=== PATIENT | female | born 1955 | race Caucasian/White ===

== ENCOUNTER → 2017-04-09 | Outpatient (CLI) | payer OTHER ==
[~2017-04-09] VITALS: Ht 157.5 cm; Wt 109.0 kg
[2017-04-09 16:13] VITALS: BP 142/83; PULSE 82; Ht 157.5 cm; Wt 109.0 kg
== END | disposition home or self-care (01) ==
LOC: C.NEUR 15:25
PROVIDERS: ATTEND Internal Medicine Pulmonary Disease
DX: G47.33 Obstructive sleep apnea (adult) (pediatric) (principal)

== ENCOUNTER 2017-07-09 07:06 | Inpatient (IN) | payer OTHER ==
[2017-06-24 11:34] VITALS: BMI 44.0
--- NOTE | 2017-06-24 12:16 | PAT Medication Instructions ---
Service Date Jun 24, 2017. Current Home Medication List Atorvastatin (Lipitor), 20 MG PO HS Citalopram Hydrobromide (Celexa), 20 MG PO QAM Diltiazem Hcl Ext Rel (Tiazac), 240 MG PO QAM Fish Oil ([place]-3), 2 CAP PO NOON Hydrocodon/Acetaminophen 5MG/300MG (Vicodin (5MG/300MG)), 1 TAB PO BID PRN for RN Levothyroxine Sodium (Levothyroxine Sodium), 1 TAB PO QAM Losartan Potassium (Cozaar), 100 MG PO QAM Multivitamin (Multivitamin), 1 TAB PO QAM Pantoprazole (Protonix), 40 MG PO QPM Potassium Ext Rel (Klor-Con), 20 MEQ PO NOON Triamterene/Hctz (Triamterene/Hctz 37.5-25MG), 1 TAB PO QAM Medication Instructions For Your Scheduled Surgery - Hold the following medications 2 weeks prior to surgery: Fish Oil ([place]-3), 2 CAP PO NOON - Hold the following medications the morning of surgery: Losartan Potassium (Cozaar), 100 MG PO QAM Multivitamin (Multivitamin), 1 TAB PO QAM Potassium Ext Rel (Klor-Con), 20 MEQ PO NOON Triamterene/Hctz (Triamterene/Hctz 37.5-25MG), 1 TAB PO QAM - Take the following medications the morning of surgery with a sip of water: Citalopram Hydrobromide (Celexa), 20 MG PO QAM Diltiazem Hcl Ext Rel (Tiazac), 240 MG PO QAM Hydrocodon/Acetaminophen 5MG/300MG (Vicodin (5MG/300MG)), 1 TAB PO BID PRN (if needed, can be taken up to four hours before surgery) Levothyroxine Sodium (Levothyroxine Sodium), 1 TAB PO QAM - Take the following medications as scheduled the night before surgery: Atorvastatin (Lipitor), 20 MG PO HS Hydrocodon/Acetaminophen 5MG/300MG (Vicodin (5MG/300MG)), 1 TAB PO BID PRN (if needed) Pantoprazole (Protonix), 40 MG PO QPM If you have any questions please call us at [phone] or [phone] or [phone]
[2017-06-24 13:09] LABS: BASO % 0.5 %; BASO ABS # 0.03 K/uL (0-0.2); EOS % 1.7 %; HEMATOCRIT 42.4 % (37-47); HEMOGLOBIN 14.4 g/dL (12.0-16.0); LYMPH % 33.4 %; LYMPH ABS # 1.99 K/uL (1.2-3.4); MEAN CELL VOLUME 86.5 fL (80-100); MEAN CORPUSCULAR HEMOGLOBIN 29.4 pg (25-34); MEAN PLATELET VOLUME 10.1 fL (7.4-10.4); MONO % 9.4 %; MONO ABS # 0.56 K/uL (0.11-0.59); NEUT ABS # 3.28 K/uL (1.4-6.5); PLATELET COUNT 233 K/uL (130-400); RED CELL DISTRIBUTION WIDTH CV 13.4 % (11.5-14.5); RED CELL DISTRIBUTION WIDTH SD 42.9 fL (36.4-46.3); WHITE BLOOD COUNT 5.96 K/uL (4.8-10.8)
--- NOTE | 2017-06-24 13:11 | DIAGNOSTIC IMAGING REPORT ---
CHEST 2 VIEWS ROUTINE CLINICAL HISTORY: PAT preoperative evaluation COMPARISON STUDY: No previous studies for comparison. FINDINGS: The bones soft tissues and hemidiaphragms are normal. The cardiomediastinal silhouette is normal. The lungs are clear. The pulmonary vasculature is normal. IMPRESSION: Negative chest. The above report was generated using voice recognition software. It may contain grammatical, syntax or spelling errors. Electronically signed by: Evert Vela M.D. 06/24/2017 1:10 PM Dictated Date/Time: 06/24/2017 1:10 PM
[2017-06-24 13:40] LABS: CALCIUM 8.9 mg/dl (8.5-10.1); CREATININE 0.84 mg/dl (0.60-1.20); POTASSIUM 3.7 mmol/L (3.5-5.1)
[2017-07-09] VITALS (9 sets, daily range): BP systolic 113–149; BP diastolic 65–87; PULSE 63–89; TEMP 36.4–36.7; O2SAT 92–96; Ht 157.5 cm; Wt 108.7 kg
[~2017-07-09] VITALS: Ht 157.5 cm; Wt 108.7 kg
[~2017-07-09 07:06] MED LIST: ACETAMINOPHEN 500 MG TAB PO SCH; ATOR-22 PO; CEFAZOLIN 2000MG IV PUSH 15 ML IV SCH; CITA20TA9 PO; CeleBREX 200 MG CAP PO SCH; DILT-115 PO; GABAPENTIN 600 MG PO SCH; HYDR-3419 PO; LACTATED RINGER'S 1000ML 1,000 ML IV SCH; LEVO75TA5 PO; LOSA1TAB38 PO; MULT-506 PO; OMEG10007 PO; PANT40TA PO; POTA-639 PO; TRIATAB3 PO
[2017-07-09] MEDS ORDERED: GLYCOPYRROLATE INJ 0.2 MG/ML VIAL ONE ×2 (08:20→13:43)
[2017-07-09] MEDS ORDERED: MIDAZOLAM HCL 1 MG/ML 2ML VIAL ONE (08:20)
[2017-07-09] MEDS ORDERED: NEOSTIGMINE METHYLSULFATE 1 MG/ML 10ML VIAL ONE (08:20)
[2017-07-09] MEDS ORDERED: LIDOCAINE HCL 2% 2 ML VIAL (20MG/ML) ONE (08:20)
[2017-07-09] MEDS ORDERED: ONDANSETRON INJ 2 MG/ML 2 ML VIAL ONE (08:20)
[2017-07-09] MEDS ORDERED: DEXAMETHASONE SOD INJ 4 MG/ML VIAL ONE (08:20)
[2017-07-09] MEDS ORDERED: PROPOFOL IV EMULSION 10 MG/ML 20 ML VIAL ONE (08:20)
[2017-07-09] MEDS ORDERED: FENTANYL CITRATE INJ 50 MCG/1 ML 2 ML VIAL ONE (08:20)
[2017-07-09] MEDS ORDERED: ONDANSETRON INJ 2 MG/ML 2 ML VIAL IV PRN ×2 (08:45→11:45)
[2017-07-09] MEDS ORDERED: ATROPINE SULFATE 0.1 MG/ML 5ML SYR IV PRN (08:45)
[2017-07-09] MEDS ORDERED: FENTANYL CITRATE INJ 50 MCG/1 ML 2 ML VIAL IV PRN (08:45)
[2017-07-09] MEDS ORDERED: EpHEDrine SULFATE INJ 50 MG/ML AMP IV PRN (08:45)
[2017-07-09] MEDS ORDERED: HYDROmorphone INJ 0.5 MG/0.5 ML SYR IV PRN (08:45)
--- NOTE | 2017-07-09 09:00 | History & Physical Bridge Note ---
H&P Re-Evaluation Bridge Note: I have examined the patient, reviewed the History & Physical and in the interval since the performance of the History & Physical I have noted the following changes of clinical significance: No changes noted
--- NOTE | 2017-07-09 09:01 | History and Physical ---
History & Physical Date July 09, 2017. Chief Complaint Back and leg pain History of Present Illness The patient is a 61 year old female with complaints of back and leg pain Additional History Hepatic Disease: No Endocrine Disorder: No Kidney Disease: No Hypertension: Yes Heart Disease: No Bleeding Tendencies: No Infectious Diseases: No Other: Obesity Allergies Coded Allergies: Adhesives (Verified Allergy, Unknown, RED SKIN WITH BANDAIDS LEFT ON LONGER TIMES, 07/09/17) NO KNOWN DRUG ALLERGIES (Verified Allergy, Unknown, NONE, 07/09/17) Home Medications Scheduled Atorvastatin (Lipitor), 20 MG PO HS Citalopram Hydrobromide (Celexa), 20 MG PO QAM Diltiazem Hcl Ext Rel (Tiazac), 240 MG PO QAM Fish Oil ([place]-3), 2 CAP PO NOON Levothyroxine Sodium (Levothyroxine Sodium), 1 TAB PO QAM Losartan Potassium (Cozaar), 100 MG PO QAM Multivitamin (Multivitamin), 1 TAB PO QAM Pantoprazole (Protonix), 40 MG PO QPM Potassium Ext Rel (Klor-Con), 20 MEQ PO NOON Triamterene/Hctz (Triamterene/Hctz 37.5-25MG), 1 TAB PO QAM Scheduled PRN Hydrocodon/Acetaminophen 5MG/300MG (Vicodin (5MG/300MG)), 1 TAB PO BID PRN for RN Physical Examination Skin: warm/dry, no rash Eyes: normal inspection, EOMI, sclerae normal ENT: normal ENT inspection, pharynx normal Head: normocephalic, atraumatic Neck: supple, no adenopathy, trachea midline Respiratory/Chest: lungs clear, normal breath sounds, no respiratory distress Cardiovascular: regular rate, rhythm, no edema, no murmur Abdomen / GI: normal bowel sounds, non tender Back: normal inspection Extremities: normal inspection, normal range of motion Neurologic/Psych: no motor/sensory deficits, alert, normal reflexes, oriented x 3 Diagnosis Lumbar spinal stenosis with spondylolisthesis and neurogenic claudication Plan of Treatment T LIF L5-S1
[2017-07-09] MEDS ORDERED: BACITRACIN 50000 UNIT VIAL ONE (09:26)
[2017-07-09] MEDS ORDERED: BUPIVACAINE 0.5 % 5 MG/1 ML MPF 30ML VIAL ONE (09:26)
[2017-07-09] MEDS ORDERED: EpINEphrine INJ 1MG/ML AMP 1 MG/ML AMP ONE (09:27)
[2017-07-09] MEDS ORDERED: HYDROmorphone INJ 2 MG/ML SYR/VIAL ONE (10:01)
[2017-07-09] MEDS ORDERED: FLOSEAL HEMOSTATIC MATRIX 10ML TOP ONE (11:27)
--- NOTE | 2017-07-09 11:38 | [facility] Operative Report ---
Operative Report Operative Date July 09, 2017. Pre-Operative Diagnosis Lumbar spinal stenosis with spondylolisthesis and neurogenic claudication Post-Operative Diagnosis Lumbar spinal stenosis with spondylolisthesis and neurogenic claudication Procedure(s) Performed 1. Lumbar decompression medial facetectomies foraminotomies L4-5 L5-S1. #2 posterior spinal fusion L5-S1. #3 placement posterior instrumentation L5-S1. #4 interbody fusion L5-S1. #5 placement of titanium cage 10 x 26 mm at L5-S1. #6 placement of locally harvested morselized autograft in the posterior lateral gutters. #7 placement of infuse collagen sponge combined with master graft in the posterior lateral gutters and ostial amp in the interbody space. Surgeon Dr. Israel Brennan Graining Machine Operator Surgeon(s) Mayuri Mast PA-C Estimated Blood Loss 200ml Findings Severe spinal stenosis with spondylolisthesis Specimens None per surgeon Anesthesia Type General Description of Procedure Patient was met with preoperatively case discussed all questions addressed. After informed consent obtained patient was taken to the operative suite underwent intubation and placed in a prone position on the David table on top of the Elder frame. All bony prominences well-padded eyes inspected to ensure no external pressure placed upon the. This point the lumbar spine was prepped and draped in the normal sterile fashion. Sharp dissection with the assistance of Bovie cautery was then performed down to and exposing the lamina and transverse process of L5 and sacral ala bilaterally. Obvious pars defect appreciated. Complete laminectomy of L5 and partial laminectomy of L4 was performed addressing severe lateral recess and foraminal stenosis. Pedicle screws were then placed in L5 and S1 levels bilaterally with the assistance of fluoroscopy and the purposes keron placed. Trans-foraminal approach on the right complete discectomy was performed endplates created to subcortical bleeding bone and a 10 x 26 mm titanium cage filled with ostial amp bone graft tapped into position. The rods were then compressed locked in final position bilaterally. The transverse processes of L5 and the sacral ala burred to subcortical bleeding bone. Infuse collagen sponge mesh graft and locally harvested morselized autograft placed in the posterior gutters. A 15 round BELA drain inserted. Incision was then closed with 1 Vicryl fascia 2-0 Vicryl subcutaneous and 4-0 Monocryl fashion closure Steri-Strips sterile dressings placed. Patient will continue to PACU in a stable condition. Please note Mayuri Mast present throughout the entire procedure involved in patient positioning complex portions of the procedure and f final skin closure. I attest to the content of the Intraoperative Record and any orders documented therein. Any exceptions are noted below.
--- NOTE | 2017-07-09 11:41 | DIAGNOSTIC IMAGING REPORT ---
LUMBAR SPINE, INTRAOPERATIVE FLUOROSCOPY HISTORY: L5-S1 decompression and fusion. FLUOROSCOPY TIME: 30 seconds. FINDINGS: Intraoperative fluoroscopy was provided for the lumbar spine. 2 fluoroscopic spot images were obtained. Posterior decompression and fusion at L5-S1 with pedicle screws and rods. The hardware appears intact. IMPRESSION: Fluoroscopy provided for a L5-S1 posterior decompression and fusion. Electronically signed by: Shelton Gómez M.D. 07/09/2017 11:40 AM Dictated Date/Time: 07/09/2017 11:39 AM
[2017-07-09] MEDS ORDERED: CEFAZOLIN IV 2,000 MG in DEXTROSE 5% 50ML 50 ML IV SCH (11:45)
[2017-07-09] MEDS ORDERED: ALUMINUM/MAGNESIUM SUSP 30 ML UDC PO PRN (11:45)
[2017-07-09] MEDS ORDERED: ACETAMINOPHEN 500 MG TAB PO PRN (11:45)
[2017-07-09] MEDS ORDERED: SOD PHOSPHATE/SOD BIPHOSPHATE ENEMA 132 ML BTL PR PRN (11:45)
[2017-07-09] MEDS ORDERED: LORAZEPAM 0.5 MG TAB PO PRN (11:45)
[2017-07-09] MEDS ORDERED: FAMOTIDINE 20 MG TAB PO PRN (11:45)
[2017-07-09] MEDS ORDERED: LORAZEPAM INJ 0.5 MG in SYRINGE 0.75 ML IV PRN (11:45)
[2017-07-09] MEDS ORDERED: hydrOXYzine HCL 25 MG TAB PO PRN (11:45)
[2017-07-09] MEDS ORDERED: METOCLOPRAMIDE HCL INJ 5 MG/ML 2 ML VIAL IV PRN (11:45)
[2017-07-09] MEDS ORDERED: ACETAMINOPHEN IV 100 ML IV PRN (11:45)
[2017-07-09] MEDS ORDERED: NALOXONE HCL 0.4 MG/1 ML VIAL/CARP IV PRN (11:45)
[2017-07-09] MEDS ORDERED: MAGNESIUM HYDROXIDE SUSP 30 ML UDC PO PRN (11:45)
[2017-07-09] MEDS ORDERED: PROMETHAZINE HCL INJ 12.5 MG in SODIUM CHLORIDE 0.9% 50ML 50 ML IV PRN (11:45)
[2017-07-09] MEDS ORDERED: DO NOT ADMINISTER FLU VACCINE PRN (11:45)
[2017-07-09] MEDS ORDERED: DO NOT ADMINISTER PNEUMOCOCCAL VACCINE PRN (11:45)
[2017-07-09] MEDS ORDERED: BISACODYL 10 MG SUPP PR PRN (11:45)
[2017-07-09] MEDS ORDERED: HYDROmorphone HCL 0.5MG/ML 50 ML CASSETTE ONE (12:12)
[2017-07-09] MEDS ORDERED: NURSING VERBAL MED ORDER ONE (12:45)
[2017-07-09] MEDS ORDERED: SODIUM CHLORIDE 0.9% 1000ML 1,000 ML IV SCH (12:49)
[2017-07-09] MEDS ORDERED: ALBUT/IPRATROP 3MG/0.5MG NEB 3 ML VIAL INH ONE (13:15)
[2017-07-09] MEDS ORDERED: ROCURONIUM BROMIDE 10 MG/ML 5 ML VIAL ONE (13:43)
[2017-07-09] MEDS ORDERED: ALBUTEROL HFA INHALER 8.5 GM INH ONE (13:45)
[2017-07-09] MEDS ORDERED: FLUMAZENIL 0.1 MG/1 ML 10 ML VIAL IV ONE (13:45)
[2017-07-09] MEDS: HYDROmorphone HCL 0.5MG/ML 50 ML CASSETTE IV PRN ×2 (15:04→23:21)
--- NOTE | 2017-07-09 15:07 | Anesthesiology Progress Note ---
Anesthesia Post Op Note Date & Time July 09, 2017 at 15:06 Vital Signs Pain Intensity: 6.0 Vital Signs Past 12 Hours Date Time Temp Pulse Resp B/P (MAP) Pulse Ox O2 Delivery O2 Flow Rate FiO2 07/09/17 14:20 88 18 137/79 (98) 93 07/09/17 13:50 75 18 122/65 (84) 94 07/09/17 13:20 93 Nasal Cannula 4.0 07/09/17 13:20 Nasal Cannula 4.0 07/09/17 13:20 36.7 84 18 130/83 (99) 93 Nasal Cannula 4.0 07/09/17 13:05 70 17 123/78 (96) 96 Nasal Cannula 4 07/09/17 12:54 36.4 77 16 122/81 (96) 96 Nasal Cannula 4 07/09/17 12:53 85 16 96 Nasal Cannula 5.0 07/09/17 12:52 82 16 07/09/17 12:52 81 16 96 07/09/17 12:50 135/83 07/09/17 12:47 84 18 07/09/17 12:47 85 18 98 07/09/17 12:45 132/86 07/09/17 12:42 90 17 88 07/09/17 12:42 90 17 07/09/17 12:40 129/84 07/09/17 12:37 92 16 07/09/17 12:37 92 16 90 07/09/17 12:36 95 10 91 07/09/17 12:36 96 10 07/09/17 12:35 140/95 07/09/17 12:31 101 16 89 07/09/17 12:31 100 16 07/09/17 12:30 131/83 07/09/17 12:26 100 16 07/09/17 12:26 100 16 92 07/09/17 12:25 99 16 128/87 91 07/09/17 12:25 99 16 07/09/17 12:20 107 17 135/87 07/09/17 12:20 17 07/09/17 12:15 105 18 07/09/17 12:15 104 18 122/78 87 07/09/17 12:10 109 19 131/77 88 07/09/17 12:10 109 19 07/09/17 12:06 149/94 07/09/17 12:05 97 15 159/106 86 07/09/17 12:05 98 15 07/09/17 12:05 36.5 103 16 149/94 (109) 92 Oxymask 10 07/09/17 07:30 36.7 63 20 149/74 95 Room Air Notes Mental Status: alert / awake / arousable, participated in evaluation Pt Amnestic to Procedure: Yes Nausea / Vomiting: adequately controlled Pain: adequately controlled Airway Patency, RR, SpO2: stable & adequate BP & HR: stable & adequate Hydration State: stable & adequate Anesthetic Complications: no major complications apparent
--- NOTE | 2017-07-09 15:14 | Medical Consult ---
Consultation Date of Consultation: July 09, 2017. Attending Physician: Israel Brennan D.O. Reason for Consultation: post-op medical mgmt History of Present Illness This is a 61yo F with a PMH of HTN, HLD, hypothyroidism, NEVAEH (on CPAP) and lumbar stenosis who is POD #0 s/p decompression and fusion of L5-S1 by Dr. Brennan. Patient is doing well post-operatively. States that back pain is a 4/ 10. Feels fatigued but denies fever, chills, lightheadedness, headache, visual changes, sore throat, CP, SOB, abdominal pain, nausea, vomiting, dysuria or LE swelling. PCP is CHELSI Martins. Denies personal history of DVT/PE, CHF or DM II. Took diltiazem pre-operatively this AM but losartan and triamterene/hctz were held. Normotensive currently. Past Medical/Surgical History Medical Problems: (1) Anxiety Status: Chronic (2) GERD (gastroesophageal reflux disease) Status: Chronic (3) HLD (hyperlipidemia) Status: Chronic (4) HTN (hypertension) Status: Chronic (5) Hypothyroidism Status: Chronic (6) Lumbar stenosis with neurogenic claudication Status: Chronic (7) NEVAEH on CPAP Status: Chronic Surgical Problems: (1) S/P cholecystectomy Status: Resolved (2) Status post carpal tunnel release of both wrists Status: Resolved Family History Hypertension Social History Smoking Status: Never Smoker Alcohol Use: occasionally (1x/month ) Marital Status: Housing Status: lives with significant other Allergies Coded Allergies: Adhesives (Verified Allergy, Unknown, RED SKIN WITH BANDAIDS LEFT ON LONGER TIMES, 07/09/17) NO KNOWN DRUG ALLERGIES (Verified Allergy, Unknown, NONE, 07/09/17) Current Inpatient Medications Current Inpatient Medications Medications (Trade) Dose Ordered Sig/Darian Route Start Time Stop Time Status Last Admin Dose Admin Lactated Ringer's 1,000 ml @ 15 mls/hr Q24H IV 07/09/17 06:00 07/10/17 05:59 07/09/17 08:17 15 MLS/HR Cefazolin Sodium 15 ml @ 3.75 mls/ min PREOP IV 07/09/17 06:00 07/09/17 18:00 07/09/17 09:42 3.75 MLS/MIN Acetaminophen (Tylenol Tab) 1,000 mg PREOP PO 07/09/17 06:00 07/09/17 18:00 07/09/17 08:17 1,000 MG Celecoxib (CeleBREX CAP) 200 mg PREOP PO 07/09/17 06:00 07/09/17 18:00 07/09/17 08:17 200 MG Gabapentin (Neurontin Cap) 600 mg PREOP PO 07/09/17 06:00 07/09/17 18:00 07/09/17 08:17 600 MG Promethazine HCl 12.5 mg/Sodium Chloride 50.5 ml @ 202 mls/hr Q6H PRN IV 07/09/17 11:45 08/08/17 11:44 Ondansetron HCl (Zofran Inj) 4 mg Q6H PRN IV 07/09/17 11:45 08/08/17 11:44 Metoclopramide HCl (Reglan Inj) 10 mg Q6H PRN IV 07/09/17 11:45 08/08/17 11:44 Lorazepam (Ativan Tab) 0.5 mg Q8H PRN PO 07/09/17 11:45 08/08/17 11:44 Lorazepam 0.5 mg/ Syringe 1 ml @ 1 mls/min Q8H PRN IV 07/09/17 11:45 08/08/17 11:44 Pneumococcal Polysaccharide Vaccine 1 ea PRN PRN N/A 07/09/17 11:45 08/08/17 11:44 Influenza Virus Vacc Triv Types A&B 1 ea PRN PRN N/A 07/09/17 11:45 08/08/17 11:44 Polyethylene (Miralax Powder Packet) 17 gm Q6 PO 07/11/17 06:00 08/10/17 05:59 Bisacodyl (Dulcolax Supp) 10 mg DAILY PRN MT 07/09/17 11:45 08/08/17 11:44 Magnesium Hydroxide (Milk Of Magnesia Susp) 30 ml DAILY PRN PO 07/09/17 11:45 08/08/17 11:44 Hydromorphone HCl (Dilaudid Inj) 0.5-1mg prn moder... Q3H PRN IV 07/10/17 06:00 07/24/17 05:59 Oxycodone HCl (Roxicodone Immediate Rel Tab) 5-10mg prn moderate to sev... Q4H PRN PO 07/10/17 06:00 07/24/17 05:59 Sodium Chloride 1,000 ml @ 150 mls/hr Q6H40M IV 07/09/17 14:00 08/08/17 13:59 Acetaminophen (Tylenol Tab) 1,000 mg Q8H PRN PO 07/09/17 11:45 08/08/17 11:44 Acetaminophen 100 ml @ 400 mls/hr Q8H PRN IV 07/09/17 11:45 08/08/17 11:44 Naloxone HCl (Narcan Inj) 0.1 mg Q5M PRN IV 07/10/17 06:00 08/09/17 05:59 Senna/Docusate Sodium (Senokot S Tab) 2 tab HS PO 07/09/17 21:00 08/08/17 20:59 Sodium Biphosphate/ Sodium Phosphate (Fleet Enema) 132 ml ONE PRN MT 07/09/17 11:45 08/08/17 11:44 Hydroxyzine HCl (Vistaril Tab) 25 mg Q8H PRN PO 07/09/17 11:45 08/08/17 11:44 Al Hydroxide/Mg Hydroxide (Maalox Susp) 30 ml Q6H PRN PO 07/09/17 11:45 08/08/17 11:44 Famotidine (Pepcid Tab) 20 mg Q12 PRN PO 07/09/17 11:45 08/08/17 11:44 Diphenhydramine HCl (Benadryl Cap) 25 mg Q6H PRN PO 07/09/17 11:45 08/08/17 11:44 Miscellaneous Information (Discontinue CONSTRUCTION ECONOMIST) 1 ea TODAY@0600 ONCE N/A 07/10/17 06:00 07/10/17 06:01 Naloxone HCl (Narcan Inj) 0.1 mg Q5M PRN IV 07/09/17 11:45 07/10/17 06:00 Hydromorphone HCl (Dilaudid Notereader) 25 mg PRN PRN IV 07/09/17 11:45 07/10/17 06:00 07/09/17 15:04 25 MG Sodium Chloride 1,000 ml @ 15 mls/hr Q24H IV 07/09/17 12:49 07/10/17 06:00 Atorvastatin Calcium (Lipitor Tab) 20 mg HS PO 07/09/17 21:00 08/08/17 20:59 Citalopram Hydrobromide (celeXA TAB) 20 mg QAM PO 07/10/17 09:00 08/09/17 08:59 Diltiazem HCl (TIAzac CAP) 240 mg QAM PO 07/10/17 09:00 08/09/17 08:59 Levothyroxine Sodium (Synthroid Tab) 75 mcg DAILYBB PO 07/10/17 06:00 08/09/17 05:59 Losartan Potassium (coZAAR TAB) 100 mg QAM PO 07/10/17 09:00 08/09/17 08:59 Pantoprazole Sodium (Protonix Tab) 40 mg QPM PO 07/09/17 21:00 08/08/17 20:59 Potassium Chloride (Klor-Con Tab) 20 meq DAILY PO 07/10/17 09:00 08/09/17 08:59 Triamterene/HCTZ (Maxzide 37.5/25 Tab) 1 tab QAM PO 07/10/17 09:00 08/09/17 08:59 Cefazolin Sodium 2000 mg/Syringe 15 ml @ 3.75 mls/ min Q8H IV 07/09/17 18:00 07/10/17 02:03 Review of Systems Ten systems reviewed and negative except as noted in the HPI. Physical Exam Date Time Temp Pulse Resp B/P (MAP) Pulse Ox O2 Delivery O2 Flow Rate FiO2 07/09/17 14:20 88 18 137/79 (98) 93 07/09/17 13:50 75 18 122/65 (84) 94 07/09/17 13:20 93 Nasal Cannula 4.0 07/09/17 13:20 Nasal Cannula 4.0 07/09/17 13:20 36.7 84 18 130/83 (99) 93 Nasal Cannula 4.0 07/09/17 13:05 70 17 123/78 (96) 96 Nasal Cannula 4 07/09/17 12:54 36.4 77 16 122/81 (96) 96 Nasal Cannula 4 07/09/17 12:53 85 16 96 Nasal Cannula 5.0 07/09/17 12:52 82 16 5/8/18 12:52 81 16 96 07/09/17 12:50 135/83 07/09/17 12:47 84 18 07/09/17 12:47 85 18 98 07/09/17 12:45 132/86 07/09/17 12:42 90 17 88 07/09/17 12:42 90 17 07/09/17 12:40 129/84 07/09/17 12:37 92 16 07/09/17 12:37 92 16 90 07/09/17 12:36 95 10 91 07/09/17 12:36 96 10 07/09/17 12:35 140/95 07/09/17 12:31 101 16 89 07/09/17 12:31 100 16 07/09/17 12:30 131/83 07/09/17 12:26 100 16 07/09/17 12:26 100 16 92 07/09/17 12:25 99 16 128/87 91 07/09/17 12:25 99 16 07/09/17 12:20 107 17 135/87 07/09/17 12:20 17 07/09/17 12:15 105 18 07/09/17 12:15 104 18 122/78 87 07/09/17 12:10 109 19 131/77 88 07/09/17 12:10 109 19 07/09/17 12:06 149/94 07/09/17 12:05 97 15 159/106 86 07/09/17 12:05 98 15 07/09/17 12:05 36.5 103 16 149/94 (109) 92 Oxymask 10 07/09/17 07:30 36.7 63 20 149/74 95 Room Air General Appearance: WD/WN, no apparent distress, + pertinent finding (Resting comfortably) Head: normocephalic, atraumatic Eyes: normal inspection, PERRL, sclerae normal ENT: normal ENT inspection, hearing grossly normal, pharynx normal Neck: supple, thyroid normal, trachea midline Respiratory/Chest: chest non-tender, lungs clear, normal breath sounds, no respiratory distress, no accessory muscle use Cardiovascular: regular rate, rhythm, no murmur, normal peripheral pulses Abdomen/GI: normal bowel sounds, non tender, soft, no organomegaly Genitourinary - Female: + pertinent finding (willis) Back: normal inspection, + pertinent finding (Lumbosacral surgical bandage in place. Clean, dry, intact. Drain visualized. ) Extremities/Musculoskelatal: normal inspection, no calf tenderness, no pedal edema, + pertinent finding (SCDs) Neurologic/Psych: no motor/sensory deficits, alert, normal mood/affect, oriented x 3 Skin: normal color, warm/dry, no rash Laboratory Results Pertinent pre-op labs: Item Value Date Time White Blood Count 5.96 K/uL 06/24/17 1225 Red Blood Count 4.90 M/uL 06/24/17 1225 Hemoglobin 14.4 g/dL 06/24/17 1225 Platelet Count 233 K/uL 06/24/17 1225 Sodium Level 140 mmol/L 06/24/17 1225 Potassium Level 3.7 mmol/L 06/24/17 1225 Chloride Level 106 mmol/L 06/24/17 1225 Blood Urea Nitrogen 17 mg/dl 06/24/17 1225 Creatinine 0.84 mg/dl 06/24/17 1225 Estimated GFR (Non- 74.0 06/24/17 1225 Assessment & Plan This is a 61yo F with a PMH of HTN, HLD, hypothyroidism, NEVAEH (on CPAP) and lumbar stenosis who is POD #0 s/p decompression and fusion of L5-S1 by Dr. Brennan. Lumbar spenisis POD#0 s/p spinal surgery: -S/p decompression and fusion of L5-S1 by Dr. Brennan -Doing well post-operatively -Per ortho for pain control, wound care, anticoagulation and activities -Monitor H&H, continue incentive spirometry, PT/OT when appropriate HTN: -Normotensive with BP of 137/79 -Took diltiazem pre-operatively this AM but losartan and triamterene/hctz were held -Monitor BP and give home dose of losartan if indicated -Continue all home BP meds tomorrow Hypothyroidism: -Cont levothyroxine NEVAEH: -May use CPAP from home HLD: -Cont statin Anxiety: -Cont Celexa GERD: -Cont protonix PCP: CHELSI Martins Dispo: Per ortho Patient seen in collaboration with Dr. Modi. Please see addendum. Thank you for this consultation. We will follow the patient with you during their hospital stay. [facility] via pager @ [phone]. ATTENDING ADDENDUM: Patient seen and examined care coordinated with Azalia Bates PA-C This is a 61-year-old female with chronic low back pain lumbar spinal stenosis underwent lumbar decompression fusion surgery today Recovering well postop Pain well controlled Patient will be continued with outpatient antihypertensive meds Monitor renal function as patient is on diuretics as well Please refer to further documentation by Azalia Bates PA-C for discussion of other chronic issues Rosalva Modi MD
[2017-07-09] MEDS: CEFAZOLIN IV 2,000 MG in SYRINGE 0 ML IV SCH (19:00)
[2017-07-09] MEDS: ATORVASTATIN 20 MG TAB PO SCH (20:38)
[2017-07-09] MEDS: PANTOprazole SOD 40 MG TAB PO SCH (20:38)
[2017-07-09] MEDS: DOCUSATE SODIUM/SENNA 50/8.6MG TAB PO SCH (20:38)
[2017-07-09] MEDS: SODIUM CHLORIDE 0.9% 1000ML 1,000 ML IV SCH ×2 (20:40→21:30)
[2017-07-10] MEDS: CEFAZOLIN IV 2,000 MG in SYRINGE 0 ML IV SCH (01:50)
[2017-07-10 03:21] VITALS: BP 122/77; PULSE 88; TEMP 36.9; O2SAT 92
[2017-07-10] MEDS: SODIUM CHLORIDE 0.9% 1000ML 1,000 ML IV SCH (03:56)
[2017-07-10] MEDS: LEVOTHYROXINE 75 MCG TAB PO SCH (05:20)
[2017-07-10] MEDS ORDERED: NALOXONE HCL 0.4 MG/1 ML VIAL/CARP IV PRN (06:00)
[2017-07-10] MEDS ORDERED: NURSING VERBAL MED ORDER ONE (06:00)
[2017-07-10] MEDS ORDERED: DC PCA ONE (06:00)
[2017-07-10 06:16] LABS: HEMATOCRIT 37.3 % (37-47); HEMOGLOBIN 12.6 g/dL (12.0-16.0); IG# 0.04 K/uL (0.00-0.02); LYMPH % 4.7 %; LYMPH ABS # 0.69 K/uL (1.2-3.4); MEAN CELL VOLUME 85.4 fL (80-100); MEAN CORPUSCULAR HEMOGLOBIN 28.8 pg (25-34); MEAN CORPUSCULAR HGB CONC 33.8 g/dl (32-36); MEAN PLATELET VOLUME 10.4 fL (7.4-10.4); MONO % 5.6 %; MONO ABS # 0.82 K/uL (0.11-0.59); NEUT % 89.4 %; NEUT ABS # 13.16 K/uL (1.4-6.5); PLATELET COUNT 253 K/uL (130-400); RED CELL DISTRIBUTION WIDTH CV 13.3 % (11.5-14.5); RED CELL DISTRIBUTION WIDTH SD 41.5 fL (36.4-46.3); WHITE BLOOD COUNT 14.71 K/uL (4.8-10.8)
[2017-07-10 06:44] LABS: CALCIUM 8.1 mg/dl (8.5-10.1); CREATININE 0.8 mg/dl (0.60-1.20); POTASSIUM 3.5 mmol/L (3.5-5.1)
[2017-07-10] MEDS: HYDROmorphone INJ 0.5 MG/0.5 ML SYR IV PRN (07:46)
[2017-07-10 08:23] VITALS: BP 139/80; PULSE 84; TEMP 36.9; O2SAT 90
[2017-07-10] MEDS: CITALOPRAM 20 MG TAB PO SCH (09:19)
[2017-07-10] MEDS: LOSARTAN POTASSIUM 50 MG TAB PO SCH (09:19)
[2017-07-10] MEDS: DILTIAZEM HCL 120 MG EXT REL CAP PO SCH (09:20)
[2017-07-10] MEDS: TRIAMTERENE/HCTZ 37.5/25MG TAB PO SCH (09:20)
[2017-07-10] MEDS: POTASSIUM CHLORIDE 20 MEQ TABCR PO SCH (09:21)
[2017-07-10] MEDS ORDERED: RXC5 PO (09:57)
--- NOTE | 2017-07-10 09:58 | Discharge Instructions ---
Discharge Instructions Date of Service July 10, 2017. Admission Reason for Admission: Lumbar Spinal Stenosis L5-S1 Discharge Discharge Diagnosis / Problem: lumbar stenosis Discharge Goals Goal(s): Improve function Activity Recommendations Activity Limitations: per Instructions/Follow-up section . Instructions / Follow-Up Instructions / Follow-Up ACTIVITY RECOMMENDATIONS: SELF CARE INSTRUCTIONS AFTER THORACIC/LUMBAR FUSIONS 1. You may walk to your tolerance. It is good exercise for your legs and back. Expect some back and intermittent leg aches and pains. 2. You may perform "counter-top" level activities (make a sandwich, juan with a project, etc.). 3. No bending or lifting of more than 10 pounds or back twisting of any nature (roll like a log when turning in bed). 4. You may ride in a car for 20-30 minutes at a time. No driving until after your first visit with your doctor. 5. Frequent changes of position and restricting sitting to 30 minutes at a time will help limit the amount of back spasms and stiffness you may experience. 6. You may discontinue the use of ambulatory aids (cane, crutches, etc.) once your strength and confidence allow. 7. You may straightening machine feeder the shower and let water strike your incision when you arrive home at least once daily. Do not take a tub bath, sit in a hot tub or go into a swimming pool until after your first recheck in the office. SPECIAL CARE INSTRUCTIONS: VERY IMPORTANT TO READ AND REVIEW A. Your surgical incision has been closed with a cosmetic suture under the skin that will dissolve in about 6 weeks. In 14 days, you can use a pair of clean scissors and cut the suture that is left outside of the skin at the ends of your incision. 1. The small skin tapes can be removed 7 days after surgery if they have not fallen off by that point. 2. You may keep the wound open to air as much as possible to promote healing after post-op day number 5 unless told otherwise by your doctor. 3. If you think the wound looks like it is becoming infected (redness or worsening drainage) and/or you are experiencing fever, chill or worsening back pain and muscle spasms, contact the office so that we may evaluate you as soon as possible. B. Complications are uncommon, but please contact us if you have any signs or symptoms of: 1. wound infection (fever higher than 102.5 degrees F, redness, separation of wound, drainage, or increasing pain from the incision) 2. blood clots in legs (pain, swelling, redness and warmth in legs) 3. urinary tract infection (fever higher than 102.5 degrees F, burning upon urination or increased frequency of urination) 4. nerve problems (inability to walk on your toes or heels, numbness, loss of bowel or bladder control) 5. any other symptoms that concern you C. Please call the office at if you have any concerns or questions about your operation or recovery. D. No smoking! Smoking drastically decreases the chance of a solid fusion. E. Do not take any anti-inflammatory medications (Indocin, Advil, Motrin, Aspirin, Naprosyn, etc.) as these may inhibit the chance of a solid fusion. Tylenol is okay to take for pain. MANAGING PAIN AFTER SPINAL SURGERY 1. Narcotic medication is intended for short-term use and will be provided for surgical pain. Surgical pain usually lasts for a period of 4-6 weeks. Narcotic medication includes Percocet, Vicodin, Darvocet, Tylenol #3 or Lortab. 2. Longer-term pain is more appropriately treated with non-narcotic medication such as Tylenol ES. 3. Muscle spasm is not appropriately treated with narcotics. Muscle relaxers such as Soma, Flexeril or Skelaxin can be used along with Tylenol ES. 4. Remember that we all live with some "aches and pains". This is not unusual or uncommon after an injury or as we get older. a. Back pain is expected and may include muscle spasms for 4 to 6 weeks after surgery. The pain should gradually improve. If the pain worsens for no apparent reason, please contact the office. b. Intermittent leg pain may also be experienced and should not be concerned about unless it worsens for no apparent reason. If so, please contact the office. 5. We will provide appropriate medication within the normal guidelines of their prescribed use. We will also be very cautious and aware of potential abuse and extended duration of patients' medication needs. a. Pain medications are for your comfort and to assist with sleep and rest so that the tissue can heal. They are not provided in order to return to normal activity and should not be used through the day. To do so or worsening pain at night can result from ongoing tissue damage and development of tolerance to the prescribed medicine. 6. Please allow 2-3 days to process refills. Prescriptions will not be mailed but must be picked up at the office. FOLLOW UP VISIT: Keep your scheduled follow-up appointment. Any questions, please call the office at . Current Hospital Diet Patient's current hospital diet: Regular Diet Discharge Diet Recommended Diet: Regular Diet Procedures Procedures Performed: 1. Lumbar decompression medial facetectomies foraminotomies L4-5 L5-S1. #2 posterior spinal fusion L5-S1. #3 placement posterior instrumentation L5-S1. #4 interbody fusion L5-S1. #5 placement of titanium cage 10 x 26 mm at L5-S1. #6 placement of locally harvested morselized autograft in the posterior lateral gutters. #7 placement of infuse collagen sponge combined with master graft in the posterior lateral gutters and ostial amp in the interbody space. Pending Studies Studies pending at discharge: no Medical Emergencies . Who to Call and When: Medical Emergencies: If at any time you feel your situation is an emergency, please call 911 immediately. . Non-Emergent Contact Non-Emergency issues call your: Primary Care Provider . "Provider Documentation" section prepared by Israel Brennan. .
--- NOTE | 2017-07-10 10:03 | Progress Note ---
Progress Note Date of Service July 10, 2017. Progress Note Patient's back pain is controlled. Leg symptoms improved. Vital signs stable. On exam she is in a chair at bedside is good strength testing appears quite comfortable. Assessment status post lumbar decompression fusion per plan at this time will continue with physical therapy advance her bowel regiment anticipate discharge home the next few days.
[2017-07-10] MEDS: OXYCODONE HCL IR 5 MG TAB (IMMEDIATE RELEASE) PO PRN (10:20)
[2017-07-10 12:00] VITALS: BP 126/77; PULSE 87; TEMP 36.9; O2SAT 93
[2017-07-10] MEDS: KETOROLAC TROMETHAMINE 30 MG/ML VIAL IV PRN ×2 (12:02→19:00)
[2017-07-10 16:09] VITALS: BP 150/78; PULSE 76; TEMP 36.8; O2SAT 94
[2017-07-10] MEDS: PANTOprazole SOD 40 MG TAB PO SCH (20:48)
[2017-07-10] MEDS: ATORVASTATIN 20 MG TAB PO SCH (20:48)
[2017-07-10] MEDS: DOCUSATE SODIUM/SENNA 50/8.6MG TAB PO SCH (20:48)
--- NOTE | 2017-07-10 22:16 | Progress Note ---
Medicine Progress Note Date & Time of Visit: July 10, 2017 at 1500. Subjective 61-year-old female with lumbar spinal stenosis who is status post decompression and fusion of L5-S1 by Dr. Brennan yesterday. Patient reports that her pain is controlled. She is tolerating p.o. Drain is in place Objective Last 8 Hrs Date Time Temp Pulse Resp B/P (MAP) Pulse Ox O2 Delivery O2 Flow Rate FiO2 07/10/17 16:09 36.8 76 18 150/78 (102) 94 Room Air 07/10/17 16:06 Room Air Physical Exam: GEN: WNWD, in no acute distress, alert and appropriate HEENT: NC/AT, PERRL, normal sclerae, MMM CARDIO: reg rate, S1/2 heard without m/g/r LUNGS: CTA bilaterally, no crackles, rales or wheezes, good diaphragmatic excursion ABD: soft, non-tender, non-distended, no rebound or guarding, +BS EXTREMITY: RP and DP palpable 2+ bilat, no LE swelling or edema, extremities are warm and well-perfused NEURO: CN 2-12 intact, sensation intact throughout lower extremities MUSC: Moves all extremities with ease, no gross focal deficits. Back: Incision site is covered with dressing that is clean dry and intact, BELA drain draining blood-tinged serous fluid SKIN: warm and dry Laboratory Results: 07/10/17 05:29 Red Blood Count 4.37, Mean Corpuscular Volume 85.4, Mean Corpuscular Hemoglobin 28.8, Mean Corpuscular Hemoglobin Concent 33.8, Mean Platelet Volume 10.4, Neutrophils (%) (Auto) 89.4, Lymphocytes (%) (Auto) 4.7, Monocytes (%) (Auto) 5.6, Eosinophils (%) (Auto) 0.0, Basophils (%) (Auto) 0.0, Neutrophils # (Auto) 13.16, Lymphocytes # (Auto) 0.69, Monocytes # (Auto) 0.82, Eosinophils # (Auto) 0.00, Basophils # (Auto) 0.00 07/10/17 05:29 Test 06/24/17 00:00 07/10/17 05:29 Urine Color YELLOW Urine Appearance CLEAR (CLEAR) Urine pH 8.0 (4.5-7.5) Urine Specific [place] 1.011 (1.000-1.030) Urine Protein NEG (NEG) Urine Glucose (UA) NEG (NEG) Urine Ketones NEG (NEG) Urine Occult Blood NEG (NEG) Urine Nitrite NEG (NEG) Urine Bilirubin NEG (NEG) Urine Urobilinogen NEG (NEG) Urine Leukocyte Esterase NEG (NEG) White Blood Count 14.71 K/uL (4.8-10.8) Red Blood Count 4.37 M/uL (4.2-5.4) Hemoglobin 12.6 g/dL (12.0-16.0) Hematocrit 37.3 % (37-47) Mean Corpuscular Volume 85.4 fL (80-100) Mean Corpuscular Hemoglobin 28.8 pg (25-34) Mean Corpuscular Hemoglobin Concent 33.8 g/dl (32-36) Platelet Count 253 K/uL (130-400) Mean Platelet Volume 10.4 fL (7.4-10.4) Neutrophils (%) (Auto) 89.4 % Lymphocytes (%) (Auto) 4.7 % Monocytes (%) (Auto) 5.6 % Eosinophils (%) (Auto) 0.0 % Basophils (%) (Auto) 0.0 % Neutrophils # (Auto) 13.16 K/uL (1.4-6.5) Lymphocytes # (Auto) 0.69 K/uL (1.2-3.4) Monocytes # (Auto) 0.82 K/uL (0.11-0.59) Eosinophils # (Auto) 0.00 K/uL (0-0.5) Basophils # (Auto) 0.00 K/uL (0-0.2) RDW Standard Deviation 41.5 fL (36.4-46.3) RDW Coefficient of Variation 13.3 % (11.5-14.5) Immature Granulocyte % (Auto) 0.3 % Immature Granulocyte # (Auto) 0.04 K/uL (0.00-0.02) Anion Gap 7.0 mmol/L (3-11) Est Creatinine Clear Calc Drug Dose 83.6 ml/min Estimated GFR () 90.9 Estimated GFR (Non- 78.5 BUN/Creatinine Ratio 23.9 (10-20) Calcium Level 8.1 mg/dl (8.5-10.1) Last 24 Hours Test 07/10/17 05:29 White Blood Count 14.71 K/uL Red Blood Count 4.37 M/uL Hemoglobin 12.6 g/dL Hematocrit 37.3 % Mean Corpuscular Volume 85.4 fL Mean Corpuscular Hemoglobin 28.8 pg Mean Corpuscular Hemoglobin Concent 33.8 g/dl Platelet Count 253 K/uL Mean Platelet Volume 10.4 fL Neutrophils (%) (Auto) 89.4 % Lymphocytes (%) (Auto) 4.7 % Monocytes (%) (Auto) 5.6 % Eosinophils (%) (Auto) 0.0 % Basophils (%) (Auto) 0.0 % Neutrophils # (Auto) 13.16 K/uL Lymphocytes # (Auto) 0.69 K/uL Monocytes # (Auto) 0.82 K/uL Eosinophils # (Auto) 0.00 K/uL Basophils # (Auto) 0.00 K/uL RDW Standard Deviation 41.5 fL RDW Coefficient of Variation 13.3 % Immature Granulocyte % (Auto) 0.3 % Immature Granulocyte # (Auto) 0.04 K/uL Sodium Level 140 mmol/L Potassium Level 3.5 mmol/L Chloride Level 106 mmol/L Carbon Dioxide Level 28 mmol/L Anion Gap 7.0 mmol/L Blood Urea Nitrogen 19 mg/dl Creatinine 0.80 mg/dl Est Creatinine Clear Calc Drug Dose 83.6 ml/min Estimated GFR () 90.9 Estimated GFR (Non- 78.5 BUN/Creatinine Ratio 23.9 Random Glucose 139 mg/dl Calcium Level 8.1 mg/dl Assessment & Plan 61-year-old female with lumbar spinal stenosis who is status post decompression and fusion of L5-S1 by Dr. Brennan yesterday. Patient reports that her pain is controlled. She is tolerating p.o. Drain is in place. 1. Postoperative state-lumbar spinal stenosis status post decompression and fusion of L5-S1 by Dr. Brennan. Doing well postoperatively. Continue pain control, wound care, PT/OT per orthopedics. Monitor H&H for postoperative anemia. Continue to encourage incentive spirometry. 2. Hypertension-controlled, continue home medications including Maxzide, losartan, diltiazem 3. Hypothyroidism-continue levothyroxine 4. NEVAEH-continue CPAP at night. 5. Hyperlipidemia-continue Lipitor Anxiety-continue Celexa per home regimen DVT prophylaxis-SCDs per orthopedics Full code Disposition-plan for home after medically stable and cleared by orthopedics. Thank you for this consultation. We will follow the patient with you during their hospital stay. You can reach a member of the [facility] Hospitalist Team 24/09 via pager @ . Sonja Resendez DO [facility] Current Inpatient Medications: Current Inpatient Medications Medications (Trade) Dose Ordered Sig/Darian Route Start Time Stop Time Status Last Admin Dose Admin Promethazine HCl 12.5 mg/Sodium Chloride 50.5 ml @ 202 mls/hr Q6H PRN IV 07/09/17 11:45 08/08/17 11:44 Ondansetron HCl (Zofran Inj) 4 mg Q6H PRN IV 07/09/17 11:45 08/08/17 11:44 07/09/17 19:33 4 MG Metoclopramide HCl (Reglan Inj) 10 mg Q6H PRN IV 07/09/17 11:45 08/08/17 11:44 Lorazepam (Ativan Tab) 0.5 mg Q8H PRN PO 07/09/17 11:45 08/08/17 11:44 Lorazepam 0.5 mg/ Syringe 1 ml @ 1 mls/min Q8H PRN IV 07/09/17 11:45 08/08/17 11:44 Pneumococcal Polysaccharide Vaccine 1 ea PRN PRN N/A 07/09/17 11:45 08/08/17 11:44 Influenza Virus Vacc Triv Types A&B 1 ea PRN PRN N/A 07/09/17 11:45 08/08/17 11:44 Polyethylene (Miralax Powder Packet) 17 gm Q6 PO 07/11/17 06:00 08/10/17 05:59 Bisacodyl (Dulcolax Supp) 10 mg DAILY PRN [place] 07/09/17 11:45 08/08/17 11:44 Magnesium Hydroxide (Milk Of Magnesia Susp) 30 ml DAILY PRN PO 07/09/17 11:45 08/08/17 11:44 Hydromorphone HCl (Dilaudid Inj) 0.5-1mg prn moder... Q3H PRN IV 07/10/17 06:00 07/24/17 05:59 07/10/17 07:46 1 MG Oxycodone HCl (Roxicodone Immediate Rel Tab) 5-10mg prn moderate to sev... Q4H PRN PO 07/10/17 06:00 07/24/17 05:59 07/10/17 10:20 10 MG Acetaminophen (Tylenol Tab) 1,000 mg Q8H PRN PO 07/09/17 11:45 08/08/17 11:44 Acetaminophen 100 ml @ 400 mls/hr Q8H PRN IV 07/09/17 11:45 08/08/17 11:44 Naloxone HCl (Narcan Inj) 0.1 mg Q5M PRN IV 07/10/17 06:00 08/09/17 05:59 Senna/Docusate Sodium (Senokot S Tab) 2 tab HS PO 07/09/17 21:00 08/08/17 20:59 07/10/17 20:48 2 TAB Sodium Biphosphate/ Sodium Phosphate (Fleet Enema) 132 ml ONE PRN [place] 07/09/17 11:45 08/08/17 11:44 Hydroxyzine HCl (Vistaril Tab) 25 mg Q8H PRN PO 07/09/17 11:45 08/08/17 11:44 Al Hydroxide/Mg Hydroxide (Maalox Susp) 30 ml Q6H PRN PO 07/09/17 11:45 08/08/17 11:44 Famotidine (Pepcid Tab) 20 mg Q12 PRN PO 07/09/17 11:45 08/08/17 11:44 Diphenhydramine HCl (Benadryl Cap) 25 mg Q6H PRN PO 07/09/17 11:45 08/08/17 11:44 Atorvastatin Calcium (Lipitor Tab) 20 mg HS PO 07/09/17 21:00 08/08/17 20:59 07/10/17 20:48 20 MG Citalopram Hydrobromide (celeXA TAB) 20 mg QAM PO 07/10/17 09:00 08/09/17 08:59 07/10/17 09:19 20 MG Diltiazem HCl (TIAzac CAP) 240 mg QAM PO 07/10/17 09:00 08/09/17 08:59 07/10/17 09:20 240 MG Levothyroxine Sodium (Synthroid Tab) 75 mcg DAILYBB PO 07/10/17 06:00 08/09/17 05:59 07/10/17 05:20 75 MCG Losartan Potassium (coZAAR TAB) 100 mg QAM PO 07/10/17 09:00 08/09/17 08:59 07/10/17 09:19 100 MG Pantoprazole Sodium (Protonix Tab) 40 mg QPM PO 07/09/17 21:00 08/08/17 20:59 07/10/17 20:48 40 MG Potassium Chloride (Klor-Con Tab) 20 meq DAILY PO 07/10/17 09:00 08/09/17 08:59 07/10/17 09:21 20 MEQ Triamterene/HCTZ (Maxzide 37.5/25 Tab) 1 tab QAM PO 07/10/17 09:00 08/09/17 08:59 07/10/17 09:20 1 TAB Ketorolac Tromethamine (Toradol Inj) 30 mg Q6H PRN IV 07/10/17 10:00 07/15/17 09:59 07/10/17 19:00 30 MG
[2017-07-10 23:27] VITALS: BP 133/83; PULSE 84; TEMP 36.8; O2SAT 92
[2017-07-11] MEDS: KETOROLAC TROMETHAMINE 30 MG/ML VIAL IV PRN ×2 (03:47→15:06)
[2017-07-11] MEDS: LEVOTHYROXINE 75 MCG TAB PO SCH (06:05)
[2017-07-11] MEDS: POLYETHYLENE (MIRALAX) 17 GM PACK PO SCH ×3 (06:05→17:15)
[2017-07-11 07:08] VITALS: BP 154/83; PULSE 65; TEMP 36.9; O2SAT 92
[2017-07-11] MEDS: HYDROmorphone INJ 0.5 MG/0.5 ML SYR IV PRN (07:15)
[2017-07-11 08:17] VITALS: O2SAT 92
[2017-07-11] MEDS: CITALOPRAM 20 MG TAB PO SCH (08:50)
[2017-07-11] MEDS: POTASSIUM CHLORIDE 20 MEQ TABCR PO SCH (08:50)
[2017-07-11] MEDS: LOSARTAN POTASSIUM 50 MG TAB PO SCH (08:50)
[2017-07-11] MEDS: TRIAMTERENE/HCTZ 37.5/25MG TAB PO SCH (08:51)
[2017-07-11] MEDS: DILTIAZEM HCL 120 MG EXT REL CAP PO SCH (08:51)
--- NOTE | 2017-07-11 08:54 | Progress Note ---
Progress Note Date of Service July 11, 2017. Progress Note Back pain is controlled but still troublesome and limiting in nature. Leg symptoms improved. Vital signs stable. On exam she is good strength testing ambulating the halls nicely with a walker. Assessment status post lumbar decompression fusion per plan at this time anticipate discharge home tomorrow.
[2017-07-11] MEDS: OXYCODONE HCL IR 5 MG TAB (IMMEDIATE RELEASE) PO PRN ×2 (12:03→21:24)
[2017-07-11 15:51] VITALS: BP 119/79; PULSE 70; TEMP 36.7; O2SAT 93
[2017-07-11] MEDS: DOCUSATE SODIUM/SENNA 50/8.6MG TAB PO SCH (21:00)
[2017-07-11] MEDS: PANTOprazole SOD 40 MG TAB PO SCH (21:24)
[2017-07-11] MEDS: ATORVASTATIN 20 MG TAB PO SCH (21:24)
[2017-07-11] MEDS ORDERED: NURSING DECISION MEDICATION ORDER SCH (22:15)
[2017-07-11 23:00] VITALS: BP 115/78; PULSE 81; TEMP 36.7; O2SAT 92
[2017-07-12] MEDS: POLYETHYLENE (MIRALAX) 17 GM PACK PO SCH
--- NOTE | 2017-07-12 05:36 | Progress Note ---
Medicine Progress Note Date & Time of Visit: July 11, 2017 at 18:07. Subjective 61-year-old female with lumbar spinal stenosis who is status post decompression and fusion of L5-S1 by Dr. Brennan yesterday. Patient reports that her pain is controlled. She is tolerating p.o. Drain is in place. No changes. She is ambulating around the room. Objective Last 8 Hrs Date Time Temp Pulse Resp B/P (MAP) Pulse Ox O2 Delivery O2 Flow Rate FiO2 07/11/17 15:51 36.7 70 16 119/79 (92) 93 Room Air Physical Exam: GEN: WNWD, in no acute distress, alert and appropriate HEENT: NC/AT, PERRL, normal sclerae, MMM CARDIO: reg rate, S1/2 heard without m/g/r LUNGS: CTA bilaterally, no crackles, rales or wheezes, good diaphragmatic excursion ABD: soft, non-tender, non-distended, no rebound or guarding, +BS EXTREMITY: RP and DP palpable 2+ bilat, no LE swelling or edema, extremities are warm and well-perfused NEURO: CN 2-12 grossly intact MUSC: Moves all extremities with ease, no gross focal deficits. Back: Incision site is covered with dressing that is clean dry and intact, BELA drain draining blood-tinged serous fluid SKIN: warm and dry Assessment & Plan 61-year-old female with lumbar spinal stenosis who is status post decompression and fusion of L5-S1 by Dr. Brennan yesterday. Patient reports that her pain is controlled. She is tolerating p.o. Drain is in place. No changes. She is ambulating around the room. 1. Postoperative state, POD 2-lumbar spinal stenosis status post decompression and fusion of L5-S1 by Dr. Brennan. Doing well postoperatively. Continue pain control, wound care, PT/OT per orthopedics. Monitor H&H for postoperative anemia. Continue to encourage incentive spirometry. 2. Hypertension-controlled, continue home medications including Maxzide, losartan, diltiazem 3. Hypothyroidism-continue levothyroxine 4. NEVAEH-continue CPAP at night. 5. Hyperlipidemia-continue Lipitor Anxiety-continue Celexa per home regimen DVT prophylaxis-SCDs per orthopedics Full code Disposition-plan for home after medically stable and cleared by orthopedics. Thank you for this consultation. We will follow the patient with you during their hospital stay. You can reach a member of the [facility] Hospitalist Team 24/09 via pager @ . Sonja Resendez, [facility] Hospitalist Current Inpatient Medications: Current Inpatient Medications Medications (Trade) Dose Ordered Sig/Darian Route Start Time Stop Time Status Last Admin Dose Admin Promethazine HCl 12.5 mg/Sodium Chloride 50.5 ml @ 202 mls/hr Q6H PRN IV 07/09/17 11:45 08/08/17 11:44 Ondansetron HCl (Zofran Inj) 4 mg Q6H PRN IV 07/09/17 11:45 08/08/17 11:44 07/09/17 19:33 4 MG Metoclopramide HCl (Reglan Inj) 10 mg Q6H PRN IV 07/09/17 11:45 08/08/17 11:44 Lorazepam (Ativan Tab) 0.5 mg Q8H PRN PO 07/09/17 11:45 08/08/17 11:44 Lorazepam 0.5 mg/ Syringe 1 ml @ 1 mls/min Q8H PRN IV 07/09/17 11:45 08/08/17 11:44 Pneumococcal Polysaccharide Vaccine 1 ea PRN PRN N/A 07/09/17 11:45 08/08/17 11:44 Influenza Virus Vacc Triv Types A&B 1 ea PRN PRN N/A 07/09/17 11:45 08/08/17 11:44 Polyethylene (Miralax Powder Packet) 17 gm Q6 PO 07/11/17 06:00 08/10/17 05:59 07/11/17 17:15 17 GM Bisacodyl (Dulcolax Supp) 10 mg DAILY PRN [place] 07/09/17 11:45 08/08/17 11:44 Magnesium Hydroxide (Milk Of Magnesia Susp) 30 ml DAILY PRN PO 07/09/17 11:45 08/08/17 11:44 Hydromorphone HCl (Dilaudid Inj) 0.5-1mg prn moder... Q3H PRN IV 07/10/17 06:00 07/24/17 05:59 07/11/17 07:15 0.5 MG Oxycodone HCl (Roxicodone Immediate Rel Tab) 5-10mg prn moderate to sev... Q4H PRN PO 07/10/17 06:00 07/24/17 05:59 07/11/17 12:03 10 MG Acetaminophen (Tylenol Tab) 1,000 mg Q8H PRN PO 07/09/17 11:45 08/08/17 11:44 Acetaminophen 100 ml @ 400 mls/hr Q8H PRN IV 07/09/17 11:45 08/08/17 11:44 Naloxone HCl (Narcan Inj) 0.1 mg Q5M PRN IV 07/10/17 06:00 08/09/17 05:59 Senna/Docusate Sodium (Senokot S Tab) 2 tab HS PO 07/09/17 21:00 08/08/17 20:59 07/10/17 20:48 2 TAB Sodium Biphosphate/ Sodium Phosphate (Fleet Enema) 132 ml ONE PRN [place] 07/09/17 11:45 08/08/17 11:44 Hydroxyzine HCl (Vistaril Tab) 25 mg Q8H PRN PO 07/09/17 11:45 08/08/17 11:44 Al Hydroxide/Mg Hydroxide (Maalox Susp) 30 ml Q6H PRN PO 07/09/17 11:45 08/08/17 11:44 Famotidine (Pepcid Tab) 20 mg Q12 PRN PO 07/09/17 11:45 08/08/17 11:44 Diphenhydramine HCl (Benadryl Cap) 25 mg Q6H PRN PO 07/09/17 11:45 08/08/17 11:44 Atorvastatin Calcium (Lipitor Tab) 20 mg HS PO 07/09/17 21:00 08/08/17 20:59 07/10/17 20:48 20 MG Citalopram Hydrobromide (celeXA TAB) 20 mg QAM PO 07/10/17 09:00 08/09/17 08:59 07/11/17 08:50 20 MG Diltiazem HCl (TIAzac CAP) 240 mg QAM PO 07/10/17 09:00 08/09/17 08:59 07/11/17 08:51 240 MG Levothyroxine Sodium (Synthroid Tab) 75 mcg DAILYBB PO 07/10/17 06:00 08/09/17 05:59 07/11/17 06:05 75 MCG Losartan Potassium (coZAAR TAB) 100 mg QAM PO 07/10/17 09:00 08/09/17 08:59 07/11/17 08:50 100 MG Pantoprazole Sodium (Protonix Tab) 40 mg QPM PO 07/09/17 21:00 08/08/17 20:59 07/10/17 20:48 40 MG Potassium Chloride (Klor-Con Tab) 20 meq DAILY PO 07/10/17 09:00 08/09/17 08:59 07/11/17 08:50 20 MEQ Triamterene/HCTZ (Maxzide 37.5/25 Tab) 1 tab QAM PO 07/10/17 09:00 08/09/17 08:59 07/11/17 08:51 1 TAB Ketorolac Tromethamine (Toradol Inj) 30 mg Q6H PRN IV 07/10/17 10:00 07/15/17 09:59 07/11/17 15:06 30 MG
[2017-07-12] MEDS ORDERED: NURSING DECISION MEDICATION ORDER SCH (06:00)
[2017-07-12] MEDS: LEVOTHYROXINE 75 MCG TAB PO SCH (06:02)
[2017-07-12] MEDS: OXYCODONE HCL IR 5 MG TAB (IMMEDIATE RELEASE) PO PRN ×2 (06:16→10:16)
[2017-07-12 07:16] VITALS: BP 138/85; PULSE 73; TEMP 37; O2SAT 90
[2017-07-12] MEDS: KETOROLAC TROMETHAMINE 30 MG/ML VIAL IV PRN (08:34)
[2017-07-12] MEDS: TRIAMTERENE/HCTZ 37.5/25MG TAB PO SCH (08:34)
[2017-07-12] MEDS: LOSARTAN POTASSIUM 50 MG TAB PO SCH (08:35)
[2017-07-12] MEDS: CITALOPRAM 20 MG TAB PO SCH (08:35)
[2017-07-12] MEDS: POTASSIUM CHLORIDE 20 MEQ TABCR PO SCH (08:35)
[2017-07-12] MEDS: DILTIAZEM HCL 120 MG EXT REL CAP PO SCH (08:35)
[2017-07-12 09:14] VITALS: BP 138/85; PULSE 73; TEMP 37; O2SAT 90
--- NOTE | 2017-07-12 13:28 | Discharge Summary ---
Orthopedic Discharge Summary Admission Date/Reason July 09, 2017 at 09:00 Lumbar Spinal Stenosis L5-S1. Discharge Date/Disposition July 12, 2017 Home Diagnosis Principal Diagnosis: Lumbar spinal stenosis Admission Physical Exam As per Admitting History & Physical. Hospital Course Patient underwent lumbar decompression and fusion tolerated as well as taken to the orthopedic floor postoperatively. Postop day #1 she was up in ambulatory leg pain improved. She progressed the postop day #2 and subsequently discharged home on postop day #3. Discharge orders and instructions can be found on the chart for further review. Discharge Instructions Please refer to the electronic Patient Visit Report (Discharge Instructions) for additional information.
== END 2017-07-12 11:50 | disposition home or self-care (01) | DRG 454 ==
LOC: C.ACU 07:06 → C.3E 09:00 → ENRESERV 12:52
PROVIDERS: ADMIT Orthopaedic Surgery Orthopaedic Surgery of the Spine; ATTEND Orthopaedic Surgery Orthopaedic Surgery of the Spine
PROC: 0SG3071 Fusion of Lumbosacral Joint with Autologous Tissue Substitute, Posterior Approach, Posterior Column, Open Approach (ICD-10-PCS; principal; 2017-07-09 09:35)
PROC: 0SG30AJ Fusion of Lumbosacral Joint with Interbody Fusion Device, Posterior Approach, Anterior Column, Open Approach (ICD-10-PCS; principal; 2017-07-09 09:35)
PROC: 0ST40ZZ Resection of Lumbosacral Disc, Open Approach (ICD-10-PCS; principal; 2017-07-09 09:35)
DX: M48.062 Spinal stenosis, lumbar region with neurogenic claudication (principal); Z68.41 Body mass index [BMI] 40.0-44.9, adult; M43.16 Spondylolisthesis, lumbar region; I10 Essential (primary) hypertension; E03.9 Hypothyroidism, unspecified; G47.33 Obstructive sleep apnea (adult) (pediatric); E78.5 Hyperlipidemia, unspecified; F41.9 Anxiety disorder, unspecified; F32.9 Major depressive disorder, single episode, unspecified; K21.9 Gastro-esophageal reflux disease without esophagitis; E66.01 Morbid (severe) obesity due to excess calories; Z91.048 Other nonmedicinal substance allergy status; Z82.49 Family history of ischemic heart disease and other diseases of the circulatory system

== ENCOUNTER 2018-12-22 06:10 | Inpatient (IN) ==
--- NOTE | 2018-11-10 16:24 | PAT Medication Instructions ---
Medication Instructions Date of Service November 10, 2018 Home Medications Fish Oil 1,200 mg PO BID Probiotic 1 cap PO QAM atorvastatin 20 mg PO PM citalopram 20 mg PO QAM diltiazem HCl 240 mg PO QAM latanoprost [Xalatan] 1 drp OPHTHALMIC (EYE) PM levothyroxine 75 mcg PO QAM losartan 100 mg PO QAM meloxicam 15 mg PO QAM [employer] 1 tab PO QAM pantoprazole 40 mg PO QPM potassium chloride 20 meq PO QDL pregabalin [Lyrica] 50 mg PO BID triamterene-hydrochlorothiazid 1 tab PO QAM ASK your surgeon for instructions meloxicam 15 mg PO QAM STOP taking 2 weeks before surgery (or as soon as possible if surgery is within 2 weeks) Fish Oil 1,200 mg PO BID DO NOT take the morning of surgery Probiotic 1 cap PO QAM losartan 100 mg PO QAM Centrum [employer] Women 1 tab PO QAM potassium chloride 20 meq PO QDL triamterene-hydrochlorothiazid 1 tab PO QAM Take morning of surgery With a small sip of water, OTHERWISE NOTHING TO EAT OR DRINK AFTER MIDNIGHT: citalopram 20 mg PO QAM diltiazem HCl 240 mg PO QAM levothyroxine 75 mcg PO QAM pregabalin [Lyrica] 50 mg PO BID Take evening before surgery atorvastatin 20 mg PO PM latanoprost [Xalatan] 1 drp OPHTHALMIC (EYE) PM pantoprazole 40 mg PO QPM pregabalin [Lyrica] 50 mg PO BID Other Notes If you have any questions please call us at [phone] or [phone] or [phone] or [phone]
--- NOTE | 2018-11-11 14:44 | Anesthesiology Consultation ---
Date of Service November 11, 2018 Assessment & Plan (1) Encounter for pre-operative examination: Chart Review Chart Review: Acceptable Risk for Surgery and Patient seen in Pre Admission Testing Consults Requested none Teaching & Discussion Pre-Anesthesia Teaching/Discussion Notes: Instructed NPO after midnight before surgery,except medications with 15 cc of water. Medication instructions provided according to the PAT guidelines. History Surgery Operation Date: 12/22/18 08:30 Proposed Procedures p Left Total Knee Arthroplasty - Harsha Covarrubias MD Height/Weight Height: 5 ft 3 in Weight: 107.8 kg Allergies Allergy/AdvReac Type Severity Reaction Status Date / Time adhesive Allergy Unknown RED SKIN Verified 11/11/18 14:45 (IF BANDAIDS LEFT ON FOR LONG TIME) No Known Drug Allergies Allergy Unknown NONE Verified 11/04/18 13:19 Medications Home Medications Medication Instructions Recorded Confirmed Last Taken Fish Oil 1,200 mg PO BID 11/04/18 11/04/18 Unknown Probiotic 1 cap PO QAM 11/04/18 11/04/18 Unknown atorvastatin 20 mg PO PM 11/04/18 11/04/18 Unknown citalopram 20 mg PO QAM 11/04/18 11/04/18 Unknown diltiazem HCl 240 mg PO QAM 11/04/18 11/04/18 Unknown latanoprost [Xalatan] 1 drp OPHTHALMIC (EYE) PM 11/04/18 11/04/18 Unknown levothyroxine 75 mcg PO QAM 11/04/18 11/04/18 Unknown losartan 100 mg PO QAM 11/04/18 11/04/18 Unknown meloxicam 15 mg PO QAM 11/04/18 11/04/18 Unknown miamejrm-dze-irur-FA-lutein 1 tab PO QAM 11/04/18 11/04/18 Unknown [Centrum Silver Women] pantoprazole 40 mg PO QPM 11/04/18 11/04/18 Unknown potassium chloride 20 meq PO QDL 11/04/18 11/04/18 Unknown pregabalin [Lyrica] 50 mg PO BID 11/04/18 11/04/18 Unknown triamterene-hydrochlorothiazid 1 tab PO QAM 11/04/18 11/04/18 Unknown Past Medical History Medical History Depression GERD (gastroesophageal reflux disease) controlled Glaucoma Hiatal hernia Hyperlipidemia Hypertension Hypothyroidism Morbid obesity Osteoarthritis Sleep apnea CPAP Exercise / Class Metabolic Activity II 4-5 Yardwork/Stairs/Walk up hill Past Surgical History Surgical History Fusion of spine L5-S1; HARDWARE PRESENT History of carpal tunnel release of both wrists History of cholecystectomy History of colonoscopy W/ POLYPECTOMY History of esophagogastroduodenoscopy (EGD) History of tooth extraction Past Anesthesia History No Hx of Anesthesia Complications and No Family Hx of Anesthesia Complications History of PONV No Hx of PONV and Hx of Motion Sickness Social History Smoking Status: Never smoker Do You Dip or Chew Tobacco: No Hx Alcohol Use: Yes alcohol intake frequency: holidays/special occasions only Hx Substance Use: No substance use type: does not use Review of Systems Reflux controlled. Patient denies chest pain, shortness of breath, dyspnea on exertion, cough, wheezing, palpitations. Physical Exam Vital Signs VITALS BP 132/74 P 73 TEMP 98.1 SP02 92%RA RESP 18 PHYSICAL Full neck and c-spine range of motion. Full TMJ range of motion. TMD 3.5 finger breaths Mallampati Score 3 Dentition: intact Lungs: clear throughout to auscultation Cardiac: regular rate and rhythm, I/ systolic murmur Spine: normal Carotid arteries: negative bruit Extremities: no edema Testing Laboratory Results 11/11/18 14:58 11/11/18 14:58 PT 10.9 Seconds (9.0-12.0) 11/11/18 14:58 INR 1.1 (0.9-1.1) 11/11/18 14:58 APTT 25.4 Seconds (21.0-31.0) 11/11/18 14:58 Hemoglobin A1c 5.8 % (4.5-5.6) H 11/11/18 14:58 Urine Color Yellow 11/11/18 14:58 Urine Appearance Clear (Clear) 11/11/18 14:58 Urine pH 5.5 (4.5-7.5) 11/11/18 14:58 Ur Specific [place] 1.019 (1.000-1.030) 11/11/18 14:58 Urine Protein Negative (Negative) 11/11/18 14:58 Urine Glucose (UA) Negative (Negative) 11/11/18 14:58 Urine Ketones Negative (Negative) 11/11/18 14:58 Urine Nitrite Negative (Negative) 11/11/18 14:58 Ur Leukocyte Esterase 2+ (Negative) H 11/11/18 14:58 Urine WBC (Auto) 10-30 /hpf (0-5) H 11/11/18 14:58 Urine RBC (Auto) 0-4 /hpf (0-4) 11/11/18 14:58 U Hyaline Cast (Auto) 1-5 /lpf (0-5) 11/11/18 14:58 U Epithel Cells (Auto) 10-20 /lpf (0-5) H 11/11/18 14:58 Urine Bacteria (Auto) Negative (Negative) 11/11/18 14:58 Blood Type A Positive 11/11/18 14:58 Antibody Screen NEGATIVE 11/11/18 14:58 Electrocardiogram Date: 11/11/18 Findings: + NSR @ (71) Chest X-Ray Date: 11/11/18 Findings: + NAD
[2018-11-11 15:32] LABS: Basophils # (auto) 0.05 K/uL (0-0.2); Basophils % (auto) 0.7 %; Eosinophils # (auto) 0.09 K/uL (0-0.5); Eosinophils % (auto) 1.3 %; Hematocrit (blood only) 42.1 % (37-47); Hemoglobin 14.3 g/dL (12.0-16.0); Immature Granulocytes # (auto) 0.01 K/uL (0.00-0.02); Immature Granulocytes % (auto) 0.1 %; Lymphocytes # (auto) 2.22 K/uL (1.2-3.4); Lymphocytes % (auto) 31.4 %; Mean Corpuscular Hemoglobin 29.5 pg (25-34); Mean Platelet Volume 10.6 fL (7.4-10.4); Monocytes # (auto) 0.65 K/uL (0.11-0.59); Monocytes % (auto) 9.2 %; Neutrophils # (auto) 4.06 K/uL (1.4-6.5); Neutrophils % (auto) 57.3 %; Platelet Count 255 K/uL (130-400); RDW Coefficient of Variation 13.4 % (11.5-14.5); RDW Standard Deviation 42.8 fL (36.4-46.3); Red Blood Count 4.84 M/uL (4.2-5.4); White Blood Count 7.08 K/uL (4.8-10.8)
[2018-11-11 15:37] LABS: Appearance Urine Clear (Clear); Bacteria Urine Automated Negative (Negative); Bilirubin Urine Negative (Negative); Blood Urine Negative (Negative); Color Urine Yellow; Glucose Urine UA Negative (Negative); Ketones Urine Negative (Negative); Leukocyte Esterase Urine 2+ (Negative); Nitrite Urine Negative (Negative); Protein Urine Negative (Negative); RBC Urine Automated 0-4 /hpf (0-4); Specific Gravity Urine 1.019 (1.000-1.030); Urobilinogen Urine Negative (Negative); pH Urine 5.5 (4.5-7.5)
--- NOTE | 2018-11-11 15:39 | XRay Report ---
XR chest Pre-admission PA/Lat CLINICAL HISTORY: pat preoperative evaluation COMPARISON STUDY: No previous studies for comparison. FINDINGS: The bones soft tissues and hemidiaphragms are normal. The cardiomediastinal silhouette is n ormal. The lungs are clear. The pulmonary vasculature is normal. IMPRESSION: Negative chest. The above report was generated using voice recognition software. It may contain grammatical, syntax or spelling errors. Electronically signed by: Evert Vela M.D. 11/11/2018 3:37 PM
[2018-11-11 15:40] LABS: Albumin Level 3.8 gm/dl (3.4-5.0); Creatinine Clr Calc Pharmacy 58.4 ml/min; Est GFR (African American) 59.1; Potassium 3.6 mmol/L (3.5-5.1)
[2018-11-11 15:43] LABS: INR 1.1 (0.9-1.1); Partial Thromboplastin Ratio 0.9; Partial Thromboplastin Time 25.4 Seconds (21.0-31.0); Prothrombin Time 10.9 Seconds (9.0-12.0)
[2018-11-12 05:46] LABS: Estimated Average Glucose 120 mg/dl; Hemoglobin A1C 5.8 % (4.5-5.6)
--- NOTE | 2018-12-21 18:27 | History and Physical Report ---
DATE OF ADMISSION: 12/22/2018 CHIEF COMPLAINT: Chronic left knee pain. HISTORY OF PRESENT ILLNESS: This is a 63-year-old female patient of Dr. Covarrubias'rich complaining of chronic left knee pain, longstanding, now progressively getting worse. The patient has failed conservative treatment including intraarticular injections, tramadol, ibuprofen and home exercise program. The patient has increased pain with weightbearing activities and her pain does interfere with her activities of daily living. The patient has been diagnosed with end-stage osteoarthritis per clinical and radiographic exams. The patient wished to proceed with a left total knee arthroplasty. PAST MEDICAL HISTORY: Hypertension, hypercholesterolemia, sleep apnea with the use of CPAP, hypothyroidism, osteoarthritis, spine problems, acid reflux, hiatal hernia, obesity. SOCIAL HISTORY: Nonsmoker, nondrinker. PAST SURGICAL HISTORY: Back surgery, cholecystectomy, carpal tunnel surgery x2 and oral surgery. FAMILY HISTORY: Noncontributory. REVIEW OF SYSTEMS: Chronic left knee pain and instability. Otherwise, denies any shortness of breath, chest pain, nausea, vomiting or any other joint complaints. MEDICATIONS: 1. Diltiazem 240 mg 1 tablet daily. 2. Losartan 100 mg daily. 3. Triamterene/hydrochlorothiazide 37.5/25 one tablet daily. 4. Levothyroxine 75 mcg daily. 5. Citalopram 20 mg daily. 6. Pantoprazole 40 mg daily. 7. Potassium chloride 20 mEq daily. 8. Fish oil daily. 9. Aspirin 81 mg daily. 10. Calcium 600 plus minerals 600 mg daily. 11. Centrum Silver daily. 12. Metamucil oral powder as needed. 13. Atorvastatin 20 mg daily. 14. Gabapentin 300 mg 1 tablet 3 times daily. 15. Mobic 15 mg daily. 16. Lyrica 50 mg 3 times daily. ALLERGIES: INCLUDE LATEX. PHYSICAL EXAMINATION: GENERAL: Well-developed, well-nourished 63-year-old female, in no acute distress. She is alert and oriented x3 and pleasant. HEENT: Normocephalic, atraumatic. Extraocular motions are intact. Pupils are equal and reactive to light. HEART: Regular rate and rhythm. No murmurs appreciated. LUNGS: Clear. ABDOMEN: Soft, nontender, bowel sounds present. EXTREMITIES: Left knee reveals limited range of motion of 0-125 degrees with an effusion. She has medial joint line tenderness with a varus deformity. She has 5/5 strength with pain. NEUROLOGIC: Neurovascularly, she is intact in her left lower extremity. DIAGNOSES: Left knee end-stage osteoarthritis, hypertension, hypercholesterolemia, sleep apnea with the use of CPAP, hypothyroidism, osteoarthritis, spine problems, acid reflux, hiatal hernia, obesity. PLAN: The patient was advised of her diagnosis. Indications, risks, benefits, postop course have all been reviewed. The patient wished to proceed with a left total knee arthroplasty. Necessary consent forms, preoperative testing and clearances will be obtained.
[~2018-12-22 06:10] MED LIST changes: -ATOR-22 PO; +CEFAZOLIN 2000MG 2,000 MG/15 ML SYR IV SCH; -CEFAZOLIN 2000MG IV PUSH 15 ML IV SCH; -CITA20TA9 PO; -DILT-115 PO; +FAMOTIDINE 20 MG TAB PO SCH; +GABAPENTIN 300 MG CAP PO SCH; -GABAPENTIN 600 MG PO SCH; -HYDR-3419 PO; -LACTATED RINGER'S 1000ML 1,000 ML IV SCH; -LEVO75TA5 PO; -LOSA1TAB38 PO; +LR 500ML BOLUS, THEN 15ML/HR IV SCH; +METOCLOPRAMIDE HCL 10 MG TABLET PO SCH; -MULT-506 PO; -OMEG10007 PO; -PANT40TA PO; -POTA-639 PO; +ROPIVACAINE 0.5% HCL/PF 150 MG, BUPIVACAINE 0.5% MPF 30 ML, EPINEPHrine 30MG/30ML (OR U... INFIL SCH; +TRANEXAMIC ACID 1,000 MG **IV Pre-op IV SCH; -TRIATAB3 PO; +dexAMETHasone 4 MG TAB PO SCH
[2018-12-22] MEDS ORDERED: TRANEXAMIC ACID 1,000 MG **IV Intra-op IV SCH (06:30)
[2018-12-22] MEDS ORDERED: BUPIVACAINE 0.25% 30 ML VIAL ONE (06:33)
[2018-12-22] MEDS ORDERED: BUPIVACAINE 0.5 % 5 MG/1 ML PF 10ML VIAL ONE (06:33)
--- NOTE | 2018-12-22 06:52 | History & Physical Bridge Note ---
Date of Service December 22, 2018 History & Physical Bridge Note I have examined the patient, reviewed the History & Physical and in the interval since the performance of the History & Physical I have noted the following changes of clinical significance: no changes noted
[2018-12-22] MEDS ORDERED: MIDAZOLAM HCL 1 MG/ML 2ML VIAL ONE (07:04)
[2018-12-22] MEDS ORDERED: KETAMINE HCL INJ 50 MG/ML 10 ML VIAL ONE (07:05)
[2018-12-22] MEDS ORDERED: LIDOCAINE HCL 2% 2 ML VIAL/AMP(20MG/ML) INFIL ONE (07:11)
[2018-12-22] MEDS ORDERED: ONDANSETRON INJ 2 MG/ML 2 ML VIAL ONE (07:11)
[2018-12-22] MEDS ORDERED: PROPOFOL IV EMULSION 10 MG/ML 20 ML VIAL IV ONE ×5 (07:11→10:04)
[2018-12-22] MEDS ORDERED: GLYCOPYRROLATE 0.2 MG/ML VIAL ONE (07:11)
[2018-12-22] MEDS ORDERED: DEXAMETHASONE SOD INJ 4 MG/ML VIAL ONE (07:11)
[2018-12-22] MEDS ORDERED: ORTHO JOINT ANESTHETIC ONE (07:22)
[2018-12-22] MEDS ORDERED: BACITRACIN INJ 50,000 UNIT VIAL ONE (07:22)
[2018-12-22] MEDS ORDERED: ONDANSETRON INJ 2 MG/ML 2 ML VIAL IV PRN ×2 (08:06→11:18)
[2018-12-22] MEDS ORDERED: fentaNYL citrate 100 MCG/2 ML VIAL IV PRN (08:06)
[2018-12-22] MEDS ORDERED: ATROPINE SULFATE 0.1 MG/ML 10ML SYR IV PRN (08:06)
[2018-12-22] MEDS ORDERED: ePHEDrine sulfate 50 MG/ML AMP IV PRN (08:06)
--- NOTE | 2018-12-22 09:59 | Post Operative Brief Note ---
Immediate Post Op Note v1 Date of Surgery December 22, 2018 Pre & Post Diagnosis Operation Date: 12/22/18 08:40 Pre-Op Diagnosis: Left Knee End-Stage Osteoarthritis Post-Op Diagnosis: Left Knee End-Stage Osteoarthritis I identified the patient and participated in the time-out.: Yes Procedure Operation Date: 12/22/18 08:40 Actual Procedures p Left Total Knee Arthroplasty(Left) - Harsha Covarrubias MD Surgeon Harsha Covarrubias MD [employer] Department Manager [place]en ANDINO Estimated Blood Loss 5 Findings Consistent with Post-Op Diagnosis Specimens Bone cuts Drains Hemovac Drain Anesthesia Type MAC Spinal Regional Complications none Disposition Accompanied Patient To Recovery: No Disposition: Recovery Room Overlapping Procedure I was present for: the critical portions of procedure.
[2018-12-22] MEDS ORDERED: MAGNESIUM HYDROXIDE SUSP 30 ML UDC PO PRN (11:18)
[2018-12-22] MEDS ORDERED: NALOXONE HCL 0.4 MG/1 ML VIAL/CARP IV PRN (11:18)
[2018-12-22] MEDS ORDERED: HYDROmorphone INJ 0.5 MG/0.5 ML SYR IV PRN (11:18)
[2018-12-22] MEDS ORDERED: bisacodyL 10 MG SUPP PR PRN (11:18)
--- NOTE | 2018-12-22 11:39 | Anesthesiology Progress Note ---
Date of Service December 22, 2018 Anesthesia Post Procedure Vital Signs Vital Signs: Temp Pulse Pulse Resp BP Pulse Ox 12/22/18 11:10 36.6 C 67 16 124/72 98 12/22/18 11:00 36.6 C 71 16 127/76 98 12/22/18 10:50 67 16 119/70 98 12/22/18 10:40 77 16 116/70 98 12/22/18 10:33 36.6 C 82 16 100/71 94 12/22/18 06:20 36.6 C 70 20 166/87 H 97 Transfer of Care Handoff Completed per policy Notes Mental Status: alert / awake / arousable and participated in evaluation Nausea / Vomiting: adequately controlled Pain: adequately controlled Airway Patency, RR, SpO2: stable & adequate BP & HR: stable & adequate Hydration State: stable & adequate Neuraxial Anesthesia: was administered and sensory block is resolving Anesthetic Complications: no major complications apparent and Pt Satisfied with anesthetic care
--- NOTE | 2018-12-22 11:41 | XRay Report ---
XR knee LT 2V routine CLINICAL HISTORY: Surgical Post Op COMPARISON: None. DISCUSSION: Anatomic alignment posttotal left knee arthroplasty. Could contact between prosthetic and underlying bone. Postoperative soft tissue surgical changes present. IMPRESSION: Anatomic alignment posttotal left knee arthroplasty. The above report was generated using voice recognition software. It may contain grammatical, syntax or spelling errors. Electronically signed by: Evert Vela M.D. 12/22/2018 11:40 AM
[2018-12-22] MEDS: SODIUM CHLORIDE 0.9% 1000ML 1,000 ML IV SCH ×2 (11:57→23:19)
[2018-12-22] MEDS: POTASSIUM CHLORIDE 20 MEQ TABCR PO SCH (12:05)
--- NOTE | 2018-12-22 12:11 | Consultation ---
Date of Consultation December 22, 2018 Assessment & Plan (1) Primary localized osteoarthritis of left knee: (2) Status post total knee replacement, left: S/P L TKA by Dr. Covarrubias, POD #0 EBL 5 ml tolerated procedure well pain/wound management per ortho activity and therapy as directed by ortho Xarelto and ASA bid for VTE ppx per ortho encourage incentive spirometry monitor H&H (3) Hypertension: Blood pressure controlled postoperatively Continue losartan and diltiazem Hold triamterene/HCTZ until volume status reevaluated in a.m. Patient also on potassium supplement Monitor BMP (4) Pre-diabetes: Preoperative A1c 5.8 Patient received preop Decadron Monitor blood glucose initial 24hr for hyperglycemic response given steroid (5) Hyperlipidemia: continue statin (6) Hypothyroidism: Continue levothyroxine (7) Sleep apnea: CPAP at HS (8) Glaucoma: Continue latanoprost (9) Depression: Continue citalopram Mood stable (10) GERD (gastroesophageal reflux disease): continue PPI (11) Morbid obesity: BMI 42.9 encourage lifestyle modifications (12) DVT prophylaxis: Xarelto, ASA Disposition: Per primary Follow up: PCP Sonali Martins PA-C upon discharge Patient was seen and examined in collaboration with Dr. Gallegos, please see addendum Starting 12/23/18 pt will be under the care of Dr. Modi Thank you for this consultation. We will follow the patient with you during their hospital stay. You can reach a [facility] of [facility] via pager @ [phone]. Supervising Physician Co-Signing Physician Notes HISTORY: Record reviewed. Patient interviewed and examined. Care coordinated with Neda Burkett PA-C. Please refer to her documentation for complete history. Briefly, 63-year-old female with history of hypertension, sleep apnea, prediabetes, and other problems as noted. Left total knee arthroplasty performed earlier today by Dr. Covarrubias. Doing well postoperatively. No chest pain, cough, shortness of breath, nausea, vomiting. EXAM: General- no distress Lungs- clear to auscultation; no respiratory distress Cardiovascular- RRR; no gallop; no JVD; no pretibial edema Abdomen- + bowel sounds, soft, nontender Extremities- no cyanosis; no calf tenderness; SCDs applied Neuro- alert, oriented Skin- warm & dry DATA: Preop labs were done on 11/11/2018. Hemoglobin 14.3, white count 7080, platelet count 255,000. PT, INR, PTT were normal. Normal electrolytes, BUN 20, creatinine 1.13, glucose 135. Hemoglobin A1c 5.8. UA showed 2+ leukocyte esterase, 10-30 WBCs, negative bacteria, many epithelial cells. Other lab studies as noted. Chest x-ray was unremarkable. EKG performed on 11/11/2018 reviewed and demonstrated normal sinus rhythm at 70 / minute, no acute ST or T wave abnormalities. ASSESSMENT AND PLAN: Status post total knee arthroplasty. Doing well postoperatively. History of hypertension. Continue antihypertensive medications. History of sleep apnea. Continue CPAP. History of prediabetes. Received dexamethasone perioperatively. Monitor blood sugars and cover elevated blood sugars as necessary with insulin. Please refer to THU Burkett's documentation for discussion of other issues. Thank you for this consultation. We will follow the patient with you during their hospital stay. My cell # is [phone]. You can reach a member of the [facility] Team 24/09 via pager @ [phone]. History of Present Illness Requesting Physician: Dr. Covarrubias Reason for Consultation: Post op medical management Attending Physician: Harsha Covarrubias MD History of Present Illness This is a 63-year-old female who has significant past medical history of HTN, HLD, hypothyroidism, prediabetes mellitus, NEVAEH on CPAP, RLS, depression, GERD, glaucoma who presents to [facility] for elective left total knee arthroplasty by Dr. Covarrubias. Daughter and has been is at bedside. She tolerated procedure well. Continues to have numbness to left lower extremity secondary to spinal anesthesia. Currently denies any pain, fever, chills, sweats, lightheadedness, dizziness, chest pain, shortness of breath, nausea, vomiting, abdominal pain. Prior to procedure she denies any dysuria, increased urgency or frequency with urination, hematuria, diarrhea or constipation. Is tolerating liquids currently. Offers no acute complaints or concerns. Has been using incentive spirometry postoperatively. [facility] records reviewed and hx obtained from patient. Allergies Allergy/AdvReac Type Severity Reaction Status Date / Time adhesive Allergy Mild RED SKIN Verified 12/22/18 06:33 (IF BANDAIDS LEFT ON FOR LONG TIME) No Known Drug Allergies Allergy Unknown NONE Verified 12/22/18 06:33 Home Medications Home Medications Medication Instructions Recorded Confirmed Type Fish Oil 1,200 mg PO BID 11/04/18 12/22/18 History Probiotic 1 cap PO QAM 11/04/18 12/22/18 History atorvastatin 20 mg PO PM 11/04/18 12/22/18 History citalopram 20 mg PO QAM 11/04/18 12/22/18 History diltiazem HCl 240 mg PO QAM 11/04/18 12/22/18 History latanoprost [Xalatan] 1 drp OPHTHALMIC (EYE) PM 11/04/18 12/22/18 History levothyroxine 75 mcg PO QAM 11/04/18 12/22/18 History losartan 100 mg PO QAM 11/04/18 12/22/18 History meloxicam 15 mg PO QAM 11/04/18 12/22/18 History grpdbggz-fbr-wjzq-FA-lutein 1 tab PO QAM 11/04/18 12/22/18 History [Centrum Silver Women] pantoprazole 40 mg PO QPM 11/04/18 12/22/18 History potassium chloride 20 meq PO QDL 11/04/18 12/22/18 History pregabalin [Lyrica] 50 mg PO BID 11/04/18 12/22/18 History triamterene-hydrochlorothiazid 1 tab PO QAM 11/04/18 12/22/18 History Patient History Medical History Pre-diabetes a1c 5.8 11/2018 Morbid obesity Sleep apnea CPAP Hyperlipidemia Hypertension Depression Glaucoma Hypothyroidism GERD (gastroesophageal reflux disease) controlled Hiatal hernia Osteoarthritis Surgical History History of colonoscopy W/ POLYPECTOMY History of esophagogastroduodenoscopy (EGD) Fusion of spine L5-S1; HARDWARE PRESENT History of carpal tunnel release of both wrists History of cholecystectomy History of tooth extraction Family History Father AAA (abdominal aortic aneurysm) Aunt AAA (abdominal aortic aneurysm) Sister AAA (abdominal aortic aneurysm) Mother Breast cancer Sister Breast cancer Fibromyalgia Social History Preferred Language: Turkish Communication Ability: Effective Experimental Welder Required: No Beliefs That Will Affect Care: None Current Living Situation: Spouse Other Information That Helps Us Care for You: No Feels Safe at Home: Yes Safety Concerns: Feels Safe At This Time Smoking Status: Never smoker Do You Dip or Chew Tobacco: No ; Second Hand Exposure: No ; Hx Alcohol Use: Yes Hx Substance Use: No Review of Systems Review of Systems: All systems reviewed & are unremarkable except as noted in HPI & below Physical Exam Physical Exam: Constitutional: WD/WN, female, morbid obese, vitals as above, NAD, sitting up in bed, pleasant, conversing easily Head: Normocephalic, Atraumatic Eyes: PERRL, conjunctivae normal, anicteric sclerae ENMT: external ear and nose normal, oropharynx normal Neck: trachea midline, no thyromegaly normal visual inspection Respiratory: normal respiratory effort, lungs clear to auscultation, no wheeze, rales, rhonchi. Normal insp/exp effort, no accessory muscle use. On O2 via NC. Cardiovascular: RRR, no murmur, no edema Vessels: no JVD or carotid bruit Chest: normal inspection of chest Abdomen: normal bowel sounds, soft, nontender, no hepatosplenomegaly Musculoskeletal: no cyanosis or clubbing, left TKA dressing CDI, SCD/teds intact Skin: no rashes, warm and dry normal turgor Neurologic: PERRL, EOMI, accommodation nl, no face palsy, no dysarthria CN's II-XI intact bilaterally and moves all extremities Psychiatric: A+Ox3, euthymic affect Lymphatic: no cervical or axillary lymphadenopathy : deferred Results & Data Vital Signs (Past 12 Hours) Vital Signs Temp Pulse Pulse Resp BP Pulse Ox 12/22/18 11:50 68 15 128/82 94 12/22/18 11:15 36.6 C 66 16 128/80 96 12/22/18 11:10 36.6 C 67 16 124/72 98 12/22/18 11:00 36.6 C 71 16 127/76 98 12/22/18 10:50 67 16 119/70 98 12/22/18 10:40 77 16 116/70 98 12/22/18 10:33 36.6 C 82 16 100/71 94 10/21/19 06:20 36.6 C 70 20 166/87 H 97 Laboratory Results Preoperative lab results: WBC 7.88, H&H 14.3 and 42.1, platelet 255 BMP sodium 141, potassium 3.6, chloride 105, CO2 30, BUN 20, creatinine 1.13, glucose 135 A1c 5.8 Diagnostic Findings Knee Xray: IMPRESSION: Anatomic alignment posttotal left knee arthroplasty. CXR: IMPRESSION: Negative chest. Medications Administered Sodium Chloride (Nss 1000ml) 1,000 mls @ 100 mls/hr IV .Q10H TYLER Stop: 12/23/18 06:00 Last Admin: 12/22/18 11:57 Dose: 100 mls/hr Documented by: [id number] Potassium Chloride (Klor-Con M20) 20 meq PO QDL TYLER Stop: 01/21/19 11:29 Last Admin: 12/22/18 12:05 Dose: 20 meq Documented by: [id number] Discontinued Medications Acetaminophen (Tylenol) 1,000 mg PO PREOP TYLER Stop: 12/22/18 18:00 Last Admin: 12/22/18 07:10 Dose: 1,000 mg Documented by: [id number] Bacitracin (Bacitracin) Confirm Administered Dose 50,000 units .ROUTE .STK-MED ONE Stop: 12/22/18 07:23 Last Admin: 12/22/18 09:22 Dose: 50,000 units Documented by: [id number] Celecoxib (Celebrex) 200 mg PO PREOP TYLER Stop: 12/22/18 18:00 Last Admin: 12/22/18 07:10 Dose: 200 mg Documented by: [id number] Dexamethasone (Decadron) 8 mg PO PREOP TYLER Stop: 12/22/18 18:00 Last Admin: 12/22/18 07:11 Dose: 8 mg Documented by: [id number] Famotidine (Pepcid) 20 mg PO PREOP TYLER Stop: 12/22/18 18:00 Last Admin: 12/22/18 07:10 Dose: 20 mg Documented by: [id number] Gabapentin (Neurontin) 300 mg PO PREOP TYLER Stop: 12/22/18 18:00 Last Admin: 12/22/18 07:11 Dose: 300 mg Documented by: [id number] Cefazolin Sodium (Ancef 2000mg) 2,000 mg in 15 mls @ 3.75 mls/min IV PREOP TYLER; Protocol Stop: 12/22/18 18:00 Last Admin: 12/22/18 08:32 Dose: 3.75 mls/min Documented by: [id number] Tranexamic Acid 1,000 mg/ (Sodium Chloride) 110 mls @ 660 mls/hr IV TODAY@0600 [facility] Stop: 12/22/18 06:09 Last Infusion: 12/22/18 08:23 Dose: 0 mls/hr Documented by: [id number] Admin: 12/22/18 08:12 Dose: 660 mls/hr Documented by: [id number] Tranexamic Acid 1,000 mg/ (Sodium Chloride) 110 mls @ 660 mls/hr IV 0630 [facility] Stop: 12/22/18 06:39 Last Infusion: 12/22/18 10:19 Dose: 0 mls/hr Documented by: [id number] Admin: 12/22/18 10:03 Dose: 660 mls/hr Documented by: [id number] Ropivacaine 150 mg/Bupivacaine HCl 30 ml/Epinephrine HCl 0.15 mg/Ketorolac Tromethamine 30 mg/Dexamethasone 4 mg/ Ketamine HCl 10 mg/ Clonidine HCl 100 mcg/ Sodium Chloride 93.35 mls @ 0 mls/hr INFIL TODAY@0600 [facility] Stop: 12/22/18 06:01 Last Admin: 12/22/18 10:06 Dose: 93.35 mls/hr Documented by: [id number] Lactated Ringer's (Lr) 1,000 mls @ 15 mls/hr IV .Q24H [facility] Stop: 12/22/18 18:00 Last Infusion: 12/22/18 08:32 Dose: 0 mls/hr Documented by: [id number] Admin: 12/22/18 07:15 Dose: 15 mls/hr Documented by: [id number] Metoclopramide HCl (Reglan) 10 mg PO PREOP TYLER Stop: 12/22/18 18:00 Last Admin: 12/22/18 07:10 Dose: 10 mg Documented by: [id number] Miscellaneous (Ortho Joint Anesthetic) Confirm Administered Dose 1 ea .ROUTE .STK-MED ONE Stop: 12/22/18 07:23 Last Admin: 12/22/18 09:22 Dose: Not Given Documented by: [id number] ECG Rate (beats per minute): 71 Rhythm: normal sinus
[2018-12-22] MEDS: ACETAMINOPHEN 500 MG TAB PO SCH ×2 (13:15→21:18)
[2018-12-22] MEDS: OXYCODONE HCL IR 5 MG TAB (IMMEDIATE RELEASE) PO PRN ×2 (15:28→20:19)
[2018-12-22] MEDS: CEFAZOLIN 2000MG 2,000 MG/15 ML SYR IV SCH ×2 (16:31→23:18)
--- NOTE | 2018-12-22 16:39 | Operative Report ---
Post Operative Report Pre & Post Diagnosis Operation Date: 12/22/18 08:40 Pre-Op Diagnosis: Left Knee End-Stage Osteoarthritis, obesity BMI 42.9 Post-Op Diagnosis: Left Knee End-Stage Osteoarthritis, obesity BMI 42.9 I identified the patient and participated in the time-out.: Yes Procedure Operation Date: 12/22/18 08:40 Actual Procedures p Left Total Knee Arthroplasty(Left) increased difficulty BMI 42.9- Harsha Covarrubias MD Surgeon Harsha Covarrubias MD Cashier Receptionist Austen ANDINO Estimated Blood Loss 5 Findings Consistent with Post-Op Diagnosis Specimens Bone cuts Drains 2 Hemovac Anesthesia Type MAC Spinal Regional Complications none Disposition Accompanied Patient To Recovery: No Disposition: Recovery Room Indications 63-year female with end-stage osteoarthritis her left knee. Failed conservative management. She has a varus knee she is [id number] medial compartment. Description of Procedure Patient taken to the operating room placed supine on the operating table and anesthetized under[] anesthesia. Exam under anesthesia demonstrated significant obesity limited range of motion -10 through 115 degrees no gross instability. A pneumatic tourniquet was placed about the obese thigh of the left lower extremity. The left lower extremity was prepped and draped in usual fashion. Leg was elevated exsanguinated with an Esmarch bandage and the pneumatic was raised to 325 mm mercury. An anterior incision was made across the left knee. The skin was incised longitudinally subcutaneous flaps were elevated and an incision was made through the medial retinaculum extending up into the mid third of the quadriceps tendon and extended down to the medial tibial tubercle. Intra-articular findings demonstrated some tricompartmental osteoarthritic changes mainly in the medial compartment with [id number] medially. The knee was exposed by excising the infrapatellar fat pad, excising the meniscal remnants and anterior cruciate ligament. Any inflamed synovial tissue was resected. The fat pad over the anterior femur was resected for placement of the component in that area. The lateral synovial bands were release. Appropriate releases were performed to balance ligaments. The femur was exposed. The custom femoral cutting block was pinned in position. The distal femoral cutting block was applied. The distal femoral cut was made with the oscillating saw. The size 7, 4-in-1 cutting block was placed. The anterior and posterior chamfer cuts were made. The knee was extended and a subperiosteal peel lateral release was performed around the patella. The patella width was measured and width was reproduced using freehand cut technique. The 32 millimeter symmetrical patella was used. 3 drill holes are made for the pegs. The tibia was exposed. A custom tibial cutting block was positioned and drill holes were made for the cutting guide. Cutting guide was placed and the proximal cut was made with the oscillating saw. All osteophytes were resected. The lamina coiled tubing supervisor was used to assess ligamentous balance and the ligaments were balanced in extension and flexion. The tibia was reexposed and measured for a size D tibial component. This was externally rotated in line with the tibial tubercle and the fixation pins were drilled. The proximal tibia was fashioned with the drill and punch. The size 7 CR femoral trial was inserted. The trial MC inserts were used. The 14 mm insert gave balanced ligaments through full range of motion. The patella tracked central. the trials were removed. The orthomix anesthetic cocktail was injected per protocol. The knee was then copiously irrigated with pulsatile lavage antibiotic solution with bacitracin. The final components were cemented with Simplex cement. The final components were Marlene persona 7 CR narrow femoral component, size D tibia, size 14 mm MC tibial polyethylene and 32 patella. While the cement cured with the knee in full extension the Betadine soak was used per protocol. After the cement cured, the knee joint was copiously irrigated with antibiotic solution with bacitracin. 2 drains were brought out laterally and connected to a Hemovac. The quadriceps tendon and medial retinaculum were closed with interrupted [id number] #1 Vicryl sutures. The knee was taken through a full range of motion and repair was secure. The subcutaneous tissues were closed with 2-0 Vicryl sutures and skin was closed with blake. Sterile dressings were applied and the patient tolerated the procedure well. Was generalized increased level difficulty due to her obesity BMI 42.9 which increased the length of the time of surgery. Austen ANDINO my physician assistant pressman, assisted in soft tissue retraction instrument management leg positioning the closure and will participate in the postoperative care of the patient. I attest to the content of the Intraoperative Record and any orders documented therein. Any exceptions are noted below.
[2018-12-22] MEDS: FERROUS GLUCONATE 324 MG TAB PO SCH (20:11)
[2018-12-22] MEDS: SENNA 8.6 MG TAB PO SCH (20:19)
[2018-12-22] MEDS: PANTOprazole 40 MG TAB PO SCH (20:19)
[2018-12-22] MEDS: PREGABALIN 50 MG CAP PO SCH (20:19)
[2018-12-22] MEDS: ATORVASTATIN 20 MG TAB PO SCH (20:19)
[2018-12-22] MEDS: DOCUSATE SODIUM 100 MG CAP PO SCH (20:19)
[2018-12-22] MEDS ORDERED: ASPIRIN 81 MG ECTAB PO SCH (21:00)
[2018-12-22] MEDS: LATANOPROST 0.005% OP SOLN 2.5 ML BTL OP SCH (21:18)
[2018-12-23 05:00] LABS: Hematocrit (blood only) 35.9 % (37-47); Mean Corpuscular Hemoglobin 29.1 pg (25-34); Mean Corpuscular Hgb Conc 33.4 g/dL (32-36); Mean Corpuscular Volume 87.1 fL (80-100); Mean Platelet Volume 10.5 fL (7.4-10.4); Platelet Count 217 K/uL (130-400); RDW Standard Deviation 41.7 fL (36.4-46.3); Red Blood Count 4.12 M/uL (4.2-5.4); White Blood Count 17.47 K/uL (4.8-10.8)
[2018-12-23 05:34] LABS: BUN Creatinine Ratio 23.4 (10-20); Creatinine Clr Calc Pharmacy 57.5 ml/min; Est GFR (African American) 57.2; Est GFR (Non-African American) 49.4; Potassium 3.8 mmol/L (3.5-5.1)
[2018-12-23] MEDS: LEVOTHYROXINE SODIUM 75 MCG TABLET PO SCH (05:52)
[2018-12-23] MEDS: ACETAMINOPHEN 500 MG TAB PO SCH ×3 (05:52→21:38)
--- NOTE | 2018-12-23 08:14 | Anesthesiology Progress Note ---
Date of Service December 23, 2018 Anesthesia Post Procedure Vital Signs Vital Signs: Temp Pulse Pulse Resp BP Pulse Ox 12/23/18 07:32 36.7 C 69 18 134/82 92 12/23/18 04:30 36.8 C 96 H 15 117/79 91 12/22/18 23:30 91 12/22/18 23:11 36.6 C 76 15 122/74 89 L 12/22/18 20:16 36.8 C 76 16 145/75 H 93 12/22/18 14:10 36.6 C 68 17 122/78 94 12/22/18 13:14 77 17 129/81 94 12/22/18 12:11 64 17 129/82 94 12/22/18 11:50 68 15 128/82 94 12/22/18 11:15 36.6 C 66 16 128/80 96 12/22/18 11:10 36.6 C 67 16 124/72 98 12/22/18 11:00 36.6 C 71 16 127/76 98 12/22/18 10:50 67 16 119/70 98 12/22/18 10:40 77 16 116/70 98 12/22/18 10:33 36.6 C 82 16 100/71 94 Pain Intensity Left Knee: Pain Intensity: 3 Notes Mental Status: alert / awake / arousable and participated in evaluation Patient Amnestic to Procedure: Yes Nausea / Vomiting: adequately controlled Pain: adequately controlled Airway Patency, RR, SpO2: stable & adequate BP & HR: stable & adequate Hydration State: stable & adequate Neuraxial Anesthesia: was administered and sensory block resolved Anesthetic Complications: no major complications apparent and Pt Satisfied with anesthetic care
--- NOTE | 2018-12-23 08:29 | Orthopedic Progress Note ---
Date of Service December 23, 2018 Assessment & Plan (1) Primary localized osteoarthritis of left knee: Postop day 1 status post left TKA Begin PT and OT protocols. Weightbearing as tolerated. Continue DVT prophylaxis and pain management. DC planning-patient is planning on home health services upon discharge Subjective Patient sitting up in bed. She is awake and alert. She has some mild knee pain in the operative leg but otherwise is comfortable. Denies any shortness of breath, chest pain, lightheadedness. Physical Exam Physical Exam: Dressings are clean, dry, and intact. Calves are soft and nontender. Neurovascular is intact. Toes are mobile. Hemovac drained 150 mL's from the previous shift. Results & Data Vital Signs (Past 12 Hours) Vital Signs Temp Pulse Resp BP Pulse Ox 12/23/18 07:32 36.7 C 69 18 134/82 92 12/23/18 04:30 36.8 C 96 H 15 117/79 91 12/22/18 23:30 91 12/22/18 23:11 36.6 C 76 15 122/74 89 L Laboratory Results Laboratory Results WBC 17.47 K/uL (4.8-10.8) H 12/23/18 04:33 RBC 4.12 M/uL (4.2-5.4) L 12/23/18 04:33 Hgb 12.0 g/dL (12.0-16.0) 12/23/18 04:33 Hct 35.9 % (37-47) L 12/23/18 04:33 MCV 87.1 fL (80-100) 12/23/18 04:33 MCH 29.1 pg (25-34) 12/23/18 04:33 MCHC 33.4 g/dL (32-36) 12/23/18 04:33 RDW Std Deviation 41.7 fL (36.4-46.3) 12/23/18 04:33 RDW Coeff of Earline 13.0 % (11.5-14.5) 12/23/18 04:33 Plt Count 217 K/uL (130-400) 12/23/18 04:33 MPV 10.5 fL (7.4-10.4) H 12/23/18 04:33 Immature Gran % (Auto) 0.1 % 11/11/18 14:58 Neut % (Auto) 57.3 % 11/11/18 14:58 Lymph % (Auto) 31.4 % 11/11/18 14:58 Irion % (Auto) 9.2 % 11/11/18 14:58 Eos % (Auto) 1.3 % 11/11/18 14:58 Baso % (Auto) 0.7 % 11/11/18 14:58 Immature Gran # (Auto) 0.01 K/uL (0.00-0.02) 11/11/18 14:58 Neut # (Auto) 4.06 K/uL (1.4-6.5) 11/11/18 14:58 Lymph # (Auto) 2.22 K/uL (1.2-3.4) 11/11/18 14:58 Irion # (Auto) 0.65 K/uL (0.11-0.59) H 11/11/18 14:58 Eos # (Auto) 0.09 K/uL (0-0.5) 11/11/18 14:58 Baso # (Auto) 0.05 K/uL (0-0.2) 11/11/18 14:58 PT 10.9 Seconds (9.0-12.0) 11/11/18 14:58 INR 1.1 (0.9-1.1) 11/11/18 14:58 APTT 25.4 Seconds (21.0-31.0) 11/11/18 14:58 PTT Ratio 0.9 11/11/18 14:58 Sodium 140 mmol/L (136-145) 12/23/18 04:33 Potassium 3.8 mmol/L (3.5-5.1) 12/23/18 04:33 Chloride 108 mmol/L (98-107) H 12/23/18 04:33 Carbon Dioxide 27 mmol/L (21-32) 12/23/18 04:33 Anion Gap 5.0 (3-11) 12/23/18 04:33 BUN 27 mg/dl (7-18) H 12/23/18 04:33 Creatinine 1.16 mg/dl (0.6-1.2) 12/23/18 04:33 Est Cr Clr Drug Dosing 57.5 ml/min 12/23/18 04:33 Est GFR ( Amer) 57.2 12/23/18 04:33 Est GFR (Non-Af Amer) 49.4 12/23/18 04:33 BUN/Creatinine Ratio 23.4 (10-20) H 12/23/18 04:33 Glucose 159 mg/dl (70-99) H 12/23/18 04:33 POC Glucose 231 (70-99) H 12/22/18 20:32 Estimat Average Glucose 120 mg/dl 11/11/18 14:58 Hemoglobin A1c 5.8 % (4.5-5.6) H 11/11/18 14:58 Calcium 8.0 mg/dl (8.5-10.1) L 12/23/18 04:33 Albumin 3.8 gm/dl (3.4-5.0) 11/11/18 14:58 Urine Color Yellow 11/11/18 14:58 Urine Appearance Clear (Clear) 11/11/18 14:58 Urine pH 5.5 (4.5-7.5) 11/11/18 14:58 Ur Specific [place] 1.019 (1.000-1.030) 11/11/18 14:58 Urine Protein Negative (Negative) 11/11/18 14:58 Urine Glucose (UA) Negative (Negative) 11/11/18 14:58 Urine Ketones Negative (Negative) 11/11/18 14:58 Urine Blood Negative (Negative) 11/11/18 14:58 Urine Nitrite Negative (Negative) 11/11/18 14:58 Urine Bilirubin Negative (Negative) 11/11/18 14:58 Urine Urobilinogen Negative (Negative) 11/11/18 14:58 Ur Leukocyte Esterase 2+ (Negative) H 11/11/18 14:58 Urine WBC (Auto) 10-30 /hpf (0-5) H 11/11/18 14:58 Urine RBC (Auto) 0-4 /hpf (0-4) 11/11/18 14:58 U Hyaline Cast (Auto) 1-5 /lpf (0-5) 11/11/18 14:58 U Epithel Cells (Auto) 10-20 /lpf (0-5) H 11/11/18 14:58 Urine Bacteria (Auto) Negative (Negative) 11/11/18 14:58 Blood Type A Positive 11/11/18 14:58 Antibody Screen NEGATIVE 11/11/18 14:58
[2018-12-23] MEDS: OXYCODONE HCL IR 5 MG TAB (IMMEDIATE RELEASE) PO PRN ×2 (08:53→19:15)
[2018-12-23] MEDS: CITALOPRAM 20 MG TAB PO SCH (08:55)
[2018-12-23] MEDS: FERROUS GLUCONATE 324 MG TAB PO SCH ×2 (08:55→17:55)
[2018-12-23] MEDS: DOCUSATE SODIUM 100 MG CAP PO SCH ×2 (08:55→20:33)
[2018-12-23] MEDS: MULTIVITAMIN TAB PO SCH (08:55)
[2018-12-23] MEDS: RIVAROXABAN 10 MG TABLET PO SCH (08:56)
[2018-12-23] MEDS: LACTOBACILLUS ACIDOPHILUS (FLORANEX) TAB PO SCH (08:56)
[2018-12-23] MEDS: dilTIAZem HCL 240 MG CAPCR PO SCH (08:59)
[2018-12-23] MEDS: LOSARTAN POTASSIUM 50 MG TAB PO SCH (08:59)
[2018-12-23] MEDS: PREGABALIN 50 MG CAP PO SCH ×2 (09:00→20:35)
--- NOTE | 2018-12-23 09:24 | Hospitalist Progress Note ---
Date of Service December 23, 2018 Assessment & Plan (1) Primary localized osteoarthritis of left knee: (2) Status post total knee replacement, left: S/P L TKA by Dr. Covarrubias, POD #1 Resume Post Op Care per Surgery Protocol Incentive Spirometry 10x per Hour Resume Relative Home Meds Where Appropriate PT/OT with appropriate fall precautions Transition from IV to PO Pain control DVT Prophylaxis Per Surgery Protocol Monitor Daily Labs (3) Hypertension: Blood pressure controlled postoperatively Continue losartan and diltiazem Hold triamterene/HCTZ until volume status reevaluated in a.m. Patient also on potassium supplement Monitor BMP (4) Pre-diabetes: Preoperative A1c 5.8 Patient received preop Decadron Monitor blood glucose initial 24hr for hyperglycemic response given steroid (5) Hyperlipidemia: continue statin (6) Hypothyroidism: Continue levothyroxine (7) Sleep apnea: CPAP at HS (8) Glaucoma: Continue latanoprost (9) Depression: Continue citalopram Mood stable (10) GERD (gastroesophageal reflux disease): continue PPI (11) Morbid obesity: BMI 42.9 encourage lifestyle modifications (12) DVT prophylaxis: BELEM Wheatley Disposition: Per primary Follow up: PCP Sonali Martins PA-C upon discharge ROS-No Headache, No Visual Changes, No Nausea, No Vomiting, No Fever, No Chills, No Neck Pain or Stiffness, No Chest Pain, No Palpitations, No SOB, No OCONNELL, No Cough, No Sputum, No Wheezing, No Abdominal Pain, No Diarrhea, No Hematemesis, No Hemoptysis, No Unexpected Weight Loss, No Flank pain, No Melena, No Hematochezia, No Frequency, No Urgency, No Burning, No Hematuria, No Rashes, No Diaphoresis. Appetite is Normal, Sore L Knee Physical Exam Gen-AAO x 3, NAD, Afebrile, obese Head-NCAT, EOMI, PERRLA, Anicteric Sclera, No Posterior Pharyngeal Erythema Neck-Supple, No JVD, No Thyromegaly, No Masses, No LAD, No Bruits Lungs-Clear to Auscultation Bilaterally, No Rales, No Rhonchi, No Wheezing, No C repitus Chest-No S4, +S1, +S2, No S3, No Murmurs, No Rubs, No Gallops, No Ectopy Abdomen-Soft, Bowel Sounds Present, Non Tender, Non Distended, No Hepatomegaly, No Splenomegaly, No Palpable Masses, No Rebound, No Rigidity, No Guarding Musculoskeletal-Full Range of Motion Bilaterally x 3, Dec ROM L Knee, No CVAT Extremities-No Cyanosis, No Clubbing, No Edema, L Knee c Drain and TEREZA Wrap Nuero-Cranial Nerves II-XII grossly intact, Motor WNL, DTRs WNL, Strength WNL, Non Focal Psych-Normal Mood Labs checked Results & Data Vital Signs (Past 12 Hours) Vital Signs Temp Pulse Pulse Resp BP Pulse Ox 12/23/18 08:58 69 120/76 12/23/18 07:32 36.7 C 69 18 134/82 92 12/23/18 04:30 36.8 C 96 H 15 117/79 91 12/22/18 23:30 91 12/22/18 23:11 36.6 C 76 15 122/74 89 L
[2018-12-23] MEDS: POTASSIUM CHLORIDE 20 MEQ TABCR PO SCH (12:34)
[2018-12-23] MEDS: ATORVASTATIN 20 MG TAB PO SCH (20:32)
[2018-12-23] MEDS: SENNA 8.6 MG TAB PO SCH (20:32)
[2018-12-23] MEDS: LATANOPROST 0.005% OP SOLN 2.5 ML BTL OP SCH (20:33)
[2018-12-23] MEDS: PANTOprazole 40 MG TAB PO SCH (20:33)
[2018-12-24] MEDS: OXYCODONE HCL IR 5 MG TAB (IMMEDIATE RELEASE) PO PRN ×3 (00:27→13:57)
[2018-12-24] MEDS: ACETAMINOPHEN 500 MG TAB PO SCH ×2 (05:22→13:53)
[2018-12-24] MEDS: LEVOTHYROXINE SODIUM 75 MCG TABLET PO SCH (05:23)
[2018-12-24 05:48] LABS: BUN Creatinine Ratio 28.7 (10-20); Calcium 7.8 mg/dl (8.5-10.1); Creatinine Clr Calc Pharmacy 66.1 ml/min; Est GFR (African American) 67.7; Est GFR (Non-African American) 58.4
[2018-12-24 06:06] LABS: Potassium 3.8 mmol/L (3.5-5.1)
--- NOTE | 2018-12-24 06:54 | Orthopedic Progress Note ---
Date of Service December 24, 2018 Assessment & Plan (1) Primary localized osteoarthritis of left knee: Postop day 2 status post left TKA Continue PT and OT protocols. Weightbearing as tolerated. Continue DVT prophylaxis and pain management. DC planning-patient is planning on home health services upon discharge Plan for discharge to home today. Subjective Patient currently lying in bed. Awake and alert. No overt complaints. Pain is controlled. Hoping to go home today. Physical Exam Physical Exam: Silverlon dressing is clean, dry, intact. Calves are soft and nontender. Neurovascular is intact. Toes are mobile. Results & Data Vital Signs (Past 12 Hours) Vital Signs Temp Pulse Resp BP Pulse Ox 12/23/18 23:14 36.7 C 66 16 121/82 92
[2018-12-24 08:21] VITALS: TEMP 97.7; O2SAT 93
[2018-12-24] MEDS: LOSARTAN POTASSIUM 50 MG TAB PO SCH (08:31)
[2018-12-24] MEDS: DOCUSATE SODIUM 100 MG CAP PO SCH (08:31)
[2018-12-24] MEDS: CITALOPRAM 20 MG TAB PO SCH (08:32)
[2018-12-24] MEDS: MULTIVITAMIN TAB PO SCH (08:32)
[2018-12-24] MEDS: LACTOBACILLUS ACIDOPHILUS (FLORANEX) TAB PO SCH (08:32)
[2018-12-24] MEDS: FERROUS GLUCONATE 324 MG TAB PO SCH (08:33)
[2018-12-24] MEDS: dilTIAZem HCL 240 MG CAPCR PO SCH (08:33)
[2018-12-24] MEDS: RIVAROXABAN 10 MG TABLET PO SCH (08:33)
[2018-12-24] MEDS: PREGABALIN 50 MG CAP PO SCH (08:36)
[2018-12-24 08:37] VITALS: BP 162/90; PULSE 69
[2018-12-24] MEDS ORDERED: TRIAMTERENE/HCTZ 37.5/25MG TAB PO SCH (09:00)
[2018-12-24] MEDS: POTASSIUM CHLORIDE 20 MEQ TABCR PO SCH (12:11)
--- NOTE | 2018-12-26 12:20 | Discharge Summary ---
Date of Service December 26, 2018 Admission HPI Per Admitting Provider HISTORY OF PRESENT ILLNESS: This is a 63-year-old female patient of Dr. Covarrubias'rich complaining of chronic left knee pain, longstanding, now progressively getting worse. The patient has failed conservative treatment including intraarticular injections, tramadol, ibuprofen and home exercise program. The patient has increased pain with weightbearing activities and her pain does interfere with her activities of daily living. The patient has been diagnosed with end-stage osteoarthritis per clinical and radiographic exams. The patient wished to proceed with a left total knee arthroplasty. Admission Exam Per Admitting Provider PHYSICAL EXAMINATION: GENERAL: Well-developed, well-nourished 63-year-old female, in no acute distress. She is alert and oriented x3 and pleasant. HEENT: Normocephalic, atraumatic. Extraocular motions are intact. Pupils are equal and reactive to light. HEART: Regular rate and rhythm. No murmurs appreciated. LUNGS: Clear. ABDOMEN: Soft, nontender, bowel sounds present. EXTREMITIES: Left knee reveals limited range of motion of 0-125 degrees with an effusion. She has medial joint line tenderness with a varus deformity. She has 5/5 strength with pain. NEUROLOGIC: Neurovascularly, she is intact in her left lower extremity. Principal Diagnosis Djd Left Knee Discharge Exam Patient currently lying in bed. Awake and alert. No overt complaints. Pain is controlled. Hoping to go home today. Physical Exam Physical Exam: Silverlon dressing is clean, dry, intact. Calves are soft and nontender. Neurovascular is intact. Toes are mobile. Results & Data Vital Signs (Past 12 Hours) Vital Signs Temp Pulse Resp BP Pulse Ox 12/23/18 23:14 36.7 C 66 16 121/82 92 Discharge Data Allergies Allergy/AdvReac Type Severity Reaction Status Date / Time adhesive Allergy Mild RED SKIN Verified 12/22/18 06:33 (IF BANDAIDS LEFT ON FOR LONG TIME) No Known Drug Allergies Allergy Unknown NONE Verified 12/22/18 06:33 Consultations 12/17/18 13:35 Consult Hospitalist Routine 12/22/18 11:18 Consult Case Management - Discharge Planning Routine Procedures Performed Operation Date: 12/22/18 08:40 Actual Procedures p Left Total Knee Arthroplasty(Left) - Harsha Covarrubias MD Ordered Studies 12/22/18 05:00 US - OR guided needle placemen Routine Hospital Course (1) Primary localized osteoarthritis of left knee: Patient was admitted on the above-noted date and had the above-noted s urgery performed which she tolerated well. Her first postoperative day, she was remaining stable. Vital signs are stable and pain was controlled. She had no overt complaints other than a little bit of knee pain that morning. She denies shortness of breath, chest pain, lightheadedness. Dressings are clean dry and intact, calves are soft nontender, neurovascular is intact. Hemoglobin was 12.0. She was started on her physical therapy protocol and continued on DVT prophylaxis and pain management. On her second postoperative day she was continuing to progress with her physical therapy. Vital signs remained stable. Silverlon dressing was clean dry and intact. Calves are soft nontender. Neurovascular is intact. Pain was controlled and she was otherwise remaining stable and she was discharged home with home health services. Total Time Total Time Spent Total Time Spent (In Minutes): 5 Discharge Plan Discharge Items Patient Disposition: Home - Home Health Services Reason For Visit: Osteoarthritis, Left Knee Discharge Diagnosis: Osteoarthritis Left knee Activity: Per Instructions section Weightbearing: Left weightbearing Weightbearing Comment: as tolertated with walker Non-emergency contact: Surgeon Call non-emergency contact if: your pain is not controlled, your temperature is above 101.5, your wound has increased redness and your wound has increased drainage Follow-up/Referrals: Sonali Martins PA-C [Primary Care Provider] - Diet: Regular Addtl Attending Provider Instructions: ACTIVITY RECOMMENDATIONS: SELF CARE INSTRUCTIONS AFTER TOTAL KNEE REPLACEMENT A. You may need to continue a physical therapy program after discharge from the hospital. There are several options available to you. Your doctor will assist you in selecting the best one for you. 1. An out-patient facility 2 to 3 times a week for therapy or home therapy. 2. Continue working on all exercises taught to you in the hospital. Your goals should be to increase bending of your knee to 90 degrees and beyond and to fully straighten your knee. B. You may progress at your own pace from walking with a walker or crutches to a cane; then to no assistive devices. C. Make walking a part of your daily routine. Be up as much as comfortable with rest periods throughout the day. Rest with leg elevation is very important. Use the ice wrap frequently for the first 3-4 weeks. D. There are no restrictions on activities. You may ride in a car, shop, participate in line service person and all social activities. E. Wear the long elastic stockings (ALFREDA hose) 20 hours a day for 2 weeks after surgery. They can be removed several times a day for laundering and for a bath. F. You may shower, no tub baths until cleared by your doctor. SPECIAL CARE INSTRUCTIONS: VERY IMPORTANT TO READ AND REVIEW A. There are a few signs you need to watch for after you are home. Call [facility] if you notice any of the followin. Increased severe knee pain. Some pain is expected especially when you exercise. 2. Increased swelling in your leg or knee; pain or swelling of the calf muscle in either lower leg. 3. Any fluid drainage from the incision. 4. Shortness of breath or chest pain. B. Please call [facility] at if you have any concerns or questions about your operation or recovery. The doctor or his nurse will return your call promptly. C. You must take antibiotics before dental work, bladder, bowel or other surgery. Your doctor will provide you with a permanent care to carry describing this precaution. IMPORTANT: * REMEMBER TO TAKE RIVAROXABAN 10MG DAILY FOR 4 WEEKS UNLESS OTHERWISE D IRECTED. THIS IS YOUR BLOOD THINNER. * HIGH RISK PATIENTS MAY BE PRESCRIBED A STRONGER BLOOD THINNER. THIS WILL BE PROVIDED AT DISCHARGE. * CALL IF INCREASED PAIN, REDNESS, DRAINAGE OR FEVER GREATER THAT 101. * WEAR ALFREDA HOSE 20 HOURS PER DAY FOR 2 WEEKS. * Silverlon- This is a large adhesive bandage that contains silver ions. This helps your incision heal by fighting off bacteria and protecting it from the outside environment. You are permitted to shower with this dressing. This will remain on your incision for 7 days and then should be removed. Some visible blood or drainage through the dressing window is normal. If there is significant drainage or leaking noted before the 7 days notify your doctor's office immediately. Once removed, keep incision clean and dry. If there is any drainage or redness noted, please call your surgeon. . If you notice any redness around the edges of the Silverlon dressing, remove and replace with a dressing of 4 x 4's, and medical tape. FOLLOW UP VISIT: If appointment is not already scheduled: Please call [facility] to make a follow-up appointment for 2 weeks after your surgery at . Pending Studies at Discharge: Yes Studies:: Pathology Stand-Alone Forms: [facility] Medications and DC Order Prescriptions: New acetaminophen [Tylenol Extra Strength] 500 mg Tablet 1,000 mg PO Q8 14 Days Qty: 84 RF: 0 oxycodone 5 mg Tablet 5 mg PO Q4H PRN (Reason: pain) Qty: 30 RF: 0 Xarelto 10 mg Tablet 10 mg PO DAILY Qty: 28 RF: 0 sennosides [Senokot] 8.6 mg Tablet 17.2 mg PO HS PRN (Reason: constipation) Qty: 30 RF: 0 Continued latanoprost [Xalatan] 0.005 % Drops 1 drp OPHTHALMIC (EYE) PM RF: 0 atorvastatin 20 mg Tablet 20 mg PO PM RF: 0 diltiazem HCl 240 mg Capsule,Extended Release 24 Hr 240 mg PO QAM RF: 0 levothyroxine 75 mcg Tablet 75 mcg PO QAM RF: 0 citalopram 20 mg Tablet 20 mg PO QAM RF: 0 pantoprazole 40 mg Tablet,Delayed Release (Dr/Ec) 40 mg PO QPM RF: 0 triamterene-hydrochlorothiazid 37.5-25 mg Tablet 1 tab PO QAM RF: 0 losartan 100 mg Tablet 100 mg PO QAM RF: 0 pregabalin [Lyrica] 50 mg Capsule 50 mg PO BID RF: 0 Centrum Silver Women 8 mg iron-400 mcg-300 mcg Tablet 1 tab PO QAM RF: 0 potassium chloride 20 mEq Tablet Extended Release 20 meq PO QDL RF: 0 Fish Oil 1,200 mg PO BID RF: 0 Probiotic 1 cap PO QAM RF: 0 Discontinued meloxicam 15 mg Tablet 15 mg PO QAM RF: 0 Discharge Orders: Discharge Order (Routine); Ordered 12/24/18 Ordered By: Austen Villalobos/Other Patient Handouts: Surgery Prevent DVT After Admission Data Admit Date/Time: 12/22/18 10:43 Attending Provider: Harsha Covarrubias Admit Provider: Harsha Covarrubias Primary Care Provider: Sonali Martins Other Providers: Armando Salgado ; Adi May Other Interventions: Discharge Summary Assessment (RN) Last Done: 12/24/18 13:34 DC Date/Time DO NOT enter until pt leaves facility: 12/24/18 14:44
== END 2018-12-24 14:44 | disposition home health service (06) | DRG 470 ==
LOC: ASU 06:10 → 3E 10:43

== ENCOUNTER 2020-09-08 07:49 | Observation (INO) ==
--- NOTE | 2020-08-11 10:21 | PAT Medication Instructions ---
Medication Instructions Date of Service August 11, 2020 Home Medications atorvastatin 20 mg PO PM citalopram 20 mg PO QAM diltiazem HCl 240 mg PO QAM latanoprost [Xalatan] 1 drp OPHTHALMIC (EYE) PM levothyroxine 75 mcg PO QAM losartan 100 mg PO QAM pantoprazole 40 mg PO QPM potassium chloride 20 meq PO QDL pregabalin [Lyrica] 50 mg PO BID triamterene-hydrochlorothiazid 1 tab PO QAM acetaminophen [Tylenol Extra Strength] 500 - 1,000 mg PO Q6H PRN lactobacillus combination no.4 [Probiotic] 3,000 mmu cells PO QAM magnesium citrate 120 mg PO BID omega 8-yop-ehb-fish oil [Fish Oil] 2 cap PO QPM STOP taking 2 weeks before surgery (or as soon as possible if surgery is within 2 weeks) omega 1-cao-ywn-fish oil [Fish Oil] 2 cap PO QPM DO NOT take the morning of surgery losartan 100 mg PO QAM potassium chloride 20 meq PO QDL triamterene-hydrochlorothiazid 1 tab PO QAM lactobacillus combination no.4 [Probiotic] 3,000 mmu cells PO QAM magnesium citrate 120 mg PO BID Take morning of surgery With a small sip of water, OTHERWISE NOTHING TO EAT OR DRINK AFTER MIDNIGHT: citalopram 20 mg PO QAM diltiazem HCl 240 mg PO QAM levothyroxine 75 mcg PO QAM pregabalin [Lyrica] 50 mg PO BID acetaminophen [Tylenol Extra Strength] 500 - 1,000 mg PO Q6H PRN (okay to take up to 4 hours prior to surgery if needed) Take evening before surgery atorvastatin 20 mg PO PM latanoprost [Xalatan] 1 drp OPHTHALMIC (EYE) PM pantoprazole 40 mg PO QPM pregabalin [Lyrica] 50 mg PO BID acetaminophen [Tylenol Extra Strength] 500 - 1,000 mg PO Q6H PRN (if needed) magnesium citrate 120 mg PO BID Other Notes If you have any questions please call us at [phone] or [phone] or [phone] or [phone]
--- NOTE | 2020-08-15 09:27 | Anesthesiology Consultation ---
Date of Service August 15, 2020 Assessment & Plan (1) Encounter for pre-operative examination: - COVID screening: Per assessment on 08/15: Travel screen negative, no known COVID-19 positive contacts or current COVID-19 related symptoms. Patient vaccinated. Surgeon arranging preop COVID testing. Awaiting results. - Hx glidescope intubation: L5-S1 posterior lumbar spinal fusion/decompression (07/09/17): Grade view 1, Glidescope#3, ETT 7.5 at [facility] - S/P Left TKA (12/22/18): SAB at L3 (x1 attempt) + PNB at [facility] Chart Review Chart Review: Acceptable Risk for Surgery and Patient seen in Pre Admission Testing Teaching & Discussion Pre-Anesthesia Teaching/Discussion Notes: Instructed NPO after midnight before surgery,except medications with 15 cc of water. Medication instructions provided according to the PAT guidelines. History Surgery Operation Date: 09/08/20 13:15 Proposed Procedures p Right Total Knee Arthroplasty - Harsha Covarrubias MD Height/Weight Height: 5 ft 2 in Weight: 114.5 kg Allergies Allergy/AdvReac Type Severity Reaction Status Date / Time adhesive Allergy Mild Red skin Verified 08/15/20 09:25 (if bandaids on for long time) No Known Drug Allergies Allergy Unknown NONE Verified 08/08/20 08:31 Medications Home Medications Medication Instructions Recorded Confirmed Last Taken atorvastatin 20 mg PO PM 11/04/18 08/08/20 12/21/18 19:30 citalopram 20 mg PO QAM 11/04/18 08/08/20 12/22/18 05:00 diltiazem HCl 240 mg PO QAM 11/04/18 08/08/20 12/22/18 05:00 latanoprost [Xalatan] 1 drp OPHTHALMIC (EYE) PM 11/04/18 08/08/20 12/21/18 20:00 levothyroxine 75 mcg PO QAM 11/04/18 08/08/20 12/22/18 05:00 losartan 100 mg PO QAM 11/04/18 08/08/20 12/21/18 08:00 pantoprazole 40 mg PO QPM 11/04/18 08/08/20 12/21/18 19:30 potassium chloride 20 meq PO QDL 11/04/18 08/08/20 12/21/18 12:00 pregabalin [Lyrica] 50 mg PO BID 11/04/18 08/08/20 12/22/18 05:00 triamterene-hydrochlorothiazid 1 tab PO QAM 11/04/18 08/08/20 12/21/18 08:00 acetaminophen [Tylenol Extra 500 - 1,000 mg PO Q6H PRN 08/08/20 08/08/20 Unknown Strength] lactobacillus combination no.4 3,000 mmu cells PO QAM 08/08/20 08/08/20 Unknown [Probiotic] magnesium citrate 120 mg PO BID 08/08/20 08/08/20 Unknown omega 5-nia-kqd-fish oil [Fish Oil] 2 cap PO QPM 08/08/20 08/08/20 Unknown Past Medical History Medical History Depression GERD (gastroesophageal reflux disease) controlled Glaucoma Hiatal hernia History of COVID-19 Dx 02/27/20 ([facility]) > symptoms at time of loss of taste/smell > taste/smell improved but not fully recovered Hyperlipidemia Hypertension Hypothyroidism Morbid obesity Osteoarthritis Pre-diabetes A1c 5.8% 11/2018 Sleep apnea CPAP (compliant) Exercise / Class Metabolic Activity III < 4 Walking/Shop/Light housework (one flight of stairs (no chest pain, + sob)) Past Family History Family History Father AAA (abdominal aortic aneurysm) Aunt AAA (abdominal aortic aneurysm) Sister AAA (abdominal aortic aneurysm) Mother Breast cancer Sister Breast cancer Fibromyalgia Past Surgical History Surgical History Fusion of spine L5-S1 posterior lumbar spinal fusion/decompression (07/09/17): Grade view 1, Glidescope#3, ETT 7.5 at [facility] History of carpal tunnel release of both wrists History of cholecystectomy History of colonoscopy + polypectomy History of esophagogastroduodenoscopy (EGD) History of tooth extraction History of total knee replacement Left TKA (12/22/18): SAB at L3 (x1 attempt) + PNB at [facility] Past Anesthesia History Difficult Airway (L5-S1 posterior lumbar spinal fusion/decompression (5/8/18): Grade view 1, Glidescope#3, ETT 7.5 at [facility]) and No Family Hx of Anesthesia Complications History of PONV No Hx of PONV and Hx of Motion Sickness Social History Smoking Status: Never smoker Do You Dip or Chew Tobacco: No Hx Alcohol Use: Yes Alcohol type: hard liquor alcohol intake frequency: holidays/special occasions only Hx Substance Use: No substance use type: does not use Review of Systems Patient denies chest pain, shortness of breath, fever, chills, cough, wheezing, palpitations. Physical Exam Vital Signs VITALS BP 122/76 P 69 TEMP 98.1 SP02 94%RA RESP 16 PHYSICAL Full cervical extension range of motion. Full TMJ range of motion. TMD 3 finger breaths Mallampati Score 4 (macroglossia) Dentition: intact Lungs: clear throughout to auscultation Cardiac: regular rate and rhythm, no murmurs noted Spine: normal Carotid arteries: negative bruit Extremities: no edema Short neck Lab Results Anesthesia Preop Results Results Anesthesia Widget: WBC 5.01 K/uL (4.8-10.8) 08/15/20 Hgb 14.4 g/dL (12.0-16.0) 08/15/20 Hct 43.0 % (37-47) 08/15/20 Plt 257 K/uL (130-400) 08/15/20 Na 142 mmol/L (136-145) 08/15/20 K 3.9 mmol/L (3.5-5.1) 08/15/20 Cl 107 mmol/L (98-107) 08/15/20 CO2 29 mmol/L (21-32) 08/15/20 BUN 20 mg/dl (7-18) H 08/15/20 Creat 1.00 mg/dl (0.6-1.2) 08/15/20 Glucose Level 111 mg/dl (70-99) H 08/15/20 PT 10.3 Seconds (9.0-12.0) 08/15/20 PTT 24.6 Seconds (21.0-31.0) 08/15/20 INR 1.0 (0.9-1.1) 08/15/20 HA1c 6.1 % (4.5-5.6) H 08/15/20 Urine Color Yellow 08/15/20 Urine Appearance Clear (Clear) 08/15/20 Urine pH 8.0 (4.5-7.5) H 08/15/20 Urine Specific [place] 1.010 (1.000-1.030) 08/15/20 Urine Protein Negative (Negative) 08/15/20 Urine Glucose (UA) Negative (Negative) 08/15/20 Urine Ketones Negative (Negative) 08/15/20 Urine Blood Negative (Negative) 08/15/20 Urine Nitrite Negative (Negative) 08/15/20 Urine Bilirubin Negative (Negative) 08/15/20 Urine Urobilinogen Negative (Negative) 08/15/20 Urine Leukocyte Esterase Negative (Negative) 08/15/20 Blood Type A Positive 08/15/20 Antibody Screen NEGATIVE 08/15/20 Testing Electrocardiogram Date: 08/15/20 Findings: + NSR @ (63) Chest X-Ray Date: 08/15/20 FINDINGS: Lung volumes are normal. Lungs are clear. There is no pneumothorax or pleural effusion. There is borderline cardiomegaly. Mediastinal contours are normal. There is no evidence for pulmonary edema. IMPRESSION: No acute cardiopulmonary findings. Borderline cardiomegaly.
--- NOTE | 2020-09-07 20:00 | History & Physical Report ---
Date of Service September 07, 2020 Assessment & Plan (1) Primary osteoarthritis of right knee: Treatment options discussed with patient. She has failed conservative management and would like to proceed with knee replacement. Risks, benefits and alternatives to surgery including but not limited to infection, DVT, pain, stiffness, need for revision surgery, damage to blood vessels, damage to nerves, PE, , were discussed with the patient and they wish to proceed. Plan on right total knee arthroplasty on 09/08/20 at [facility] with Dr. Covarrubias. Will plan on home health PT upon discharge. Will plan on Xarelto 10mg daily for DVT prophylaxis. All questions answered. F/u post op. History of Present Illness Chief Complaint: Right knee pain Primary Care Provider: Sonali Martins PA-C 64 year old female with PMHx significant for HTN, high cholesterol, hypothyroid, NEVAEH, anxiety with ongoing right knee pain. Pain is interfering with her daily and leisure activity. Previous left knee replacement and had done well. She has failed conservative management including injections. She would like to proceed with right knee replacement. Patient denies headaches, sweats, fevers, chills, double vision, blurred vision, cough, sore throat, dysphagia, chest pain, sob, wheezing, n/v/d/c, numbness, tingling, fatigue, urinary symptoms, mood disorders. ROS positive for right knee pain and stiffness. Allergies Allergy/AdvReac Type Severity Reaction Status Date / Time adhesive Allergy Mild Red skin Verified 08/15/20 09:25 (if bandaids on for long time) No Known Drug Allergies Allergy Unknown NONE Verified 08/08/20 08:31 Home Medications Medication Instructions Recorded Confirmed Type atorvastatin 20 mg PO PM 11/04/18 08/08/20 History citalopram 20 mg PO QAM 11/04/18 08/08/20 History diltiazem HCl 240 mg PO QAM 11/04/18 08/08/20 History latanoprost [Xalatan] 1 drp OPHTHALMIC (EYE) PM 11/04/18 08/08/20 History levothyroxine 75 mcg PO QAM 11/04/18 08/08/20 History losartan 100 mg PO QAM 11/04/18 08/08/20 History pantoprazole 40 mg PO QPM 11/04/18 08/08/20 History potassium chloride 20 meq PO QDL 11/04/18 08/08/20 History pregabalin [Lyrica] 50 mg PO BID 11/04/18 08/08/20 History triamterene-hydrochlorothiazid 1 tab PO QAM 11/04/18 08/08/20 History acetaminophen [Tylenol Extra 500 - 1,000 mg PO Q6H PRN 08/08/20 08/08/20 History Strength] lactobacillus combination no.4 3,000 mmu cells PO QAM 08/08/20 08/08/20 History [Probiotic] magnesium citrate 120 mg PO BID 08/08/20 08/08/20 History omega 7-pcj-bne-fish oil [Fish Oil] 2 cap PO QPM 08/08/20 08/08/20 History Past Med/Surg History Medical History Depression GERD (gastroesophageal reflux disease) controlled Glaucoma Hiatal hernia History of COVID-19 Dx 02/27/20 ([facility]) > symptoms at time of loss of taste/smell > taste/smell improved but not fully recovered Hyperlipidemia Hypertension Hypothyroidism Morbid obesity Osteoarthritis Pre-diabetes A1c 5.8% 11/2018 Sleep apnea CPAP (compliant) Surgical History Fusion of spine L5-S1 posterior lumbar spinal fusion/decompression (07/09/17): Grade view 1, Glidescope#3, ETT 7.5 at [facility] History of carpal tunnel release of both wrists History of cholecystectomy History of colonoscopy + polypectomy History of esophagogastroduodenoscopy (EGD) History of tooth extraction History of total knee replacement Left TKA (12/22/18): SAB at L3 (x1 attempt) + PNB at [facility] Family History Father AAA (abdominal aortic aneurysm) Aunt AAA (abdominal aortic aneurysm) Sister AAA (abdominal aortic aneurysm) Mother Breast cancer Sister Breast cancer Fibromyalgia Social History (Updated 08/08/20 @ 08:54 by Gina Leiva RN) Smoking Status: Never smoker Second Hand Exposure: No; Hx Alcohol Use: Yes Alcohol type: hard liquor Hx Substance Use: No Preferred Language: [place] Communication Ability: Effective [employer] Required: No Beliefs That Will Affect Care: None marital status: Current Living Situation: Spouse current occupational status: retired Feels Safe at Home: Yes Assistive Devices: Glasses Review of Systems All systems reviewed & are unremarkable except as noted in HPI & below Physical Exam Constitutional: well developed and well nourished; no acute distress Eyes: PERRL, conjunctivae normal, anicteric sclerae ENMT: external ear and nose normal, oropharynx normal Neck: trachea midline, no thyromegaly Respiratory: normal respiratory effort, lungs clear to auscultation Cardiovascular: RRR, no murmur, no edema Musculoskeletal: Right knee: Varus alignment. Tenderness medial joint line. Mild crepitation. Positive Dayanna's. Stable to valgus and varus. ROM 0-125 degrees. Skin: no rashes, warm and dry Neurologic: patellar DTR's 2+ bilat, sensation intact Psychiatric: A+Ox3, euthymic affect Results & Data ([facility]) Diagnostic Findings X-rays of her right knee demonstrate she has osteoarthritis in her right knee. She has patellofemoral and medial compartment OA. She has a varus knee and bone on bone in the medial compartment with osteophytes and subchondral sclerosis.
[~2020-09-08 07:49] MED LIST changes: +BUPIVACAINE 0.5 % 5 MG/1 ML PF 10ML VIAL ONE; -CEFAZOLIN 2000MG 2,000 MG/15 ML SYR IV SCH; -ROPIVACAINE 0.5% HCL/PF 150 MG, BUPIVACAINE 0.5% MPF 30 ML, EPINEPHrine 30MG/30ML (OR U... INFIL SCH; +ROPIVACAINE 0.5% HCL/PF 150 MG, BUPIVACAINE 0.75% MPF 20 ML, EPINEPHrine 30MG/30ML (OR ... INSTIL SCH; +TRANEXAMIC ACID 1,000 MG **IV Intra-op IV SCH; +ceFAZolin 2000MG 2,000 MG/15 ML SYR IV SCH
[2020-09-08] MEDS ORDERED: MIDAZOLAM HCL 1 MG/ML 2ML VIAL ONE (08:25)
[2020-09-08] MEDS ORDERED: fentaNYL citrate 100 MCG/2 ML VIAL ONE (08:25)
[2020-09-08] MEDS ORDERED: ONDANSETRON INJ 2 MG/ML 2 ML VIAL IV PRN ×2 (09:26→13:48)
[2020-09-08] MEDS ORDERED: ePHEDrine sulfate 50 MG/ML AMP IV PRN (09:26)
[2020-09-08] MEDS ORDERED: ATROPINE SULFATE 0.1 MG/ML 10ML SYR IV PRN (09:26)
[2020-09-08] MEDS ORDERED: fentaNYL citrate 100 MCG/2 ML VIAL IV PRN (09:26)
--- NOTE | 2020-09-08 10:06 | History & Physical Bridge Note ---
Date of Service September 08, 2020 History & Physical Bridge Note I have examined the patient, reviewed the History & Physical and in the interval since the performance of the History & Physical I have noted the following changes of clinical significance: no changes noted
[2020-09-08] MEDS ORDERED: PROPOFOL IV EMULSION 10 MG/ML 20 ML VIAL IV ONE (10:26)
[2020-09-08] MEDS ORDERED: KETAMINE 50 MG/5 ML SYRINGE ONE (10:26)
[2020-09-08] MEDS ORDERED: ORTHO JOINT ANESTHETIC ONE (10:27)
[2020-09-08] MEDS ORDERED: GLYCOPYRROLATE 0.2 MG/ML VIAL ONE (10:46)
--- NOTE | 2020-09-08 12:48 | Post Operative Brief Note ---
Immediate Post Op Note v1 Date of Surgery September 08, 2020 Pre & Post Diagnosis Operation Date: 09/08/20 10:10 Pre-Op Diagnosis: Right Unilateral Primary Osteoarthritis morbid obesity BMI 45.6 Post-Op Diagnosis: Right Unilateral Primary Osteoarthritis morbid obesity BMI 45.6 I identified the patient and participated in the time-out.: Yes Procedure Operation Date: 09/08/20 10:10 Actual Procedures p Right Total Knee Arthroplasty(Right) - Harsha Covarrubias MD Surgeon Harsha Covarrubias MD Linux Support Engineer Anthony ANDINO Estimated Blood Loss 5 Findings Consistent with Post-Op Diagnosis Specimens Bone cuts Drains Hemovac Drain Anesthesia Type MAC Spinal Regional Complications none Disposition Accompanied Patient To Recovery: No Disposition: Recovery Room Overlapping Procedure I was immediately available: during the entire case.
--- NOTE | 2020-09-08 13:07 | Operative Report ---
Post Operative Report Pre & Post Diagnosis Operation Date: 09/08/20 10:10 Pre-Op Diagnosis: Right Unilateral Primary Osteoarthritis, morbid obesity BMI 45.6 Post-Op Diagnosis: Right Unilateral Primary Osteoarthritis, morbid obesity BMI 45.6 I identified the patient and participated in the time-out.: Yes Procedure Operation Date: 09/08/20 10:10 Actual Procedures p Right Total Knee Arthroplasty(Right) - Harsha Covarrubias MD Surgeon Harsha Covarrubias MD Gear Shaper Set Up Operator Anthony ANDINO Estimated Blood Loss 5 Findings Consistent with Post-Op Diagnosis Specimens Bone cuts Drains 2 Hemovac Anesthesia Type MAC Spinal Regional Complications none None Disposition Accompanied Patient To Recovery: No Disposition: Recovery Room Indications 64-year-old female with severe end-stage osteoarthritis right knee. She has successful left knee replacement now wants proceed with a right knee replacement. Right knee has a varus knee tricompartment osteoarthritis [id number] medial compartment. Moderate patellofemoral osteoarthritis. Description of Procedure Patient was taken to the operating room placed supine on the operating table and anesthetized under spinal MAC regional anesthesia. Exam under anesthesia demonstrated moderate obesity but the right knee she had most of her obesity was abdominal at this time and no severe obesity of the knee area. A pneumatic tourniquet was placed about the moderately obese thigh of the right lower extremity. The right lower extremity was prepped and draped in usual fashion. The leg was elevated exsanguinated with an Esmarch bandage and the pneumatic was raised to 350 mm mercury. An anterior incision was made across the right knee. The skin was incised longitudinally subcutaneous flaps were elevated and an incision was made through the medial retinaculum extending up into the mid third of the quadriceps tendon and extended down to the medial tibial tubercle. Intra-articular findings demonstrated tricompartmental osteoarthritis [id number] medial compartment with eburnated bone. There was some subluxation of femur medial on the tibia with some articular wear in the lateral compartment with grade 3, 1 small grade 4 area of the chondral surfaces. Patella was grade 3 Marked softening and peripheral osteophytes and there was a large thickened medial plica and suprapatellar plica.. The knee was exposed by excising the infrapatellar fat pad, excised both plica, excising the meniscal remnants and anterior cruciate ligament. Any inflamed synovial tissue was resected. The fat pad over the anterior femur was resected for placement of the component in that area. The lateral synovial bands were release. The femur was exposed. The custom femoral cutting block was pinned in position. The distal femoral cutting block was applied. The distal femoral cut was made with the oscillating saw. The size 7, 4-in-1 cutting block was placed. The anterior and posterior chamfer cuts were made. The knee was extended and a subperiosteal peel lateral release was performed around the patella. The patella width was measured and w idth was reproduced using freehand cut technique. The 32 x 8.5 millimeter symmetrical patella was used. 3 drill holes are made for the pegs. The tibia was exposed. A custom tibial cutting block was positioned and drill holes were made for the cutting guide. Cutting guide was placed and the proximal cut was made with the oscillating saw. All osteophytes were resected. The lamina theatrical rigger was used to assess ligamentous balance and the ligaments were balanced in extension and flexion. The tibia was reexposed and measured for a size D tibial component. This was externally rotated in line with the tibial tubercle and the fixation pins were drilled. The proximal tibia was fashioned with the drill and punch. The size 7 CR femoral trial was inserted. The trial MC inserts were used. The 12 mm insert gave balanced ligaments through full range of motion. The patella tracked centrally. the trials were removed. The orthomix anesthetic cocktail was injected per protocol. The knee was then copiously irrigated with pulsatile lavage saline solution. The final components were cemented with Simplex cement. The final components were Marlene [employer] persona size 7 standard CR right femoral component, D right tibial component, 12 mm MC polyethylene tibial insert, 32 x 8.5 symmetrical patella. After the cement cured with the knee in full extension the Betadine soak was used per protocol. The knee joint was copiously irrigated with antibiotic solution with bacitracin. 2 drains were brought out laterally and connected to a Hemovac. The quadriceps tendon and medial retinaculum were closed with interrupted [id number] #1 Vicryl sutures. The knee was taken through a full range of motion and repair was secure. Range of motion 0 through 135. The subcutaneous tissues were closed with 2-0 Vicryl sutures and skin was closed with blake. Sterile dressings were applied and the patient tolerated the procedure well. Anthony ANDINO my physician advertising sales assistant, assisted in soft tissue retraction instrument management leg positioning the closure and will participate in the postoperative care of the patient. I attest to the content of the Intraoperative Record and any orders documented therein. Any exceptions are noted below.
--- NOTE | 2020-09-08 13:16 | Anesthesiology Progress Note ---
Date of Service September 08, 2020 Anesthesia Post Procedure Vital Signs Vital Signs: Temp Pulse Pulse Resp BP Pulse Ox 09/08/20 13:05 68 14 120/71 93 09/08/20 12:55 71 16 108/63 94 09/08/20 12:49 99.0 F 81 13 88/57 L 93 09/08/20 08:31 98.1 F 67 20 128/78 94 Transfer of Care Handoff Completed per policy Notes Mental Status: alert / awake / arousable and participated in evaluation Patient Amnestic to Procedure: Yes Nausea / Vomiting: adequately controlled Pain: adequately controlled Airway Patency, RR, SpO2: stable & adequate BP & HR: stable & adequate Hydration State: stable & adequate Neuraxial Anesthesia: was administered and sensory block is resolving Anesthetic Complications: no major complications apparent and Pt Satisfied with anesthetic care
--- NOTE | 2020-09-08 13:38 | XRay Report ---
XR knee RT 1 or 2V routine HISTORY: 64 years-old Female Surgical Post Op right knee total joint arthroplasty COMPARISON: None TECHNIQUE: 2 views of the right knee FINDINGS: Right knee total joint arthroplasty and patella resurfacing. Anterior midline skin blake are noted in addition to a surgical drainage catheter. Expected postoperative soft tissue swelling with deep ti ssue air. No acute fracture, alignment or unexpected opaque foreign body. IMPRESSION: Right knee total joint arthroplasty with expected postoperative changes. ACT 112: Negative or not required by law. The above report was generated using voice recognition software. It may contain grammatical, syntax o r spelling errors. Electronically signed by: Rohan Waldrop M.D. 09/08/2020 1:37 PM
[2020-09-08] MEDS ORDERED: METOCLOPRAMIDE HCL INJ 5 MG/ML 2 ML VIAL IV PRN (13:48)
[2020-09-08] MEDS ORDERED: bisacodyL 10 MG SUPP PR PRN (13:48)
[2020-09-08] MEDS ORDERED: HYDROmorphone INJ 0.5 MG/0.5 ML SYR IV PRN (13:48)
[2020-09-08] MEDS ORDERED: MAGNESIUM HYDROXIDE SUSP 30 ML UDC PO PRN (13:48)
[2020-09-08] MEDS ORDERED: NALOXONE HCL 0.4 MG/1 ML VIAL/CARP IV PRN (13:48)
[2020-09-08] MEDS: SODIUM CHLORIDE 0.9% 1000ML 1,000 ML IV SCH (14:24)
--- NOTE | 2020-09-08 14:39 | Consultation ---
Date of Consultation September 08, 2020 Assessment & Plan (1) Primary osteoarthritis of right knee: S/P R TKA by Dr. Covarrubias, POD #0 EBL 5 ml tolerated procedure well pain/wound management per ortho activity and therapy as directed by ortho Xarelto for VTE ppx per ortho encourage incentive spirometry monitor H&H, preop hemoglobin 14.4 (2) Pre-diabetes: Last A1c 6.1 on 08/15/2020 Currently not on any medication monitor fbs (3) Sleep apnea: CPAP @ bedtime, 12 cm H2O (4) Hypertension: Blood pressure controlled postoperatively On diltiazem, losartan and triamterene HCTZ Placed parameters on diltiazem and losartan Hold triamterene HCTZ until volume status reevaluated in a.m. (5) CKD (chronic kidney disease) stage 3, GFR 30-59 ml/min: baseline cr 1.0 monitor renal fxn avoid nephrotoxic agents (6) DVT prophylaxis: Xarelto Dispo: per primary PCP: Sonali Martins PA-C FULL CODE Pt was seen and examined in collaboration with Dr. Butts, please see addendum Starting 09/09/2020 patient be under the care of Dr. Michaels Thank you for this consultation. We will follow the patient with you during their hospital stay. You can reach a member of the [facility] Hospitalist Team 24/09 via hospitalist role on tiger text. Supervising Physician Co-Signing Physician Notes Patient is a 64-year-old female with history of hypertension, hyperlipidemia, hypothyroidism, CKD and other medical problems was seen and examined postop after having right total knee arthroplasty by . Patient had transient low blood pressure postoperatively which improved with IV fluids, also noted minimal hypoxia, saturating well on supplemental oxygen. Right knee pain at surgical site is controlled. Denies any chest pain, shortness of breath, dizziness, nausea, abdominal pain. On exam patient is obese, no apparent distress, normocephalic atraumatic, EOMI, lungs-normal breath sounds, clear to auscultation, S1-S2, no murmur, no pedal edema, abdomen soft, nontender, normal bowel sounds, right knee surgical site in dressing, alert, awake, oriented, grossly no focal deficit. Patient is consulted for postop medical management. On Xarelto for anticoagulation. Activity, wound care as per primary team. Renal function at baseline. Monitor renal function. Continue incentive spirometry. Continue bowel regimen to prevent constipation. Monitor CBC for postop anemia. Continue CPAP at bedtime for sleep apnea. I personally reviewed the record. Patient is interviewed and examined at bedside. Patient's care is coordinated with Neda Burkett PA-C. Please refer to the documentation above for details of patient's presentation and for discussion of other issues. History of Present Illness Requesting Physician: Dr. Covarrubias Reason for Consultation: Postop medical management Attending Physician: Harsha Covarrubias MD History of Present Illness This is a 64-year-old female who has significant past medical history of HTN, HLD, prediabetes, hypothyroidism, NEVAEH on CPAP, CKD stage III, RLS, GERD, depression who presents for elective right TKA by Dr. Covarrubias. She tolerated the procedure well. She had her left TKA done in December 2018 and states everything went very well. Currently she denies any pain but is currently under the effect of anesthesia. She is able to move her toes. She denies any fever, chills, sweats, lightheadedness, dizziness, chest pain, shortness of breath, cough, nausea, vomiting, abdominal pain, change in bowel or urinary habits prior to procedure. She did eat lunch and tolerated it well. is at bedside. She offers no concerns or complaints. She does have history of NEVAEH which she is compliant with her CPAP. She also is history of prediabetes with most recent A1c being 6.1. Allergies Allergy/AdvReac Type Severity Reaction Status Date / Time adhesive Allergy Mild Red skin Verified 09/08/20 08:15 (if bandaids on for long time) No Known Drug Allergies Allergy Unknown NONE Verified 09/08/20 08:15 Home Medications Medication Instructions Recorded Confirmed Type atorvastatin 20 mg PO PM 11/04/18 09/08/20 History citalopram 20 mg PO QAM 11/04/18 09/08/20 History diltiazem HCl 240 mg PO QAM 11/04/18 08/08/20 History latanoprost [Xalatan] 1 drp OPHTHALMIC (EYE) PM 11/04/18 09/08/20 History levothyroxine 75 mcg PO QAM 11/04/18 08/08/20 History losartan 100 mg PO QAM 11/04/18 09/08/20 History pantoprazole 40 mg PO QPM 11/04/18 09/08/20 History potassium chloride 20 meq PO QDL 11/04/18 09/08/20 History pregabalin [Lyrica] 50 mg PO BID 11/04/18 08/08/20 History triamterene-hydrochlorothiazid 1 tab PO QAM 11/04/18 09/08/20 History acetaminophen [Tylenol Extra 500 - 1,000 mg PO Q6H PRN 08/08/20 09/08/20 History Strength] lactobacillus combination no.4 3,000 mmu cells PO QAM 08/08/20 09/08/20 History [Probiotic] magnesium citrate 120 mg PO BID 08/08/20 09/08/20 History omega 0-jxa-spd-fish oil [Fish Oil] 2 cap PO QPM 08/08/20 09/08/20 History meloxicam 15 mg PO DAILY 09/08/20 09/08/20 History Patient History Medical History (Updated 09/08/20 @ 15:00 by Neda Burkett PA-C) CKD (chronic kidney disease) stage 3, GFR 30-59 ml/min Depression GERD (gastroesophageal reflux disease) controlled Glaucoma Hiatal hernia History of COVID-19 Dx 02/27/20 ([facility]) > symptoms at time of loss of taste/smell > taste/smell improved but not fully recovered Hyperlipidemia Hypertension Hypothyroidism Morbid obesity Osteoarthritis Pre-diabetes A1c 5.8% 11/2018 Sleep apnea CPAP (compliant) Surgical History Fusion of spine L5-S1 posterior lumbar spinal fusion/decompression (07/09/17): Grade view 1, Glidescope#3, ETT 7.5 at [facility] History of carpal tunnel release of both wrists History of cholecystectomy History of colonoscopy + polypectomy History of esophagogastroduodenoscopy (EGD) History of tooth extraction History of total knee replacement Left TKA (12/22/18): SAB at [facility] (x1 attempt) + PNB at [facility] Family History Father AAA (abdominal aortic aneurysm) Aunt AAA (abdominal aortic aneurysm) Sister AAA (abdominal aortic aneurysm) Mother Breast cancer Sister Breast cancer Fibromyalgia Social History (Updated 09/08/20 @ 14:53 by Neda Burkett PA-C) Smoking Status: Never smoker Second Hand Exposure: No; Do You Dip or Chew Tobacco: No; Hx Alcohol Use: No Hx Substance Use: No Preferred Language: Bengali Communication Ability: Effective Pony Rougher Required: No Beliefs That Will Affect Care: None marital status: Current Living Situation: Spouse current occupational status: retired Other Information That Helps Us Care for You: No Feels Safe at Home: Yes Safety Concerns: Feels Safe At This Time Assistive Devices: Glasses Review of Systems Review of Systems: All systems reviewed & are unremarkable except as noted in HPI & below Physical Exam Physical Exam: Constitutional: WD/WN, vitals as above, NAD, sitting up in bed, pleasant, conversing easily Head: Normocephalic, Atraumatic Eyes: PERRL, conjunctivae normal, anicteric sclerae ENMT: external ear and nose normal, oropharynx normal Neck: trachea midline, no thyromegaly normal visual inspection Respiratory: normal respiratory effort, lungs clear to auscultation, no wheeze, rales, rhonchi. Normal insp/exp effort, no accessory muscle use Cardiovascular: RRR, no murmur, no edema Vessels: no JVD or carotid bruit Chest: normal inspection of chest Abdomen: normal bowel sounds, soft, nontender, no hepatosplenomegaly Musculoskeletal: no cyanosis or clubbing, right lower extremity dressing CDI, Hemovac in place, NVI distally, AROM to b/l upper ext Skin: no rashes, warm and dry normal turgor Neurologic: PERRL, EOMI, accommodation nl, no face palsy, no dysarthria CN's II-XI intact bilaterally and moves all extremities Psychiatric: A+Ox3, euthymic affect Lymphatic: no cervical or axillary lymphadenopathy : deferred Results & Data ([facility]) Vital Signs (Past 12 Hours) Vital Signs Temp Pulse Pulse Resp BP Pulse Ox 09/08/20 14:18 36.9 C 89 18 149/84 H 91 09/08/20 14:00 65 16 116/76 90 09/08/20 13:25 60 14 123/68 94 09/08/20 13:15 36.9 C 62 16 127/76 93 09/08/20 13:05 68 14 120/71 93 09/08/20 12:55 71 16 108/63 94 09/08/20 12:49 37.2 C 81 13 88/57 L 93 09/08/20 08:31 36.7 C 67 20 128/78 94 Laboratory Results Preop labs 08/15/2020 H&H 14.4 and 43.0, WBC 5.01, platelet 257 Sodium 145, K3.9, chloride 107, BUN 20, creatinine 1.0, GFR 58.7 A1c 6.1 Diagnostic Findings Knee X-Ray 09/08/20 12:54 XR knee RT 1 or 2V routine HISTORY: 64 years-old Female Surgical Post Op right knee total joint arthroplasty COMPARISON: None TECHNIQUE: 2 views of the right knee FINDINGS: Right knee total joint arthroplasty and patella resurfacing. Anterior midline skin blake are noted in addition to a surgical drainage catheter. Expected postoperative soft tissue swelling with deep tissue air. No acute fracture, alignment or unexpected opaque foreign body. IMPRESSION: Right knee total joint arthroplasty with expected postoperative changes. ACT 112: Negative or not required by law. The above report was generated using voice recognition software. It may contain grammatical, syntax or spelling errors. Electronically signed by: Rohan Waldrop M.D. 09/08/2020 1:37 PM Medications Administered Medication List Acetaminophen (Acetaminophen 500 Mg Tab) 1,000 mg PO PREOP TYLER Stop: 09/08/20 18:00 Last Admin: 09/08/20 08:47 Dose: 1,000 mg Documented by: [id number] Celecoxib (Celebrex 200 Mg Cap) 200 mg PO PREOP TYLER Stop: 09/08/20 18:00 Last Admin: 09/08/20 08:47 Dose: 200 mg Documented by: [id number] Dexamethasone (Dexamethasone 4 Mg Tab) 8 mg PO PREOP TYLER Stop: 09/08/20 18:00 Last Admin: 09/08/20 08:48 Dose: 8 mg Documented by: [id number] Famotidine (Famotidine 20 Mg Tab) 20 mg PO PREOP TYLER Stop: 09/08/20 18:00 Last Admin: 09/08/20 08:47 Dose: 20 mg Documented by: [id number] Gabapentin (Gabapentin 300 Mg Cap) 300 mg PO PREOP TYLER Stop: 09/08/20 18:00 Last Admin: 09/08/20 08:47 Dose: 300 mg Documented by: [id number] Lactated Ringer's (Lr) 1,000 mls @ 15 mls/hr IV .Q24H TYLER Stop: 09/08/20 18:00 Last Infusion: 09/08/20 10:34 Dose: 0 mls/hr Documented by: [id number] Admin: 09/08/20 08:46 Dose: 15 mls/hr Documented by: [id number] Cefazolin Sodium (Ancef 2000mg) 2,000 mg in 15 mls @ 3.75 mls/min IV PREOP TYLER; Protocol Stop: 09/08/20 18:00 Last Admin: 09/08/20 10:34 Dose: 3.75 mls/min Documented by: [id number] Tranexamic Acid (Tranexamic Acid / 0.7% Nacl) 1,000 mg in 100 mls @ 600 mls/hr IV TODAY@0600 [facility] Stop: 09/08/20 18:00 Last Admin: 09/08/20 10:07 Dose: 600 mls/hr Documented by: [id number] Tranexamic Acid (Tranexamic Acid / 0.7% Nacl) 1,000 mg in 100 mls @ 600 mls/hr IV TODAY@0600 [facility] Stop: 09/08/20 18:00 Last Admin: 09/08/20 12:23 Dose: 600 mls/hr Documented by: [id number] Sodium Chloride (Nss 1000ml) 1,000 mls @ 100 mls/hr IV .Q10H [facility] Stop: 09/09/20 06:00 Last Admin: 09/08/20 14:24 Dose: 100 mls/hr Documented by: [id number] Metoclopramide HCl (Metoclopramide Hcl 10 Mg Tablet) 10 mg PO PREOP TYLER Stop: 09/08/20 18:00 Last Admin: 09/08/20 08:46 Dose: 10 mg Documented by: [id number] Discontinued Medications Ropivacaine 150 mg/Bupivacaine HCl 20 ml/Epinephrine HCl 0.15 mg/Ketorolac Tromethamine 30 mg/Dexamethasone 4 mg/ Ketamine HCl 10 mg/ Clonidine HCl 100 mcg/ Sodium Chloride 88.35 mls @ 0 mls/hr INSTIL TODAY@0600 [facility]; Protocol Stop: 09/08/20 06:01 Last Admin: 09/08/20 11:28 Dose: 88.35 mls/hr Documented by: [id number] Miscellaneous (Ortho Joint Anesthetic ) Confirm Administered Dose 1 ea .ROUTE .K-MED ONE Stop: 09/08/20 10:28 Last Admin: 09/08/20 12:32 Dose: Not Given Documented by: [id number] ECG Rate (beats per minute): 63
[2020-09-08] MEDS: ACETAMINOPHEN 500 MG TAB PO SCH (16:31)
[2020-09-08] MEDS: ceFAZolin 2000MG 2,000 MG/15 ML SYR IV SCH (17:56)
[2020-09-08] MEDS: DOCUSATE SODIUM 100 MG CAP PO SCH (20:59)
[2020-09-08] MEDS: SENNA 8.6 MG TAB PO SCH (20:59)
[2020-09-08] MEDS: oxyCODONE HCL IR 5 MG TAB (IMMEDIATE RELEASE) PO PRN (20:59)
[2020-09-08] MEDS: PANTOprazole 40 MG TAB PO SCH (20:59)
[2020-09-08] MEDS: PREGABALIN 50 MG CAP PO SCH (20:59)
[2020-09-08] MEDS: ATORVASTATIN 20 MG TAB PO SCH (20:59)
[2020-09-08] MEDS: LATANOPROST 0.005% OP SOLN 2.5 ML BTL OP SCH (20:59)
[2020-09-08] MEDS ORDERED: NON-FORMULARY MEDICATION (Magnesium Citrate 100 mg Tablet) PO SCH (21:00)
[2020-09-09] MEDS: SODIUM CHLORIDE 0.9% 1000ML 1,000 ML IV SCH (00:27)
[2020-09-09] MEDS: ACETAMINOPHEN 500 MG TAB PO SCH ×4 (00:27→23:17)
[2020-09-09] MEDS: ceFAZolin 2000MG 2,000 MG/15 ML SYR IV SCH (02:06)
[2020-09-09] MEDS: LEVOTHYROXINE SODIUM 75 MCG TABLET PO SCH (05:34)
--- NOTE | 2020-09-09 07:28 | Orthopedic Progress Note ---
Date of Service September 09, 2020 Assessment & Plan (1) S/P total knee arthroplasty: POD#1 Right TKA -PT/OT -Pain management as written -DVT prophylaxis-SCDs, TEDs, Xarelto 10mg daily -AM labs- pending -D/C planning-home with HHPT when stable, likely tomorrow Admission and Anticipated Discharge Date Admission Date: September 08, 2020 Subjective Patient is POD#1 right TKA. She is having mild to moderate pain this morning. No other complaints. Denies chest pain, sob, dizziness, fever, chills, n/v/d. Review of Systems Review of Systems: All systems reviewed & are unremarkable except as noted in Subjective Physical Exam Physical Exam: Dressing to right knee is c/d/i. Toes mobile with good dorsiflexion. No calf tenderness. Distally n/v status and sensation intact Constitutional: well developed and well nourished; no acute distress Results & Data ([facility]) Vital Signs (Past 12 Hours) Vital Signs Temp Pulse Resp BP Pulse Ox 09/09/20 05:35 36.5 C 87 14 128/67 95 09/09/20 02:33 36.8 C 73 16 130/66 93 09/08/20 22:03 37.1 C 76 16 115/56 L 91 (1) S/P total knee arthroplasty Laterality: right Qualified Code(s): Z96.651 - Presence of right artificial knee joint
[2020-09-09 07:56] LABS: Hematocrit (blood only) 36.5 % (37-47); Hemoglobin 12.6 g/dL (12.0-16.0); Mean Corpuscular Hemoglobin 29.2 pg (25-34); Mean Corpuscular Hgb Conc 34.5 g/dL (32-36); Mean Corpuscular Volume 84.7 fL (80-100); Mean Platelet Volume 10.6 fL (7.4-10.4); Platelet Count 260 K/uL (130-400); RDW Coefficient of Variation 13.8 % (11.5-14.5); RDW Standard Deviation 43.1 fL (36.4-46.3); Red Blood Count 4.31 M/uL (4.2-5.4); White Blood Count 16.46 K/uL (4.8-10.8)
[2020-09-09] MEDS: DOCUSATE SODIUM 100 MG CAP PO SCH ×2 (08:31→21:35)
[2020-09-09] MEDS: CITALOPRAM 20 MG TAB PO SCH (08:31)
[2020-09-09] MEDS: ADVANCED PROBIOTIC 1250 MG CAPSULE PO SCH (08:31)
[2020-09-09] MEDS: dilTIAZem HCL 240 MG CAPCR PO SCH (08:31)
[2020-09-09] MEDS: oxyCODONE HCL IR 5 MG TAB (IMMEDIATE RELEASE) PO PRN ×3 (08:32→21:49)
[2020-09-09] MEDS: MULTIVITAMIN TAB PO SCH (08:32)
[2020-09-09] MEDS: RIVAROXABAN 10 MG TABLET PO SCH (08:32)
[2020-09-09] MEDS: PREGABALIN 50 MG CAP PO SCH ×2 (08:32→21:49)
[2020-09-09 08:33] LABS: BUN Creatinine Ratio 25.8 (10-20); Calcium 8.4 mg/dl (8.5-10.1); Creatinine Clr Calc Pharmacy 51.8 ml/min; Est GFR (African American) 50.9 ml/min; Est GFR (Non-African American) 43.9 ml/min; Potassium 3.4 mmol/L (3.5-5.1)
[2020-09-09] MEDS ORDERED: LOSARTAN POTASSIUM 50 MG TAB PO SCH (09:00)
[2020-09-09] MEDS ORDERED: TRIAMTERENE/HCTZ 37.5/25MG TAB PO SCH (09:00)
[2020-09-09] MEDS ORDERED: POTASSIUM CHLORIDE 10 MEQ TABCR PO STA (10:48)
[2020-09-09] MEDS ORDERED: SODIUM CHLORIDE 0.9% 1000ML 1,000 ML IV SCH (11:00)
[2020-09-09] MEDS ORDERED: POTASSIUM CHLORIDE CRTAB 20 MEQ TABCR PO SCH (11:30)
--- NOTE | 2020-09-09 15:07 | Hospitalist Progress Note ---
Date of Service September 09, 2020 Assessment & Plan (1) Primary osteoarthritis of right knee: S/P R TKA by Dr. Covarrubias, POD #1 tolerated procedure well Postsurgical pain well controlled. Continue physical therapy Xarelto for VTE ppx per ortho encourage incentive spirometry H&H stable postoperatively Acute renal failure: Possible secondary to postop status/volume loss Order to hold losartan, other diuretics her triamterene/HCTZ was already kept on hold We will give gentle IV fluids Repeat labs in a.m. Hypokalemia: Given oral replacement, repeat lab (2) Pre-diabetes: Last A1c 6.1 on 08/15/2020 Currently not on any medication (3) Sleep apnea: CPAP @ bedtime, 12 cm H2O (4) Hypertension: Blood pressure controlled postoperatively On diltiazem, losartan and triamterene HCTZ kept on hold renal failure Will order as needed IV hydralazine for SBP more than 160 (5) CKD (chronic kidney disease) stage 3, GFR 30-59 ml/min: baseline cr 1.0 Acute renal failure with creatinine elevated 1.27 Given IV fluids hold diuretics as outlined above Repeat BMP in a.m. (6) DVT prophylaxis: Xarelto Dispo: per primary PCP: Sonail Martins PA-C FULL CODE Thank you for this consultation. We will follow the patient with you during their hospital stay. You can reach a member of the [facility] Hospitalist Team 24/09 via hospitalist role on tiger text. Admission and Anticipated Discharge Date Admission Date: September 08, 2020 Subjective Follow-up consult visit for right knee surgery: Patient sitting up on chair, states pain is well controlled on her right knee,, already walked on the hallway. No fever or chills, has not had any bowel movements No complaint of shortness of breath, no dyspnea on exertion Review of Systems Review of Systems: All systems reviewed & are unremarkable except as noted in Subjective Physical Exam Constitutional: WD/WN, vitals as above Eyes: PERRL, conjunctivae normal, anicteric sclerae ENMT: external ear and nose normal, oropharynx normal Neck: trachea midline, no thyromegaly Respiratory: normal respiratory effort, lungs clear to auscultation Cardiovascular: RRR, no murmur, no edema Gastrointestinal (Abdomen): Percussion/Palpation: abdomen soft; abdomen nontender Musculoskeletal: Knee: + surgical drain present (status post right knee surgery surgical drain present) Skin: no rashes, warm and dry Neurologic: PERRL, EOMI, accommodation nl, no face palsy, no dysarthria Psychiatric: A+Ox3, euthymic affect Results & Data Results & Data ([facility]) Vital Signs (Past 12 Hours) Vital Signs Temp Pulse Resp BP Pulse Ox 09/09/20 14:54 36.6 C 62 18 138/84 93 09/09/20 09:00 36.7 C 62 20 137/90 94 09/09/20 05:35 36.5 C 87 14 128/67 95
[2020-09-09] MEDS ORDERED: hydrALAZINE HCL 20 MG/ML VIAL IV PRN (15:26)
[2020-09-09] MEDS: ATORVASTATIN 20 MG TAB PO SCH (21:34)
[2020-09-09] MEDS: LATANOPROST 0.005% OP SOLN 2.5 ML BTL OP SCH (21:35)
[2020-09-09] MEDS: SENNA 8.6 MG TAB PO SCH (21:36)
[2020-09-09] MEDS: PANTOprazole 40 MG TAB PO SCH (21:49)
[2020-09-10] MEDS: LEVOTHYROXINE SODIUM 75 MCG TABLET PO SCH (06:28)
[2020-09-10 06:29] LABS: BUN Creatinine Ratio 32.4 (10-20); Calcium 7.9 mg/dl (8.5-10.1); Creatinine Clr Calc Pharmacy 69.2 ml/min; Est GFR (African American) 72.3 ml/min; Est GFR (Non-African American) 62.4 ml/min; Potassium 3.8 mmol/L (3.5-5.1)
[2020-09-10] MEDS: oxyCODONE HCL IR 5 MG TAB (IMMEDIATE RELEASE) PO PRN (07:27)
[2020-09-10] MEDS: ACETAMINOPHEN 500 MG TAB PO SCH (07:27)
--- NOTE | 2020-09-10 08:01 | Orthopedic Progress Note ---
Date of Service September 10, 2020 Assessment & Plan (1) S/P total knee arthroplasty: POD#2 Right TKA -PT/OT -Pain management as written -DVT prophylaxis-SCDs, TEDs, Xarelto 10mg daily -AM labs-kidney function improved, potassium improved -D/C planning-home with HHPT when stable, plan on discharge today Admission and Anticipated Discharge Date Admission Date: September 08, 2020 Subjective POD#2 right TKA. Doing well this morning, pain well controlled. No current complaints. Denies chest pain, sob, dizziness, n/v/d. Review of Systems Review of Systems: All systems reviewed & are unremarkable except as noted in Subjective Physical Exam Physical Exam: right knee incision is c/d/i. Dressing to hemovac site c/d/i. Toes mobile with good dorsiflexion. No calf tenderness. Distally n/v status and sensation intact Constitutional: well developed and well nourished; no acute distress Results & Data ([facility]) Vital Signs (Past 12 Hours) Vital Signs Temp Pulse Resp BP Pulse Ox 09/10/20 06:08 36.5 C 72 16 126/84 92 09/09/20 22:34 37.0 C 55 L 16 149/90 H 94 (1) S/P total knee arthroplasty Laterality: right Qualified Code(s): Z96.651 - Presence of right artificial knee joint
[2020-09-10] MEDS: CITALOPRAM 20 MG TAB PO SCH (08:35)
[2020-09-10] MEDS: ADVANCED PROBIOTIC 1250 MG CAPSULE PO SCH (08:35)
[2020-09-10] MEDS: DOCUSATE SODIUM 100 MG CAP PO SCH (08:35)
[2020-09-10] MEDS: dilTIAZem HCL 240 MG CAPCR PO SCH (08:35)
[2020-09-10] MEDS: RIVAROXABAN 10 MG TABLET PO SCH (08:35)
[2020-09-10] MEDS: PREGABALIN 50 MG CAP PO SCH (08:35)
[2020-09-10] MEDS: MULTIVITAMIN TAB PO SCH (08:35)
--- NOTE | 2020-09-11 09:15 | Discharge Summary ---
Date of Service September 11, 2020 Admission HPI Per Admitting Provider 64 year old female with PMHx significant for HTN, high cholesterol, hypothyroid, NEVAEH, anxiety with ongoing right knee pain. Pain is interfering with her daily and leisure activity. Previous left knee replacement and had done well. She has failed conservative management including injections. She would like to proceed with right knee replacement. Patient denies headaches, sweats, fevers, chills, double vision, blurred vision, cough, sore throat, dysphagia, chest pain, sob, wheezing, n/v/d/c, numbness, tingling, fatigue, urinary symptoms, mood disorders. ROS positive for right knee pain and stiffness. Admission Exam Per Admitting Provider Constitutional: well developed and well nourished; no acute distress Eyes: PERRL, conjunctivae normal, anicteric sclerae ENMT: external ear and nose normal, oropharynx normal Neck: trachea midline, no thyromegaly Respiratory: normal respiratory effort, lungs clear to auscultation Cardiovascular: RRR, no murmur, no edema Musculoskeletal: Right knee: Varus alignment. Tenderness medial joint line. Mild crepitation. Positive Dayanna's. Stable to valgus and varus. ROM 0-125 degrees. Skin: no rashes, warm and dry Neurologic: patellar DTR's 2+ bilat, sensation intact Psychiatric: A+Ox3, euthymic affect Principal Diagnosis Right knee osteoarthritis Discharge Exam Constitutional well developed and well nourished; no acute distress Eyes PERRL, conjunctivae normal, anicteric sclerae ENMT external ear and nose normal, oropharynx normal Neck trachea midline, no thyromegaly Respiratory normal respiratory effort, lungs clear to auscultation Cardiovascular RRR, no murmur, no edema Skin no rashes, warm and dry Neurologic patellar DTR's 2+ bilat, sensation intact Psychiatric A+Ox3, euthymic affect Discharge Data Allergies Allergy/AdvReac Type Severity Reaction Status Date / Time adhesive Allergy Mild Red skin Verified 09/08/20 08:15 (if bandaids on for long time) No Known Drug Allergies Allergy Unknown NONE Verified 09/08/20 08:15 Consultations 09/05/20 13:45 Consult Hospitalist Routine Procedures Performed Operation Date: 09/08/20 10:10 Actual Procedures p Right Total Knee Arthroplasty(Right) - Harsha Covarrubias MD Ordered Studies 09/08/20 05:00 US - OR guided needle placemen Routine Hospital Course (1) S/P total knee arthroplasty: Patient presented for same day admission following right total knee arthroplasty on 09/08/20. She tolerated procedure well. The Patient had an uneventful hospital course. Post-operatively, her activity was progressed and well tolerated. They participated in PT with ambulation distance of 250 feet. ROM of operative knee reached 92 degrees. Labs remained stable- lowest hemoglobin recorded: 12.4. Did have some hypokalemia and elevated creatinine on POD#1, resolved by POD#2. Dr. Butts of medical service was consulted for medical management during admission. Pain controlled on oral medications. Please refer to daily progress notes and PT notes for complete details. After exam on 09/10/20, patient was felt to be stable for discharge home with home health PT. Patient will f/u in the office in about 2 weeks for further evaluation including x-rays and incision check, sooner if having any issues or concerns. POD#2 Right TKA -PT/OT -Pain management as written -DVT prophylaxis-SCDs, TEDs, Xarelto 10mg daily -AM labs-kidney function improved, potassium improved -D/C planning-home with HHPT when stable, plan on discharge today Lab Results 09/08/20 09/08/20 09/09/20 Range/Units 08:10 08:10 07:34 WBC 16.46 H (4.8-10.8) K/uL RBC 4.31 (4.2-5.4) M/uL Hgb 12.6 (12.0-16.0) g/dL Hct 36.5 L (37-47) % MCV 84.7 (80-100) fL MCH 29.2 (25-34) pg MCHC 34.5 (32-36) g/dL RDW Std Deviation 43.1 (36.4-46.3) fL RDW Coeff of Earline 13.8 (11.5-14.5) % Plt Count 260 (130-400) K/uL MPV 10.6 H (7.4-10.4) fL Sodium (136-145) mmol/L Potassium (3.5-5.1) mmol/L Chloride (98-107) mmol/L Carbon Dioxide (21-32) mmol/L Anion Gap (3-11) BUN (7-18) mg/dl Creatinine (0.6-1.2) mg/dl Est Cr Clr Drug Dosing ml/min Est GFR ( Amer) ml/min Est GFR (Non-Af Amer) ml/min BUN/Creatinine Ratio (10-20) Glucose (70-99) mg/dl Calcium (8.5-10.1) mg/dl COVID-19 Eval Order Covid19 IDNow atMMNC SARS-CoV-2, RNA, NAAT NEGATIVE (NEGATIVE) 09/09/20 09/10/20 Range/Units 07:34 05:35 WBC (4.8-10.8) K/uL RBC (4.2-5.4) M/uL Hgb (12.0-16.0) g/dL Hct (37-47) % MCV (80-100) fL MCH (25-34) pg MCHC (32-36) g/dL RDW Std Deviation (36.4-46.3) fL RDW Coeff of Earline (11.5-14.5) % Plt Count (130-400) K/uL MPV (7.4-10.4) fL Sodium 140 140 (136-145) mmol/L Potassium 3.4 L 3.8 (3.5-5.1) mmol/L Chloride 109 H 112 H (98-107) mmol/L Carbon Dioxide 22 26 (21-32) mmol/L Anion Gap 8.0 2.0 L (3-11) BUN 33 H 31 H (7-18) mg/dl Creatinine 1.27 H 0.95 D (0.6-1.2) mg/dl Est Cr Clr Drug Dosing 51.8 69.2 ml/min Est GFR ( Amer) 50.9 72.3 ml/min Est GFR (Non-Af Amer) 43.9 62.4 ml/min BUN/Creatinine Ratio 25.8 H 32.4 H (10-20) Glucose 138 H 139 H (70-99) mg/dl Calcium 8.4 L 7.9 L (8.5-10.1) mg/dl COVID-19 Eval Order SARS-CoV-2, RNA, NAAT (NEGATIVE) Total Time Total Time Spent Total Time Spent (In Minutes): 20 Discharge Plan Discharge Items Patient Disposition: Home - Home Health Services Reason For Visit: Unilateral Primary Osteoarthritis Discharge Diagnosis: Right knee osteoarthritis Activity: Per Instructions section Non-emergency contact: Surgeon Call non-emergency contact if: you have any medication questions, your pain is worsening, your pain is concerning for you, you have a fever, your temperature is above 101, your wound has increased redness and your wound has increased drainage Follow-up/Referrals: Sonali Martins PA-C [Primary Care Provider] - Diet: Regular Addtl Attending Provider Instructions: ACTIVITY RECOMMENDATIONS: SELF CARE INSTRUCTIONS AFTER TOTAL KNEE REPLACEMENT A. You may need to continue a physical therapy program after discharge from the hospital. There are several options available to you. Your doctor will assist you in selecting the best one for you. 1. An out-patient facility 2 to 3 times a week for therapy or home therapy. 2. Continue working on all exercises taught to you in the hospital. Your goals should be to increase bending of your knee to 90 degrees and beyond and to fully straighten your knee. B. You may progress at your own pace from walking with a walker or crutches to a cane; then to no assistive devices. C. Make walking a part of your daily routine. Be up as much as comfortable with rest periods throughout the day. Rest with leg elevation is very important. Use the ice wrap frequently for the first 3-4 weeks. D. There are no restrictions on activities. You may ride in a car, shop, participate in rattling machine tender and all social activities. E. Wear the long elastic stockings (ALFREDA hose) 20 hours a day for 2 weeks after surgery. They can be removed several times a day for laundering and for a bath. F. You may shower, no tub baths until cleared by your doctor. SPECIAL CARE INSTRUCTIONS: VERY IMPORTANT TO READ AND REVIEW A. There are a few signs you need to watch for after you are home. Call [facility] if you notice any of the followin. Increased severe knee pain. Some pain is expected especially when you exercise. 2. Increased swelling in your leg or knee; pain or swelling of the calf muscle in either lower leg. 3. Any fluid drainage from the incision. 4. Shortness of breath or chest pain. B. Please call [facility] at if you have any concerns or questions about your operation or recovery. The doctor or his nurse will return your call promptly. C. You must take antibiotics before dental work, bladder, bowel or other surgery. Your doctor will provide you with a permanent care to carry describing this precaution. IMPORTANT: * REMEMBER TO TAKE ASPIRIN, 81 MG, TWICE DAILY FOR 4 WEEKS UNLESS OTHERWISE DIRECTED. THIS IS YOUR BLOOD THINNER. * HIGH RISK PATIENTS MAY BE PRESCRIBED A STRONGER BLOOD THINNER. THIS WILL BE PROVIDED AT DISCHARGE. * CALL IF INCREASED PAIN, REDNESS, DRAINAGE OR FEVER GREATER THAT 101. * WEAR ALFREDA HOSE 20 HOURS PER DAY FOR 2 WEEKS. * CHANGE DRESSING DAILY. KEEP WOUND COVERED WITH A DRESSING UNTIL SEEN BACK IN THE OFFICE. YOU MAY USE 4X4 GAUZE, TAPE OR AN ACEWRAP TO KEEP DRESSING IN PLACE. . IF INCISION IS LEAKING THROUGH DRESSING, CALL THE OFFICE . FOLLOW UP VISIT: If appointment is not already scheduled: Please call [facility] to make a follow-up appointment for 2 weeks after your surgery at . Stand-Alone Forms: [facility], Opioid Pain Management, Smoking Cessation Medications and DC Order Prescriptions: New acetaminophen [Tylenol Extra Strength] 500 mg Tablet 1,000 mg PO Q8H Qty: 60 RF: 0 oxycodone 5 mg Tablet 5 - 10 mg PO .Q4h-6h MDD 6 PRN (Reason: pain) Qty: 30 RF: 0 Xarelto 10 mg Tablet 10 mg PO DAILY Qty: 30 RF: 0 Continued latanoprost [Xalatan] 0.005 % Drops 1 drp OPHTHALMIC (EYE) PM RF: 0 atorvastatin 20 mg Tablet 20 mg PO PM RF: 0 diltiazem HCl 240 mg Capsule,Extended Release 24 Hr 240 mg PO QAM RF: 0 levothyroxine 75 mcg Tablet 75 mcg PO QAM RF: 0 citalopram 20 mg Tablet 20 mg PO QAM RF: 0 pantoprazole 40 mg Tablet,Delayed Release (Dr/Ec) 40 mg PO QPM RF: 0 triamterene-hydrochlorothiazid 37.5-25 mg Tablet 1 tab PO QAM RF: 0 losartan 100 mg Tablet 100 mg PO QAM RF: 0 pregabalin [Lyrica] 50 mg Capsule 50 mg PO BID RF: 0 potassium chloride 20 mEq Tablet Extended Release 20 meq PO QDL RF: 0 Probiotic 3 billion cell Capsule 3,000 mmu cells PO QAM RF: 0 magnesium citrate 100 mg Tablet 120 mg PO BID RF: 0 Discontinued omega 9-epe-pfc-fish oil [Fish Oil] 1,200 (144-216) mg Capsule 2 cap PO QPM RF: 0 acetaminophen [Tylenol Extra Strength] 500 mg Capsule 500 - 1,000 mg PO Q6H PRN (Reason: Pain) RF: 0 meloxicam 15 mg Tablet 15 mg PO DAILY RF: 0 Discharge Orders: Discharge Order (Routine); Ordered 09/10/20 Ordered By: Leeroy Sheffield Admission Data Admit Date/Time: 09/08/20 12:54 Attending Provider: Harsha Covarrubias Admit Provider: Harsha Covarrubias Primary Care Provider: Sonali Martins Other Providers: Rosalva Modi Other Interventions: Discharge Summary Assessment (RN) Last Done: 09/10/20 09:08
== END 2020-09-10 11:33 | disposition home health service (06) ==
LOC: ASU 07:49 → 3E 07:49

== ENCOUNTER 2025-02-08 07:39 | Inpatient (IN) ==
--- NOTE | 2024-12-28 10:05 | PAT Medication Instructions ---
Medication Instructions Date of Service December 28, 2024 Home Medications atorvastatin 20 mg tablet 20 mg PO PM citalopram 20 mg tablet 20 mg PO QAM diltiazem HCl 240 mg capsule,24 hr,extended release 240 mg PO QAM levothyroxine 75 mcg tablet 75 mcg PO QAM losartan 100 mg tablet 100 mg PO QAM pantoprazole 40 mg tablet,delayed release 40 mg PO QPM potassium chloride 20 mEq tablet,extended release 20 meq PO QDL pregabalin 50 mg capsule (Lyrica) 50 mg PO BID triamterene 37.5 mg-hydrochlorothiazide 25 mg tablet 1 tab PO QAM meloxicam 15 mg tablet 15 mg PO QAM cholecalciferol (vitamin D3) 50 mcg (2,000 unit) capsule 50 mcg PO DAILY omega 9-abv-vod-fish oil 1,200 mg (144 mg-216 mg) capsule (Fish Oil) 2 cap PO DAILY MEDICATION INSTRUCTIONS: ASK your surgeon for instructions meloxicam 15 mg tablet 15 mg PO QAM STOP taking 2 weeks before surgery omega 2-hov-aao-fish oil 1,200 mg (144 mg-216 mg) capsule (Fish Oil) 2 cap PO DAILY DO NOT take the morning of surgery losartan 100 mg tablet 100 mg PO QAM potassium chloride 20 mEq tablet,extended release 20 meq PO QDL triamterene 37.5 mg-hydrochlorothiazide 25 mg tablet 1 tab PO QAM cholecalciferol (vitamin D3) 50 mcg (2,000 unit) capsule 50 mcg PO DAILY Take morning of surgery With a small sip of water, OTHERWISE NOTHING TO EAT OR DRINK AFTER MIDNIGHT: citalopram 20 mg tablet 20 mg PO QAM diltiazem HCl 240 mg capsule,24 hr,extended release 240 mg PO QAM levothyroxine 75 mcg tablet 75 mcg PO QAM pregabalin 50 mg capsule (Lyrica) 50 mg PO BID Take evening before surgery pantoprazole 40 mg tablet,delayed release 40 mg PO QPM atorvastatin 20 mg tablet 20 mg PO PM pregabalin 50 mg capsule (Lyrica) 50 mg PO BID Other Notes If you have any questions please call us at [phone] or [phone] or [phone] or [phone]
--- NOTE | 2025-01-04 12:07 | Anesthesiology Consultation ---
Date of Service January 04, 2025 Assessment & Plan (1) Encounter for pre-operative examination: - awaiting surgeon ordered medical clearance, Sonali Martins 01/27. If patient is cleared by PCP, she is acceptable to proceed. - check BSG am DOS. Chart Review Chart Review: Patient seen in Pre Admission Testing Teaching & Discussion Pre-Anesthesia Teaching/Discussion Notes: Instructed NPO after midnight before surgery, except medications with 15 cc of water. Medication instructions provided according to the PAT guidelines. History Surgery Operation Date: 02/08/25 09:45 Proposed Procedures p T12-L1 Laminectony with Discectomy Possible T12 to L1 Fusion - Israel Brennan, Height/Weight Height: 5 ft 3 in Weight: 113.1 kg Allergies Allergy/AdvReac Type Severity Reaction Status Date / Time adhesive Allergy Mild Red skin Verified 12/28/24 07:32 (if bandaids on for long time) No Known Drug Allergies Allergy Unknown NONE Verified 12/28/24 07:32 Medications Home Medications Medication Instructions Recorded Confirmed Last Taken atorvastatin 20 mg tablet 20 mg PO PM 11/04/18 12/28/24 09/07/20 21:00 citalopram 20 mg tablet 20 mg PO QAM 11/04/18 12/28/24 09/08/20 07:00 diltiazem HCl 240 mg capsule,24 240 mg PO QAM 11/04/18 12/28/24 09/08/20 07:00 hr,extended release levothyroxine 75 mcg tablet 75 mcg PO QAM 11/04/18 12/28/24 09/08/20 07:00 losartan 100 mg tablet 100 mg PO QAM 11/04/18 12/28/24 09/07/20 08:30 pantoprazole 40 mg tablet,delayed 40 mg PO QPM 11/04/18 12/28/24 09/07/20 21:00 release potassium chloride 20 mEq 20 meq PO QDL 11/04/18 12/28/24 09/07/20 12:00 tablet,extended release pregabalin 50 mg capsule (Lyrica) 50 mg PO BID 11/04/18 12/28/24 09/08/20 07:00 triamterene 37.5 1 tab PO QAM 11/04/18 12/28/24 09/07/20 09:00 mg-hydrochlorothiazide 25 mg tablet meloxicam 15 mg tablet 15 mg PO QAM 07/11/21 12/28/24 Unknown cholecalciferol (vitamin D3) 50 50 mcg PO DAILY 07/21/24 12/28/24 Unknown mcg (2,000 unit) capsule omega 9-cuf-cvo-fish oil 1,200 mg 2 cap PO DAILY 12/28/24 12/28/24 Unknown (144 mg-216 mg) capsule (Fish Oil) Past Medical History Medical History (Updated 01/04/25 @ 12:21 by Kylie Espitia PA-C) CKD (chronic kidney disease), stage III Depression Fusion of spine L5-S1 posterior lumbar spinal fusion/decompression (07/09/17): Grade view 1, Glidescope#3, ETT 7.5 at [facility] GERD (gastroesophageal reflux disease) controlled, stable per pt Glaucoma Hiatal hernia History of colon polyps History of COVID-19 Dx 02/27/20 ([facility]) > symptoms at time of loss of taste/smell > taste/smell improved but not fully recovered 2021 History of postoperative nausea and vomiting HLD (hyperlipidemia) HTN (hypertension) controlled, stable per pt Hypothyroidism Osteoarthritis Pre-diabetes Sleep apnea CPAP-compliant Patient denies h/o stroke, seizures, heart attack, heart failure, blood clots/DVTs or blood transfusions. Exercise / Class Metabolic Activity III < 4 Walking/Shop/Light housework (denies chest discomfort or shortness of breath with usual activities) Past Family History Family History Father AAA (abdominal aortic aneurysm) Aunt AAA (abdominal aortic aneurysm) Sister AAA (abdominal aortic aneurysm) Mother Breast cancer Sister Breast cancer Fibromyalgia Past Surgical History Surgical History History of carpal tunnel release of both wrists History of esophagogastroduodenoscopy (EGD) History of total knee replacement Left TKA (12/22/18): SAB at L3 (x1 attempt) + PNB at [facility] History of total right knee replacement 2020 Hx of cholecystectomy Hx of colonoscopy Hx of tooth extraction Past Anesthesia History No Hx of Anesthesia Complications and No Family Hx of Anesthesia Complications History of PONV History of PONV and Hx of Motion Sickness Social History Smoking Status: Never smoker Do You Dip or Chew Tobacco: No Hx Alcohol Use: Yes Alcohol type: hard liquor alcohol intake frequency: holidays/special occasions only Hx Substance Use: No substance use type: does not use Review of Systems Patient denies chest pain, shortness of breath, dyspnea on exertion, fever, chills, cough, wheezing, or palpitations. Physical Exam Vital Signs Vitals BP 140/84 P 65 TEMP 97.7 SP02 94% on RA RESP 18 Physical Patient resting comfortably in chair in no acute distress, alert and oriented, responding appropriately throughout visit Full cervical extension range of motion without pain TMD 3.5 finger breadths Mallampati Score 3 Dentition: intact, denies chipped or loose teeth, caps/crowns, implants or bridges Lungs: normal respiratory effort. Good air movement, clear throughout to auscultation, no adventitious breath sounds Cardiac: regular rate and rhythm, no murmurs noted Carotid arteries: negative bruit bilat Lab Results Anesthesia Preop Results Results Anesthesia Widget: WBC 6.71 K/ul (4.8-10.8) 01/04/25 Hgb 15.0 g/dl (12.0-16.0) 01/04/25 Hct 46.1 % (37.0-47.0) 01/04/25 Plt 282 K/uL (130-400) 01/04/25 Na 141 mmol/L (136-145) 01/04/25 K 4.7 mmol/L (3.5-5.1) 01/04/25 Cl 104 mmol/L (98-107) 01/04/25 CO2 30 mmol/L (21-32) 01/04/25 BUN 27 mg/dl (6-23) H 01/04/25 Creat 1.11 mg/dl (0.6-1.2) 01/04/25 Glucose Level 93 mg/dl (70-99(Fasting)) 01/04/25 PT 11.0 Seconds (9.0-12.0) 01/05/25 PTT 25 Seconds (21-31) 01/05/25 INR 1.0 (0.9-1.1) 01/05/25 Urine Color Yellow 01/04/25 Urine Appearance Clear (Clear) 01/04/25 Urine pH 7.0 (4.5-7.5) 01/04/25 Urine Specific [place] 1.014 (1.000-1.030) 01/04/25 Urine Protein Negative (Negative) 01/04/25 Urine Glucose (UA) Negative (Negative) 01/04/25 Urine Ketones Negative (Negative) 01/04/25 Urine Blood Negative (Negative) 01/04/25 Urine Nitrite Negative (Negative) 01/04/25 Urine Bilirubin Negative (Negative) 01/04/25 Urine Urobilinogen Negative (Negative) 01/04/25 Urine Leukocyte Esterase 2+ (Negative) H 01/04/25 Urine WBC (Auto) 21-50 /hpf (0-5) H 01/04/25 Urine RBC (Auto) 0-2 /hpf (0-2) 01/04/25 Urine Hyaline Casts (Auto) 0-2 /lpf (0-2) 01/04/25 Urine Epithelial Cells (Auto) 0-2 /hpf (0-2) 01/04/25 Urine Bacteria (Auto) None Seen (None Seen) 01/04/25 Blood Type A Positive 01/04/25 Antibody Screen NEGATIVE 01/04/25 Testing Electrocardiogram Date: 05/15/24 NSR, rate 61 bpm Nonspecific T wave abnormality Chest X-Ray Date: 01/04/25 No acute findings.
[~2025-02-08 07:39] MED LIST changes: -ACETAMINOPHEN 500 MG TAB PO SCH; -BUPIVACAINE 0.5 % 5 MG/1 ML PF 10ML VIAL ONE; -CeleBREX 200 MG CAP PO SCH; +DEXAMETHASONE SOD INJ 4 MG/ML VIAL ONE; -FAMOTIDINE 20 MG TAB PO SCH; -GABAPENTIN 300 MG CAP PO SCH; +GLYCOPYRROLATE 0.2 MG/ML VIAL ONE; +LIDOCAINE 2% 2 ML VIAL/AMP(20MG/ML) INFIL ONE; -LR 500ML BOLUS, THEN 15ML/HR IV SCH; -METOCLOPRAMIDE HCL 10 MG TABLET PO SCH; +MIDAZOLAM HCL 1 MG/ML 2ML VIAL ONE; +ONDANSETRON INJ 2 MG/ML 2 ML VIAL ONE; +PROPOFOL IV EMULSION 10 MG/ML 20 ML VIAL IV ONE; +ROCURONIUM BROMIDE 10 MG/ML 5 ML VIAL IV ONE; -ROPIVACAINE 0.5% HCL/PF 150 MG, BUPIVACAINE 0.75% MPF 20 ML, EPINEPHrine 30MG/30ML (OR ... INSTIL SCH; +SUGAMMADEX SODIUM 200 MG/2 ML VIAL IV ONE; -TRANEXAMIC ACID 1,000 MG **IV Intra-op IV SCH; -TRANEXAMIC ACID 1,000 MG **IV Pre-op IV SCH; -ceFAZolin 2000MG 2,000 MG/15 ML SYR IV SCH; -dexAMETHasone 4 MG TAB PO SCH
[2025-02-08] MEDS: ACETAMINOPHEN 500 MG TAB PO SCH (08:19)
[2025-02-08] MEDS: LR 15ML/HR IV SCH (08:19)
[2025-02-08] MEDS: CeleBREX 200 MG CAP PO SCH (08:19)
[2025-02-08] MEDS: GABAPENTIN 300 MG CAP PO SCH (08:19)
--- NOTE | 2025-02-08 09:18 | History & Physical Bridge Note ---
Date of Service February 08, 2025 History & Physical Bridge Note I have examined the patient, reviewed the History & Physical and in the interval since the performance of the History & Physical I have noted the following changes of clinical significance: no changes noted
--- NOTE | 2025-02-08 09:19 | History & Physical Report ---
Date of Service February 08, 2025 Assessment & Plan (1) Myelopathy concurrent with and due to spinal stenosis of thoracic region: Plan: T12-L1 laminectomy with discectomy possible T12-L1 fusion History of Present Illness Chief Complaint: Back and leg pain Primary Care Provider: Sonali Martins PA-C This is a 69-year-old female who presents with chronic cyst and back and leg pain after failing course of nonoperative care is here for surgical invention. Allergies Allergy/AdvReac Type Severity Reaction Status Date / Time adhesive Allergy Mild Red skin Verified 02/08/25 07:56 (if bandaids on for long time) No Known Drug Allergies Allergy Unknown NONE Verified 02/08/25 07:56 Home Medications Medication Instructions Recorded Confirmed Type atorvastatin 20 mg tablet 20 mg PO PM 11/04/18 02/08/25 History citalopram 20 mg tablet 20 mg PO QAM 11/04/18 02/08/25 History diltiazem HCl 240 mg capsule,24 240 mg PO QAM 11/04/18 02/08/25 History hr,extended release levothyroxine 75 mcg tablet 75 mcg PO QAM 11/04/18 02/08/25 History losartan 100 mg tablet 100 mg PO QAM 11/04/18 02/08/25 History pantoprazole 40 mg tablet,delayed 40 mg PO QPM 11/04/18 02/08/25 History release potassium chloride 20 mEq 20 meq PO QDL 11/04/18 02/08/25 History tablet,extended release pregabalin 50 mg capsule (Lyrica) 50 mg PO BID 11/04/18 02/08/25 History triamterene 37.5 1 tab PO QAM 11/04/18 02/08/25 History mg-hydrochlorothiazide 25 mg tablet meloxicam 15 mg tablet 15 mg PO QAM 07/11/21 02/08/25 History cholecalciferol (vitamin D3) 50 50 mcg PO DAILY 07/21/24 02/08/25 History mcg (2,000 unit) capsule omega 3-hhz-zto-fish oil 1,200 mg 2 cap PO DAILY 12/28/24 02/08/25 History (144 mg-216 mg) capsule (Fish Oil) Past Med/Surg History Problem List (Updated 02/08/25 @ 09:19 by Israel M Anu, DO) Myelopathy concurrent with and due to spinal stenosis of thoracic region Nocturnal hypoxemia CKD (chronic kidney disease) stage 3, GFR 30-59 ml/min Primary osteoarthritis of right knee Encounter for pre-operative examination Primary localized osteoarthritis of left knee Pre-diabetes A1c 5.8% 11/2018 Morbid obesity Osteoarthritis Hiatal hernia GERD (gastroesophageal reflux disease) controlled Hypothyroidism Glaucoma Depression Hypertension Hyperlipidemia Sleep apnea CPAP (compliant) Medical History (Updated 02/08/25 @ 09:19 by Israel Brennan DO) Depression Glaucoma Hypothyroidism GERD (gastroesophageal reflux disease) controlled, stable per pt Hiatal hernia History of colon polyps Fusion of spine L5-S1 posterior lumbar spinal fusion/decompression (07/09/17): Grade view 1, Glidescope#3, ETT 7.5 at [facility] CKD (chronic kidney disease), stage III History of postoperative nausea and vomiting HTN (hypertension) controlled, stable per pt HLD (hyperlipidemia) Sleep apnea CPAP-compliant Osteoarthritis Pre-diabetes History of COVID-19 Dx 02/27/20 ([facility]) > symptoms at time of loss of taste/smell > taste/smell improved but not fully recovered 2021 Surgical History Hx of colonoscopy History of esophagogastroduodenoscopy (EGD) Hx of tooth extraction History of total right knee replacement 2020 Hx of cholecystectomy History of carpal tunnel release of both wrists History of total knee replacement Left TKA (12/22/18): SAB at L3 (x1 attempt) + PNB at [facility] Family History Father AAA (abdominal aortic aneurysm) Aunt AAA (abdominal aortic aneurysm) Sister AAA (abdominal aortic aneurysm) Mother Breast cancer Sister Breast cancer Fibromyalgia Social History Smoking Status: Never smoker Second Hand Exposure: No; Do You Dip or Chew Tobacco: No; Tobacco Cessation Education Requested by Patient: No Hx Alcohol Use: Yes Alcohol type: hard liquor Hx Substance Use: No Preferred Language: Greek Communication Ability: Effective Reinsurance Claims Analyst Required: No Beliefs That Will Affect Care: None marital status: Current Living Situation: Spouse current occupational status: retired Other Information That Helps Us Care for You: No Feels Safe at Home: Yes Safety Concerns: Feels Safe At This Time Assistive Devices: CPAP and Glasses Physical Exam Physical Exam: Patient is alert and oriented Heart regular rhythm Lungs clear Results & Data Results & Data Vital Signs (Past 12 Hours) Vital Signs Temp Pulse Resp BP Pulse Ox O2 Del Method 02/08/25 08:02 36.8 C 70 12 165/82 H 94 Room Air
[2025-02-08] MEDS ORDERED: ATROPINE SULFATE 0.1 MG/ML 10ML SYR IV PRN (09:24)
[2025-02-08] MEDS ORDERED: HYDROmorphone INJ 1 MG/ML SYRINGE IV PRN ×2 (09:24→13:13)
[2025-02-08] MEDS ORDERED: KETAMINE HCL 10MG/ML SYR ONE (10:02)
[2025-02-08] MEDS: ceFAZolin 330 MG/ML 1 GM VIAL ONE (10:14)
[2025-02-08] MEDS: BUPIVACAINE/EPINEPHRINE 0.25% 1:200,000 30 ML VIAL ONE (10:14)
[2025-02-08] MEDS: FLOSEAL HEMOSTATIC MATRIX 10ML TOP ONE (11:25)
--- NOTE | 2025-02-08 11:37 | Operative Report ---
Post Operative Report Pre & Post Diagnosis Operation Date: 02/08/25 09:15 Pre-Op Diagnosis: #1 myelopathy concurrent with and due to spinal stenosis of thoracic region #2 disc herniation with free fragment T12-L1. #3 morbid obesity Post-Op Diagnosis: Same I identified the patient and participated in the time-out.: Yes Procedure Operation Date: 02/08/25 09:15 Actual Procedures #1 lumbar decompression with bilateral facetectomies foraminotomies T12-L1 L1-L2 including excision of herniated free fragments. #2 posterior spinal fusion T12- L2. #3 placed posterior instrumentation T12-L2 using camber. #4 interbody fusion T12-L1. #5 placement Spira 9 x 26 mm T12-L1. #6 placement of Koros, with Proteus bone graft in the posterior lateral gutters and os design interbody space. #7 application of versa wrap of the exposed dura. Surgeon Israel Brennan, DO Transition Lead Zahra Dixon Estimated Blood Loss 300 Findings See Below The patient is 5 foot 3 weighing over 112 kg with a BMI in excess of 44. Patie nt's body habitus combined with significant epidural at inflammation and adhesion to the free fragments in the disc canal requiring extension of the decompression and increased technical difficulty. This had at least 40% increased operative time. And recommending modifier 22. Specimens None Indications This is a 69-year-old female who presents publish diagnosis. Having marked decline in status she is here for the above-mentioned surgery. Description of Procedure Patient was met with identified informed consent obtained. Patient was then taken to the operative suite underwent intubation placed in a prone position on the David table atop the Elder frame. All bony promises well-padded eyes inspected to ensure no external pressure placed upon them. This point the thoracolumbar spine was prepped and draped in sterile fashion. Sharp dissection with the assistance Gabriele formed down to and exposing the lamina transverse processes of T12-L1. Then performed complete laminectomy of T12 with bilateral medial facetectomies to widely decompress the canal. I then attempted to address the fragment of disc material that migrated caudally. This required extension of the decompression to include the lamina of L1 and medial facetectomy of L1-L2 as the fragment had migrated caudally and was affecting exiting L1 nerve root. Significant adhesion of the disc material was noted to the dura and exiting root. Took significant amount of time to remove all the fragments. Due to the instability created by the facetectomies at L1-L2 and T12-L1 I did perform a fusion of T12-L2. Pedicle screws were placed in T12 L1- L2 bilaterally with assistance of fluoroscopy through SI joint placed. By way the transforaminal approach on the left discectomy of T12-L1 was performed endplates created to subcortical bleeding bone and a 9 x 26 mm Spira cage filled with os design bone graft tapped in position. The rods were then locked in final position bilaterally. Transverse processes of T12 L1-L2 burred to subcortical bleeding bone. Koros combined with Proteus bone graft placed in posterior gutters. Versa wrap placed of the exposed dura. 15 round BELA drain inserted. The incision was then closed with 1 Vicryl the fascia 2-0 Vicryl subcutaneously and 4 Monocryl for final skin closure. Steri-Strips sterile dressing placed. Patient waken taken PACU stable condition. Please note Zahra Dixon was present of the entire procedure involve the patient positioning complex ports of the surgery and final skin closure. I attest to the content of the Intraoperative Record and any orders documented therein. Any exceptions are noted below.
--- NOTE | 2025-02-08 11:54 | Fluoroscopy Report ---
FL lumbar spine 2-3V CLINICAL HISTORY: T12-L1 DUARTE/DISC/FUSION COMPARISON STUDY: Fluoroscopic images lumbar spine 07/09/2017 FLUOROSCOPY TIME: 28.8 seconds FLUOROSCOPY IMAGES: 2 EXPOSURE DOSE: 29.432 mGy FINDINGS: 3 level laminectomy with posterior interbody rods and screw fusion with single level discec toyin, exact numbering is not definitive based on magnification. The hardware appears intact and the a lignment appears satisfactory. No unexpected opaque foreign bodies. IMPRESSION: Fluoroscopic assistance as above. ACT 112: Negative or not required by law. Electronically signed by: Rohan Waldrop M.D. 02/08/2025 11:53 AM
[2025-02-08] MEDS: ONDANSETRON INJ 2 MG/ML 2 ML VIAL IV PRN (12:29)
[2025-02-08] MEDS: DROPERIDOL 5 MG/2 ML VIAL IV STA (12:40)
[2025-02-08] MEDS ORDERED: FAMOTIDINE 20 MG TAB PO PRN (13:13)
[2025-02-08] MEDS ORDERED: LORazepam 0.5 MG TAB PO PRN (13:13)
[2025-02-08] MEDS ORDERED: HYDROmorphone INJ 0.5 MG/0.5 ML SYR IV PRN (13:13)
[2025-02-08] MEDS ORDERED: ONDANSETRON 4 MG OD TAB PO PRN (13:13)
[2025-02-08] MEDS ORDERED: SOD PHOSPHATE/SOD BIPHOSPHATE ENEMA 132 ML BTL PR PRN (13:13)
[2025-02-08] MEDS ORDERED: PROMETHAZINE 12.5 MG/50.5 ML BAG IV PRN (13:13)
[2025-02-08] MEDS ORDERED: ACETAMINOPHEN 1,000 MG/100 ML VIAL IV PRN (13:13)
[2025-02-08] MEDS ORDERED: NALOXONE HCL 0.4 MG/1 ML VIAL/CARP IV PRN (13:13)
[2025-02-08] MEDS ORDERED: ALUMINUM/MAGNESIUM SUSP 30 ML UDC PO PRN (13:13)
[2025-02-08] MEDS ORDERED: ONDANSETRON INJ 2 MG/ML 2 ML VIAL IV PRN (13:13)
[2025-02-08] MEDS ORDERED: ACETAMINOPHEN 500 MG TAB PO PRN (13:13)
[2025-02-08] MEDS ORDERED: DO NOT ADMINISTER FLU VACCINE PRN (13:13)
[2025-02-08] MEDS ORDERED: METOCLOPRAMIDE HCL INJ 5 MG/ML 2 ML VIAL IV PRN (13:13)
[2025-02-08] MEDS ORDERED: DO NOT ADMINISTER PNEUMOCOCCAL VACCINE PRN (13:13)
[2025-02-08] MEDS ORDERED: LORazepam Inj 0.5 MG in SYRINGE 0.25 ML IV PRN (13:13)
[2025-02-08] MEDS ORDERED: diphenhydrAMINE Capsule 25 MG CAP PO PRN (13:13)
[2025-02-08] MEDS ORDERED: MAGNESIUM HYDROXIDE SUSP 30 ML UDC PO PRN (13:13)
[2025-02-08] MEDS: LR 60ML/HR IV SCH (13:32)
--- NOTE | 2025-02-08 13:41 | Consultation ---
Date of Consultation February 08, 2025 Assessment & Plan (1) Myelopathy concurrent with and due to spinal stenosis of thoracic region: Mrs. Marrufo is a 69year old F with a past medical history of Type II DM controlled with diet, CKD stage III, hypothyroidism, HLD, NEVAEH, HTN, obesity and other problems consulted to us for postop medical management status post laminectomy on 02/08/25. History of chronic lumbar spine disease with left-sided weakness and gait disturbance. Had previous back surgery in 2018 with cage, screws, and pins and no history of surgical complications or blood clots. Also with history SI joint pain and follows pain clinic for injection, last given in October 2024. #Myelopathy concurrent with and due to spinal stenosis of thoracic region * POD#0 s/p lumbar decompression with bilateral facetectomies foraminotomies and fusion T12-L2 including excision of herniated free fragments, placed posterior instrumentation T12-L2 using camber, interbody fusion T12-L1 with Dr. Brennan. * EBL: 300 ml w/ additional via BELA; Preop Hgb 15; Monitor H&H with AM labs * Cefazolin Q8H and Decadron daily per ortho * Per ortho for pain control, wound care, anticoagulation and activities * Encourage incentive spirometry * NV checks * Advance diet as tolerated * PT/OT when appropriate #Hypertension #CKD Stage III * BP stable 117/79 now * Hold home losartan, HCTZ; trend BP's * On diltiazem for BP management OP; Will give Half dose diltiazem in the morning /, resume full dose once BP return to baseline; #Sleep Apnea * on CPAP without oxygen support at home-> resume home CPAP machine * 2LPM oxygen support post-operatively-> wean as tolerated to room air #Hypothyroidism * Continue home levothyroxine #Hyperlipidemia * Continue home statin #Depression * Continue home citalopram #GERD * Cont home PPI DVT Ppx: Code status: Full PCP: Sonali Martins PA-C Dispo: Additional post-op management needed at this time, Anticipate d/c to home with family support pending PT eval Patient seen in collaboration with Dr. Khoury. Please see addendum.I spent a total of 35 minutes coordinating, documenting and providing care for this patient excluding time spent in the performance of separately billed services or time spent by another provider/QHP. (2) Hypertension: (3) CKD (chronic kidney disease) stage 3, GFR 30-59 ml/min: (4) Sleep apnea: (5) Hypothyroidism: (6) Hyperlipidemia: (7) Depression: (8) GERD (gastroesophageal reflux disease): Supervising Physician Co-Signing Physician Notes I have seen and discussed the case with the collaborating advanced practitioner. I agree with the above H&P. I have reviewed and confirmed the patients medical history, the findings on physical examination, and the patients diagnosis and treatment plan with Neil KAUFFMAN and agree with the information documented. Evaluated at bedside. In some post op discomfort. Readjusted Tylenol regimen. Discussed adjusted antihypertensives. Patient agrees. Agree with plan as above. I spent a total of15 minutes coordinating, documenting, and providing care for this patient excluding time spent in the performance of separately billed services. All of the aforementioned completed outside of collaborating with the assigned advanced practitioner for a full treatment plan. I have reviewed the advanced practitioner's documentation, and I agree with, and take responsibility for the plan of care History of Present Illness Attending Physician: Israel Brennan, DO History of Present Illness Mrs. Marrufo is a 69year old F with a past medical history of Type II DM controlled with diet, CKD stage III, hypothyroidism, HLD, NEVAEH, HTN, obesity and other problems consulted to us for postop medical management status post laminectomy on 02/08/25. History of chronic lumbar spine disease with left-sided weakness and gait disturbance. Had previous back surgery in 2018 with cage, screws, and pins and no history of surgical complications or blood clots. Also with history SI joint pain and follows pain clinic for injection last given in October 2024. Denies fever, chills, weight loss, headache, numbness/tingling, pelvic numbness, cognitive changes, vision/hearing changes, chest pain, SOB, swelling, difficulty breathing, urinary concerns, N/V/D, skin rashes, lesions, bruising. History obtained primarily from the patient and via hospitalization record. External chart review obtained from [employer] Allergies Allergy/AdvReac Type Severity Reaction Status Date / Time adhesive Allergy Mild Red skin Verified 02/08/25 07:56 (if bandaids on for long time) No Known Drug Allergies Allergy Unknown NONE Verified 02/08/25 07:56 Home Medications Medication Instructions Recorded Confirmed Type atorvastatin 20 mg tablet 20 mg PO PM 11/04/18 02/08/25 History citalopram 20 mg tablet 20 mg PO QAM 11/04/18 02/08/25 History diltiazem HCl 240 mg capsule,24 240 mg PO QAM 11/04/18 02/08/25 History hr,extended release levothyroxine 75 mcg tablet 75 mcg PO QAM 11/04/18 02/08/25 History losartan 100 mg tablet 100 mg PO QAM 11/04/18 02/08/25 History pantoprazole 40 mg tablet,delayed 40 mg PO QPM 11/04/18 02/08/25 History release potassium chloride 20 mEq 20 meq PO QDL 11/04/18 02/08/25 History tablet,extended release pregabalin 50 mg capsule (Lyrica) 50 mg PO BID 11/04/18 02/08/25 History triamterene 37.5 1 tab PO QAM 11/04/18 02/08/25 History mg-hydrochlorothiazide 25 mg tablet meloxicam 15 mg tablet 15 mg PO QAM 07/11/21 02/08/25 History cholecalciferol (vitamin D3) 50 50 mcg PO DAILY 07/21/24 02/08/25 History mcg (2,000 unit) capsule omega 3-ohy-rmd-fish oil 1,200 mg 2 cap PO DAILY 12/28/24 02/08/25 History (144 mg-216 mg) capsule (Fish Oil) Patient History Medical History Depression Glaucoma Hypothyroidism GERD (gastroesophageal reflux disease) controlled, stable per pt Hiatal hernia History of colon polyps Fusion of spine L5-S1 posterior lumbar spinal fusion/decompression (07/09/17): Grade view 1, Glidescope#3, ETT 7.5 at [facility] CKD (chronic kidney disease), stage III History of postoperative nausea and vomiting HTN (hypertension) controlled, stable per pt HLD (hyperlipidemia) Sleep apnea CPAP-compliant Osteoarthritis Pre-diabetes History of COVID-19 Dx 02/27/20 ([facility]) > symptoms at time of loss of taste/smell > taste/smell improved but not fully recovered 2021 Surgical History Hx of colonoscopy History of esophagogastroduodenoscopy (EGD) Hx of tooth extraction History of total right knee replacement 2020 Hx of cholecystectomy History of carpal tunnel release of both wrists History of total knee replacement Left TKA (12/22/18): SAB at L3 (x1 attempt) + PNB at [facility] Family History Father AAA (abdominal aortic aneurysm) Aunt AAA (abdominal aortic aneurysm) Sister AAA (abdominal aortic aneurysm) Mother Breast cancer Sister Breast cancer Fibromyalgia Social History Smoking Status: Never smoker Second Hand Exposure: No; Do You Dip or Chew Tobacco: No; Tobacco Cessation Education Requested by Patient: No Hx Alcohol Use: Yes Alcohol type: hard liquor Hx Substance Use: No Preferred Language: Indonesian Communication Ability: Effective Eye Clinic Manager Required: No Beliefs That Will Affect Care: None marital status: Current Living Situation: Spouse current occupational status: retired Other Information That Helps Us Care for You: No Feels Safe at Home: Yes Safety Concerns: Feels Safe At This Time Assistive Devices: CPAP and Glasses Review of Systems Review of Systems: All systems reviewed & are unremarkable except as noted in HPI & below Physical Exam Physical Exam: VITALS: Reviewed. WEIGHT/BMI reviewed. GEN: Overweight, well-developed, NAD. PSYCH: Good Judgment. AOx3. Normal memory, mood, and affect. HEENT -Head: NC/AT; -Eyes: PERRL, EOMI. No discharge or redn ess; -Ears: External ears are normal. -Nose: Normal nares. -Mouth and throat: MMM. Normal gums, muc nevaeh, palate,. Good dentition. NECK: Supple, with no masses. CV: RRR, no m/r/g. No peripheral swelling. LUNGS: Clear and equal, no w/r/c. 2LPM supplemental O2 with stable sats ABD: Soft, NT/ND, Active bowel sounds x 4, no masses or organomegaly. : N/A SKIN: Warm, well perfused. No skin rashes or abnormal lesions. Back dressing C/D/I. BELA drain intact w/ serosanguinous drainage MSK: No deformities, GUAMAN freely, BLE strength 4/5 EXT: No clubbing, cyanosis, or edema. NEURO: CN II-XII grossly intact. No focal deficits. Results & Data Vital Signs (Past 12 Hours) Vital Signs Temp Pulse Pulse Resp BP Pulse Ox O2 Del Method 02/08/25 13:10 36.7 C 70 18 127/68 94 Nasal Cannula 02/08/25 12:45 36.5 C 64 14 103/71 92 Nasal Cannula 02/08/25 12:35 69 14 105/73 94 Nasal Cannula 02/08/25 12:25 72 15 127/78 93 Oxymask 02/08/25 12:15 79 13 133/84 92 Oxymask 02/08/25 12:05 80 17 152/92 H 96 Oxymask 02/08/25 11:55 78 17 162/96 H 96 Oxymask 02/08/25 11:48 36.2 C L 80 14 170/94 H 95 Oxymask 02/08/25 08:02 36.8 C 70 12 165/82 H 94 Room Air O2 Flow Rate 02/08/25 13:10 3 02/08/25 12:45 3 02/08/25 12:35 3 02/08/25 12:25 3 02/08/25 12:15 8 02/08/25 12:05 8 02/08/25 11:55 8 02/08/25 11:48 8 02/08/25 08:02
[2025-02-08] MEDS: SODIUM CHLORIDE 0.9% 1,000 ML IV SCH (13:49)
--- NOTE | 2025-02-08 14:28 | Anesthesiology Progress Note ---
Date of Service February 08, 2025 Anesthesia Post Procedure Vital Signs Vital Signs: Temp Pulse Pulse Resp BP Pulse Ox O2 Del Method 02/08/25 14:08 36.7 C 75 17 125/78 995 H Nasal Cannula 02/08/25 13:40 36.6 C 64 17 117/71 95 Nasal Cannula 02/08/25 13:10 36.7 C 70 18 127/68 94 Nasal Cannula 02/08/25 12:45 36.5 C 64 14 103/71 92 Nasal Cannula 02/08/25 12:35 69 14 105/73 94 Nasal Cannula 02/08/25 12:25 72 15 127/78 93 Oxymask 02/08/25 12:15 79 13 133/84 92 Oxymask 02/08/25 12:05 80 17 152/92 H 96 Oxymask 02/08/25 11:55 78 17 162/96 H 96 Oxymask 02/08/25 11:48 36.2 C L 80 14 170/94 H 95 Oxymask 02/08/25 08:02 36.8 C 70 12 165/82 H 94 Room Air O2 Flow Rate 02/08/25 14:08 2 02/08/25 13:40 3 02/08/25 13:10 3 02/08/25 12:45 3 02/08/25 12:35 3 02/08/25 12:25 3 02/08/25 12:15 8 02/08/25 12:05 8 02/08/25 11:55 8 02/08/25 11:48 8 02/08/25 08:02 Pain Intensity Back: Pain Intensity: 10 Transfer of Care Handoff Completed per policy Notes Mental Status: alert / awake / arousable Patient Amnestic to Procedure: Yes Nausea / Vomiting: adequately controlled Pain: adequately controlled Airway Patency, RR, SpO2: stable & adequate BP & HR: stable & adequate Hydration State: stable & adequate Anesthetic Complications: no major complications apparent and Pt Satisfied with anesthetic care
[2025-02-08] MEDS: ATORVASTATIN 20 MG TAB PO SCH (20:39)
[2025-02-08] MEDS: DOCUSATE SODIUM/SENNA 50/8.6MG TAB PO SCH (20:44)
[2025-02-08] MEDS: PREGABALIN 50 MG CAP PO SCH (20:45)
[2025-02-09] MEDS: LEVOTHYROXINE SODIUM 75 MCG TABLET PO SCH (05:58)
[2025-02-09] MEDS: POLYETHYLENE (MIRALAX) 17 GM PACK PO SCH (05:58)
[2025-02-09 06:52] LABS: Hematocrit (blood only) 36.5 % (37.0-47.0); Hemoglobin 12.5 g/dL (12.0-16.0); Immature Granulocytes # (auto) 0.09 K/uL (0.01-0.20); Immature Granulocytes % (auto) 0.6 %; Mean Corpuscular Hemoglobin 29.1 pg (25.0-34.0); Mean Corpuscular Volume 84.9 fL (80.0-100.0); Platelet Count 273 K/uL (130-400); RDW Standard Deviation 41.6 fL (36.4-46.3); Red Blood Count 4.30 M/uL (4.20-5.40); White Blood Count 14.40 K/ul (4.8-10.8)
[2025-02-09 07:44] LABS: Anion Gap 9.0 (3-11); Blood Urea Nitrogen 21.0 mg/dl (6-23); Calcium 8.3 mg/dl (8.6-10.3); Carbon Dioxide 28.0 mmol/L (21-32); Chloride 102.0 mmol/L (98-107); Creatinine Clr Calc Pharmacy 58.8 ml/min; Glucose 139.0 mg/dl (70-99(Fasting)); Potassium 3.7 mmol/L (3.5-5.1); Sodium 139.0 mmol/L (136-145)
[2025-02-09] MEDS ORDERED: TRIAMTERENE/HCTZ 37.5/25MG TAB PO SCH (09:00)
[2025-02-09] MEDS ORDERED: LOSARTAN POTASSIUM 50 MG TAB PO SCH (09:00)
--- NOTE | 2025-02-09 09:10 | Hospitalist Progress Note ---
Date of Service February 09, 2025 Assessment & Plan (1) Myelopathy concurrent with and due to spinal stenosis of thoracic region: Plan: Mrs. Marrufo is a 69year old F with a past medical history of Type II DM controlled with diet, CKD stage III, hypothyroidism, HLD, NEVAEH, HTN, obesity and other problems consulted to us for postop medical management status post laminectomy on 02/08/25. History of chronic lumbar spine disease with left-sided weakness and gait disturbance. Had previous back surgery in 2018 with cage, screws, and pins and no history of surgical complications or blood clots. Also with history SI joint pain and follows pain clinic for injection, last given in October 2024. Myelopathy concurrent with and due to spinal stenosis of thoracic region POD#1 s/p lumbar decompression with bilateral facetectomies foraminotomies and fusion T12-L2 including excision of herniated free fragments, placed posterior instrumentation T12-L2 using camber, interbody fusion T12-L1 with Dr. Brennan. EBL: 300 ml w/ additional via BELA; Preop Hgb 15; hgb 12.5 02/09 Cefazolin Q8H and Decadron daily per ortho Per ortho for pain control, wound care, anticoagulation, IS Tolerating diet PT/OT Hypertension CKD Stage III BP stable 117/79 now Hold home losartan, HCTZ; trend BP's On diltiazem for BP management OP; Will give Half dose diltiazem in the morning 02/09, resume full dose 02/10 Sleep Apnea on CPAP 2LPM oxygen support post-operatively-> wean as tolerated to room , remains on such this morning. Hypothyroidism Continue home levothyroxine Hyperlipidemia Continue home statin Depression Continue home citalopram GERD Cont home PPI DVT Ppx: Code status: Full Dispo: d/c to home w/ HH pending PT lizbet I spent a total of 35 minutes coordinating, documenting and providing care for this patient excluding time spent in the performance of separately billed services or time spent by another provider/QHP. Admission and Anticipated Discharge Date Admission Date: February 08, 2025 Subjective Pt is feeling well overall. Reports having irregular heart beats in May, had an EKG and holter monitor for 10 days which did not show any thing. She is on cardizem at home as well as 3 other BP meds. PT denies any complaints this morning. Notes last BM was prior to surgery, had issues with constipation in the past after previous back surgery. Anticipates working with PT/OT today. Review of Systems Review of Systems: Constitutional: No fever, sweats or chills Eyes: No diplopia, no worsening or blurred vision ENT: normal hearing, no trouble swallowing Respiratory: No cough, sputum, dyspnea at rest or on exertion Cardiovascular: No chest pain, tightness or palpitations Abdomen: No pain, nausea, vomiting, diarrhea or constipation Musculoskeletal: No joint pain, calf pain, swelling Neurologic: No weakness, numbness/tingling, or balance problems Psychiatric: No anxiety or depression Skin: No rash or itch Physical Exam Physical Exam: General: awake, alert, no apparent distress, morbidly obese white female with BMI of 44.0 Head: Normocephalic, atraumatic ENT: PERRL, EOMI, no pharyngeal exudate, mucous membranes moist Chest: Clear to auscultation, on room air, no adventitious breath sounds Cardiac: Regular rate and rhythm, + few PVCs, no murmur, no JVD, normal peripheral pulses, good capillary refill Abdominal: NABS x 4 quadrants, soft, nondistended, nontender to palpation, no rebound or guarding Back: dressing c/d/i, BELA drain with serosanginous outs Extremities: Normal inspection, no peripheral edema or erythema, calfs nontender to palpation Psych: Normal mood and affect Neuro: AAO x 3, strength intact bilaterally and rated 5/5, no motor deficits, speech is clear, no peripheral sensory deficits Results & Data Results & Data Vital Signs (Past 12 Hours) Vital Signs Temp Pulse Pulse Resp BP Pulse Ox O2 Del Method 02/09/25 07:54 93 Nasal Cannula 02/09/25 07:51 36.5 C 74 18 155/88 H 91 Room Air 02/09/25 07:51 Nasal Cannula 02/09/25 03:47 85 L Room Air, Nasal Cannula 02/09/25 03:46 94 Nasal Cannula 02/09/25 03:00 36.3 C L 81 16 136/84 Room Air 02/08/25 23:59 36.5 C 70 17 135/80 92 Room Air O2 Flow Rate 02/09/25 07:54 2 02/09/25 07:51 02/09/25 07:51 3 02/09/25 03:47 02/09/25 03:46 2 02/09/25 03:00 02/08/25 23:59
[2025-02-09] MEDS: CHOLECALCIFEROL 25 MCG (1000 UNITS) TAB PO SCH (09:20)
[2025-02-09] MEDS: CITALOPRAM 20 MG TAB PO SCH (09:20)
[2025-02-09] MEDS: dexAMETHasone 6 MG in SYRINGE 0 ML IV SCH (09:22)
[2025-02-09] MEDS: POTASSIUM CHLORIDE CRTAB 20 MEQ TABCR PO SCH (11:58)
--- NOTE | 2025-02-09 12:13 | Orthopedic Progress Note ---
Date of Service February 09, 2025 Assessment & Plan (1) Myelopathy concurrent with and due to spinal stenosis of thoracic region: Plan: At this time we will continue physical therapy monitor her BELA operatively discharge home in the next few days. Admission and Anticipated Discharge Date Admission Date: February 08, 2025 Subjective Back pain controlled leg symptoms improved. She feels like her ambulation is more stable. Physical Exam Physical Exam: Patient is in the chair at the bedside. Discussed active testing. Is comfortable. Results & Data Vital Signs (Past 12 Hours) Vital Signs Temp Pulse Pulse Resp BP Pulse Ox O2 Del Method 02/09/25 11:40 36.6 C 71 18 135/81 96 Nasal Cannula 02/09/25 09:12 74 115/78 02/09/25 07:54 93 Nasal Cannula 02/09/25 07:51 36.5 C 74 18 155/88 H 91 Room Air 02/09/25 07:51 Nasal Cannula 02/09/25 03:47 85 L Room Air, Nasal Cannula 02/09/25 03:46 94 Nasal Cannula 02/09/25 03:00 36.3 C L 81 16 136/84 Room Air O2 Flow Rate 02/09/25 11:40 2 02/09/25 09:12 02/09/25 07:54 2 02/09/25 07:51 02/09/25 07:51 3 02/09/25 03:47 02/09/25 03:46 2 02/09/25 03:00 Queries Orthopedic Spine Obesity: Yes
--- NOTE | 2025-02-10 10:28 | Orthopedic Progress Note ---
Date of Service February 10, 2025 Assessment & Plan (1) Myelopathy concurrent with and due to spinal stenosis of thoracic region: Plan: This time continue to physical therapy monitor BELA output anticipate discharge home tomorrow. Admission and Anticipated Discharge Date Admission Date: February 08, 2025 Subjective Patient's back pain is controlled. Ambulation improved. Physical Exam Physical Exam: Patient is here for bedside. His strength testing appears comfortable. Results & Data Vital Signs (Past 12 Hours) Vital Signs Temp Pulse Resp BP Pulse Ox O2 Del Method O2 Flow Rate 02/10/25 10:04 92 Room Air 02/10/25 08:24 36.6 C 71 16 148/88 H 92 Nasal Cannula 1 02/10/25 08:06 Nasal Cannula 3 02/09/25 23:46 36.5 C 68 19 114/80 93 Nasal Cannula 1 Queries Orthopedic Spine Obesity: Yes
--- NOTE | 2025-02-10 14:05 | Hospitalist Progress Note ---
Date of Service February 10, 2025 Assessment & Plan (1) Myelopathy concurrent with and due to spinal stenosis of thoracic region: Plan: Mrs. Marrufo is a 69year old F with a past medical history of Type II DM controlled with diet, CKD stage III, hypothyroidism, HLD, NEVAEH, HTN, obesity and other problems consulted to us for postop medical management status post laminectomy on 02/08/25. History of chronic lumbar spine disease with left-sided weakness and gait disturbance. Had previous back surgery in 2018 with cage, screws, and pins and no history of surgical complications or blood clots. Also with history SI joint pain and follows pain clinic for injection, last given in October 2024. Myelopathy concurrent with and due to spinal stenosis of thoracic region POD#2 s/p lumbar decompression with bilateral facetectomies foraminotomies and fusion T12-L2 including excision of herniated free fragments, placed posterior instrumentation T12-L2 using camber, interbody fusion T12-L1 with Dr. Brennan. EBL: 300 ml w/ additional via BELA; Preop Hgb 15; hgb 12.5 02/09 Cefazolin Q8H and Decadron daily per ortho Per ortho for pain control, wound care, anticoagulation, IS Tolerating diet - monitor bowel regimen as last BM was on 02/07 PT/OT Hypertension CKD Stage III BP stable 117/79 now Hold home losartan, HCTZ; trend BP's On diltiazem for BP management OP; Will give Half dose diltiazem in the morning 02/09, resume full dose 02/10 Sleep Apnea on CPAP (required O2 added overnight on 02/10) 2LPM oxygen support post-operatively-> wean as tolerated to room , remains on 1 L this morning. Ambulatory pulse ox ordered. Hypothyroidism Continue home levothyroxine Hyperlipidemia Continue home statin Depression Continue home citalopram GERD Cont home PPI DVT Ppx: Code status: Full Lines: PIV x 1 Dispo: d/c to home w/ HH pending PT lizbet Sanchez spent a total of 35 minutes coordinating, documenting and providing care for this patient excluding time spent in the performance of separately billed services or time spent by another provider/QHP. Admission and Anticipated Discharge Date Admission Date: February 08, 2025 Supervising Physician Co-Signing Physician Notes Patient was seen and examined at bedside as a follow-up of status post lumbar decompression and fusion. Patient reports improvement in her balance and walking after surgery. Patient reports being able to eat okay and moving gas, has not moved bowel. Will continue with bowel regimen. Patient otherwise is stable. Labs reviewed. I have seen and examined the patient and have discussed the case with the provider above. I agree with the assessment and plan as stated. Total time spent independently: 20 minutes. Subjective Pt seen and examined this morning. She is feeling well. Reports breathing feels improved. Will trial off O2 throughout the day today and have nursing complete ambulatory pulse ox in case she needs O2 at home on discharge. Reports she did have some sputum expectorated earlier today. Denies any fever, chills, sweats. She still has not had bowel movement. Discussed bowel regimen and she is taking miralax on daily basis, encouraged stool softener use and will ask nursing to administer prune juice with butter today to assist in producing a BM. 10 point ROS reviewed and otherwise negative. Physical Exam Physical Exam: General: awake, alert, no apparent distress, morbidly obese white female with BMI of 44.0 Head: Normocephalic, atraumatic ENT: PERRL, EOMI, no pharyngeal exudate, mucous membranes moist Chest: Clear to auscultation, on room air, no adventitious breath sounds Cardiac: Regular rate and rhythm, + few PVCs, no murmur, no JVD, normal peripheral pulses, good capillary refill Abdominal: NABS x 4 quadrants, soft, nondistended, nontender to palpation, no rebound or guarding Back: dressing c/d/i, BELA drain with serosanginous outs Extremities: Normal inspection, no peripheral edema or erythema, calfs nontender to palpation Psych: Normal mood and affect Neuro: AAO x 3, strength intact bilaterally and rated 5/5, no motor deficits, speech is clear, no peripheral sensory deficits Results & Data Results & Data Vital Signs (Past 12 Hours) Vital Signs Temp Pulse Pulse Resp Resp BP BP 02/10/25 13:07 36.6 C 70 18 138/86 02/10/25 10:04 72 18 02/10/25 10:04 02/10/25 08:24 36.6 C 71 16 148/88 H 02/10/25 08:06 Pulse Ox Pulse Ox O2 Del Method O2 Flow Rate 02/10/25 13:07 96 Nasal Cannula 1 02/10/25 10:04 92 Room Air 02/10/25 10:04 92 Room Air 02/10/25 08:24 92 Nasal Cannula 1 02/10/25 08:06 Nasal Cannula 3
[2025-02-10 22:10] VITALS: TEMP 98.2
--- NOTE | 2025-02-11 10:06 | Discharge Summary ---
Date of Service February 11, 2025 Admission HPI Per Admitting Provider This is a 69-year-old female who presents with chronic cyst and back and leg pain after failing course of nonoperative care is here for surgical invention. Principal Diagnosis Thoracic spinal stenosis with myelopathy Discharge Data Allergies Allergy/AdvReac Type Severity Reaction Status Date / Time adhesive Allergy Mild Red skin Verified 02/08/25 07:56 (if bandaids on for long time) No Known Drug Allergies Allergy Unknown NONE Verified 02/08/25 07:56 Consultations 02/08/25 13:13 Consult Hospitalist Routine Procedures Performed Operation Date: 02/08/25 09:15 Actual Procedures p T12-L2 Laminectony with Discectomy, T12-L2 Fusion(Not Applicable) - Israel Brennan DO Ordered Studies 02/08/25 [place] lumbar spine 2-3V Routine Hospital Course (1) Myelopathy concurrent with and due to spinal stenosis of thoracic region: Patient underwent lumbar decompression fusion tolerated so stayed orthopedic for postoperatively postoperative she progressed appropriate. Improvement of her ambulation. Pain well-controlled. BELA drain decreasing. Subsidy discharged home. Discharge orders instructions from the chart for further review. Total Time Total Time Spent Total Time Spent (In Minutes): 20 minutes Discharge Plan Discharge Items Patient Disposition: Home - Self-Care Reason For Visit: Herniation of Thorcolumar Intervertebral Disc Discharge Diagnosis: Thoracic spinal stenosis with myelopathy Activity: As commented below Non-emergency contact: Primary Care Provider Call non-emergency contact if: you have any medication questions Follow-up/Referrals: Sonali Martins PA-C [Primary Care Provider] - (Date & Time 02/17/2025 12:20 PM Provider: Sonali Martins PA-C [facility] ) Diet: Regular Addtl Attending Provider Instructions: ACTIVITY RECOMMENDATIONS: SELF CARE INSTRUCTIONS AFTER THORACIC/LUMBAR FUSIONS 1. You may walk to your tolerance. It is good exercise for your legs and back. Expect some back and intermittent leg aches and pains. 2. You may perform "counter-top" level activities (make a sandwich, juan with a project, etc.). 3. No bending or lifting of more than 10 pounds or back twisting of any nature (roll like a log when turning in bed). 4. You may ride in a car for 20-30 minutes at a time. No driving until after your first visit with your doctor. 5. Frequent changes of position and restricting sitting to 30 minutes at a time will help limit the amount of back spasms and stiffness you may experience. 6. You may discontinue the use of ambulatory aids (cane, crutches, etc.) once your strength and confidence allow. 7. You may calciner feeder the shower and let water strike your incision when you arrive home at least once daily. Do not take a tub bath, sit in a hot tub or go into a swimming pool until after your first recheck in the office. 8. You may resume previous diet. SPECIAL CARE INSTRUCTIONS: VERY IMPORTANT TO READ AND REVIEW A. Your surgical incision has been closed with a cosmetic suture under the skin that will dissolve in about 6 weeks. In 14 days, you can use a pair of clean scissors and cut the suture that is left outside of the skin at the ends of your incision. 1. The small skin tapes can be removed 7 days after surgery if they have not fallen off by that point. 2. You may keep the wound open to air as much as possible to promote healing after post-op day number 5 unless told otherwise by your doctor. 3. If you think the wound looks like it is becoming infected (redness or worsening drainage) and/or you are experiencing fever, chill or worsening back pain and muscle spasms, contact the office so that we may evaluate you as soon as possible. B. Complications are uncommon, but please contact us if you have any signs or symptoms of: 1. wound infection (fever higher than 102.5 degrees F, redness, separation of wound, drainage, or increasing pain from the incision) 2. blood clots in legs (pain, swelling, redness and warmth in legs) 3. urinary tract infection (fever higher than 102.5 degrees F, burning upon urination or increased frequency of urination) 4. nerve problems (inability to walk on your toes or heels, numbness, loss of bowel or bladder control) 5. any other symptoms that concern you C. Please call the office at if you have any concerns or questions about your operation or recovery. D. No smoking! Smoking drastically decreases the chance of a solid fusion. E. Do not take any anti-inflammatory medications (Indocin, Advil, Motrin, Aspirin, Naprosyn, etc.) as these may inhibit the chance of a solid fusion. Tylenol is okay to take for pain. MANAGING PAIN AFTER SPINAL SURGERY 1. Narcotic medication is intended for short-term use and will be provided for surgical pain. Surgical pain usually lasts for a period of 4-6 weeks. Narcotic medication includes Percocet, Vicodin, Darvocet, Tylenol #3 or Lortab. 2. Longer-term pain is more appropriately treated with non-narcotic medication such as Tylenol ES. 3. Muscle spasm is not appropriately treated with narcotics. Muscle relaxers such as Soma, Flexeril or Skelaxin can be used along with Tylenol ES. 4. Remember that we all live with some "aches and pains". This is not unusual or uncommon after an injury or as we get older. a. Back pain is expected and may include muscle spasms for 4 to 6 weeks aft er surgery. The pain should gradually improve. If the pain worsens for no apparent reason, please contact the office. b. Intermittent leg pain may also be experienced and should not be concerned about unless it worsens for no apparent reason. If so, please contact the office. 5. We will provide appropriate medication within the normal guidelines of their prescribed use. We will also be very cautious and aware of potential abuse and extended duration of patients' medication needs. a. Pain medications are for your comfort and to assist with sleep and rest so that the tissue can heal. They are not provided in order to return to normal activity and should not be used through the day. To do so or worsening pain at night can result from ongoing tissue damage and development of tolerance to the prescribed medicine. 6. Please allow 2-3 days to process refills. Prescriptions will not be mailed but must be picked up at the office. FOLLOW UP VISIT: Keep your scheduled follow-up appointment. Any questions, please call the office at . Pending Studies at Discharge: No Stand-Alone Forms: My [employer], Smoking Cessation Medications and DC Order Prescriptions: New tramadol 50 mg tablet 50 mg PO Q6H PRN (Reason: pain, moderate) Qty: 30 0RF oxycodone 5 mg tablet 5 mg PO Q6H PRN (Reason: pain) Qty: 30 0RF Continued meloxicam 15 mg tablet 15 mg PO QAM cholecalciferol (vitamin D3) 50 mcg (2,000 unit) capsule 50 mcg PO DAILY atorvastatin 20 mg Tablet 20 mg PO PM diltiazem HCl 240 mg Capsule,Extended Release 24 Hr 240 mg PO QAM levothyroxine 75 mcg Tablet 75 mcg PO QAM citalopram 20 mg Tablet 20 mg PO QAM pantoprazole 40 mg Tablet,Delayed Release (Dr/Ec) 40 mg PO QPM triamterene-hydrochlorothiazid 37.5-25 mg Tablet 1 tab PO QAM losartan 100 mg Tablet 100 mg PO QAM pregabalin [Lyrica] 50 mg Capsule 50 mg PO BID potassium chloride 20 mEq Tablet Extended Release 20 meq PO QDL omega [id number]-ysa-fish oil [Fish Oil] 1,200 (144-216) mg Capsule 2 cap PO DAILY Discharge Orders: Discharge Order (Routine); Ordered 02/11/25 Ordered By: Israel Brennan Admission Data Admit Date/Time: 02/08/25 11:41 Attending Provider: Israel Brennan Admit Provider: Israel Brennan Primary Care Provider: Sonali Martins Other Providers: [facility],Home Health; Emily Khoury; Óscar Singh
--- NOTE | 2025-02-11 10:27 | Electrocardiogram Report ---
Test Reason : Blood Pressure : */* mmHG Vent. Rate : 67 BPM Atrial Rate : 67 BPM P-R Int : 152 ms QRS Dur : 90 ms QT Int : 414 ms P-R-T Axes : 63 7 55 degrees QTcB Int : 437 ms Normal sinus rhythm Normal ECG When compared with ECG of 15-Aug-2020 09:59, No significant change was found Confirmed by Patrice Solano ([id number]) on 02/11/2025 10:27:06 AM Referred By: Israel Brennan Confirmed By: Patrice Solano
--- NOTE | 2025-02-11 10:50 | Hospitalist Progress Note ---
Date of Service February 11, 2025 Assessment & Plan (1) Myelopathy concurrent with and due to spinal stenosis of thoracic region: (2) S/P lumbar fusion: (3) Hypertension: (4) Hypothyroidism: (5) Hyperlipidemia: (6) Depression: (7) GERD (gastroesophageal reflux disease): (8) Sleep apnea: Plan 69 year old female with PMH significant for Type II DM controlled with diet, CKD stage III, hypothyroidism, HLD, NEVAEH, HTN, obesity, and thoracic spinal stenosis with myelopathy who underwent lumbar decompression and fusion of T12-L2 on 02/08/[address] Brennan. We have been consulted for post operative medical management. Myelopathy concurrent with and due to spinal stenosis of thoracic region s/p lumbar fusion POD#3 lumbar decompression with bilateral facetectomies and foraminotomies and fusion T12-L2 on 02/08/[address] Brennan Pain is well controlled with medications PT/OT evals recommending return to home DC to home today Acute blood loss anemia Preop Hgb 15-> 12.5-> stable at 11.9 on day of discharge Patient asymptomatic Post operative hypoxia-> resolved Patient required supplemental oxygen post operatively Ambulatory pulse ox on 02/10 completed Saturating well on room air since 02/10 Hypertension Home losartan and triamterene/HCTZ were held initially BP 160/89 this morning -> restarted losartan and triamterene/HCTZ on 02/11 Continue diltiazem Hypothyroidism Continue levothyroxine Hyperlipidemia Continue atorvastatin Depression Continue citalopram GERD Continue pantoprazole NEVAEH Continue CPAP HS DVT Prophylaxis: TEDs/SCDs per primary team Code Status: FULL CODE PCP: Sonali Martins Disposition: dc to home today per primary team Thank you for this consultation. We will continue to follow this patient with you. [facility] is available 24/09 via the role in [employer] - please don't hesitate to reach out with questions. Patient seen in collaboration with Dr. Singh. Please see addendum. I spent a total of 60 minutes coordinating, documenting and providing care for this patient excluding time spent in the performance of separately billed services or time spent by another provider/QHP. Admission and Anticipated Discharge Date Admission Date: February 08, 2025 Supervising Physician Co-Signing Physician Notes Patient was seen and examined at bedside as a follow-up of status post lumbar decompression and fusion. Patient reports improvement in her balance and walking after surgery. Patient reports being able to eat okay and moving gas. Will continue with bowel regimen. Patient otherwise is stable. Labs reviewed. I have seen and examined the patient and have discussed the case with the pr jasoner above. I agree with the assessment and plan as stated. Total time spent independently:14 minutes. Subjective Patient seen resting in bed Reports her pain is controlled with medications Denies weakness, numbness/tingling in her legs Denies dizziness, chest pain, SOB, abdominal pain, N/V/D Had two bowel movements Planning for dc to home today Review of Systems Review of Systems: All systems reviewed & are unremarkable except as noted in HPI & below Physical Exam Physical Exam: General/Psych: obese, sitting up in bed, NAD, conversing easily Head: normocephalic, atraumatic Eyes: normal inspection, PERRL, conjunctivae pink Neck: normal visual inspection, trachea midline Respiratory: normal respiratory effort, lungs clear to auscultation, no wheeze/rales/rhonchi, no accessory muscle use Cardiovascular: regular rate and rhythm, no murmur/rub/gallop Extremities: no cyanosis or clubbing, normal peripheral pulses, no BLE edema, sensation intact BLE, TEDs in place Abdomen/GI: normal bowel sounds, soft, nontender Neurologic/MSK: A+Ox3, motor strength 5/5, moves all extremities Skin: no rashes, normal color, warm and dry, island dressing c/d/i, BELA drain with serosanguineous output Results & Data Results & Data Vital Signs (Past 12 Hours) Vital Signs Temp Pulse Resp BP Pulse Ox O2 Del Method 02/11/25 07:16 36.8 C 66 18 160/89 H 93 Room Air Laboratory Results Short CBC 02/11/25 Range/Units 10:48 WBC 16.96 H (4.8-10.8) K/ul Hgb 11.9 L (12.0-16.0) g/dL Hct 35.0 L (37.0-47.0) % Plt Count 280 (130-400) K/uL BMP 02/11/25 10:48 Sodium 139 Potassium 4.1 Chloride 101 Carbon Dioxide 31 BUN 30 H Creatinine 1.08 Glucose 148 H Calcium 8.6 I have independently reviewed and interpreted patient's labs including CBC and BMP. Medications Administered Current Inpatient Medications Acetaminophen (Acetaminophen 500 Mg Tab) 1,000 mg PO Q8H PRN PRN Reason: MILD Pain (1,2,3) & Pre PT Stop: 03/10/25 13:12 Al Hydrox/Mg Hydrox/Simethicone (Aluminum/Magnesium Susp 30 Ml Udc) 30 ml PO Q6H PRN PRN Reason: Dyspepsia Stop: 03/10/25 13:12 Atorvastatin Calcium (Atorvastatin 20 Mg Tab) 20 mg PO PM [facility] Stop: 03/10/25 20:59 Last Admin: 02/10/25 20:12 Dose: 20 mg Bisacodyl (Bisacodyl 10 Mg Supp) 10 mg SD DAILY PRN PRN Reason: Constipation Stop: 03/10/25 13:12 Citalopram Hydrobromide (Citalopram 20 Mg Tab) 20 mg PO QAM [facility] Stop: 03/11/25 08:59 Last Admin: 02/11/25 09:06 Dose: 20 mg Diltiazem HCl (Diltiazem Hcl 240 Mg Capcr) 240 mg PO QAM [facility] Stop: 03/12/25 08:59 Last Admin: 02/11/25 09:06 Dose: 240 mg Diphenhydramine HCl (Diphenhydramine Capsule 25 Mg Cap) 25 mg PO Q6H PRN PRN Reason: Allergic Rhinitis/Insomnia Stop: 03/10/25 13:12 Famotidine (Famotidine 20 Mg Tab) 20 mg PO Q12H PRN PRN Reason: Dyspepsia Stop: 03/10/25 13:12 Hydromorphone HCl (Hydromorphone Inj 0.5 Mg/0.5 Ml Syr) 0.5 mg IV Q3H PRN PRN Reason: MODERATE Pain(4,5,6)/Pre PT Stop: 02/22/25 13:12 Hydromorphone HCl (Hydromorphone Inj 1 Mg/Ml Syringe) 1 mg IV Q3H PRN PRN Reason: SEVERE Pain (7,8,9,10) Stop: 02/22/25 13:12 Hydroxyzine HCl (Hydroxyzine Hcl 25 Mg Tab) 25 mg PO Q8H PRN PRN Reason: Anxiety Stop: 03/10/25 13:12 Promethazine HCl (Phenergan) 12.5 mg in 50.5 mls @ 202 mls/hr IV Q6H PRN PRN Reason: Nausea And Vomiting Stop: 03/10/25 13:12 Lorazepam 0.5 mg/ Syringe 0.5 mls @ 2 mls/min IV Q8H PRN PRN Reason: Sedation/Anxiety Stop: 03/10/25 13:12 Influenza Virus Vaccine Quadrival (Do Not Administer Flu Vaccine) 1 each N/A PRN PRN PRN Reason: Notification Stop: 03/10/25 13:12 Levothyroxine Sodium (Levothyroxine Sodium 75 Mcg Tablet) 75 mcg PO DAILYBB [facility] Stop: 03/11/25 06:29 Last Admin: 02/11/25 06:10 Dose: 75 mcg Lorazepam (Lorazepam 0.5 Mg Tab) 0.5 mg PO Q8H PRN PRN Reason: Sedation/Anxiety Stop: 03/10/25 13:12 Losartan Potassium (Losartan Potassium 50 Mg Tab) 100 mg PO QAM [facility] Stop: 03/11/25 08:59 Magnesium Hydroxide (Magnesium Hydroxide Susp 30 Ml Udc) 30 ml PO Q24H PRN PRN Reason: Constipation Stop: 03/10/25 13:12 Metoclopramide HCl (Metoclopramide Hcl Inj 5 Mg/Ml 2 Ml Vial) 10 mg IV Q6H PRN PRN Reason: Nausea &/or Vomiting Stop: 03/10/25 13:12 Naloxone HCl (Naloxone Hcl 0.4 Mg/1 Ml Vial/Carp) 0.1 mg IV Q5M PRN PRN Reason: Oversedation/Resp depression Stop: 03/10/25 13:12 Ondansetron HCl (Ondansetron Inj 2 Mg/Ml 2 Ml Vial) 4 mg IV Q6H PRN PRN Reason: Nausea &/or Vomiting Stop: 03/10/25 13:12 Ondansetron HCl (Ondansetron 4 Mg Od Tab) 4 mg PO Q6H PRN PRN Reason: Nausea Stop: 03/10/25 13:12 Oxycodone HCl (Oxycodone Hcl Ir 5 Mg Tab (Immediate Release)) 5 - 10 mg PO Q4H PRN PRN Reason: MOD/SEV Pain & Pre PT Stop: 02/22/25 13:12 Last Admin: 02/11/25 10:19 Dose: 10 mg Pantoprazole Sodium (Pantoprazole 40 Mg Tab) 40 mg PO QPM [facility] Stop: 03/10/25 20:59 Last Admin: 02/10/25 20:13 Dose: 40 mg Pneumococcal Polyvalent Vaccine (Do Not Administer Pneumococcal Vaccine) 1 each N/A PRN PRN PRN Reason: Notification Stop: 03/10/25 13:12 Potassium Chloride (Potassium Chloride Crtab 20 Meq Tabcr) 20 meq PO QDL [facility] Stop: 03/11/25 11:29 Last Admin: 02/10/25 12:28 Dose: 20 meq Pregabalin (Pregabalin 50 Mg Cap) 50 mg PO BID [facility] Stop: 03/10/25 20:59 Last Admin: 02/11/25 09:06 Dose: 50 mg Senna/Docusate Sodium (Docusate Sodium/Senna 50/8.6mg Tab) 2 tab PO HS [facility] Stop: 03/10/25 20:59 Last Admin: 02/10/25 20:11 Dose: 2 tab Sodium Biphosphate/Sodium Phosphate (Sod Phosphate/Sod Biphosphate Enema 132 Ml Btl) 132 ml SD ONE PRN PRN Reason: Constipation Stop: 03/10/25 13:12 Tramadol HCl (Tramadol Hcl 50 Mg Tablet) 50 - 100 mg PO Q4H PRN PRN Reason: MOD/SEV Pain & Pre PT Stop: 03/10/25 13:12 Triamterene/Hydrochlorothiazide (Triamterene/Hctz 37.5/25mg Tab) 1 tab PO QAM [facility] Stop: 03/11/25 08:59 Vitamin D (Cholecalciferol 25 Mcg (1000 Units) Tab) 50 mcg PO DAILY [facility] Stop: 03/11/25 08:59 Last Admin: 02/11/25 09:06 Dose: 50 mcg
[2025-02-11] MEDS: LOSARTAN POTASSIUM 50 MG TAB PO STA (11:00)
[2025-02-11 11:10] LABS: Hematocrit (blood only) 35.0 % (37.0-47.0); Hemoglobin 11.9 g/dL (12.0-16.0); Mean Corpuscular Hemoglobin 29.3 pg (25.0-34.0); Mean Corpuscular Volume 86.2 fL (80.0-100.0); Platelet Count 280 K/uL (130-400); RDW Standard Deviation 43.0 fL (36.4-46.3); Red Blood Count 4.06 M/uL (4.20-5.40); White Blood Count 16.96 K/ul (4.8-10.8)
[2025-02-11 11:30] LABS: Anion Gap 7.0 (3-11); Blood Urea Nitrogen 30.0 mg/dl (6-23); Calcium 8.6 mg/dl (8.6-10.3); Carbon Dioxide 31.0 mmol/L (21-32); Chloride 101.0 mmol/L (98-107); Creatinine Clr Calc Pharmacy 57.7 ml/min; Glucose 148.0 mg/dl (70-99(Fasting)); Potassium 4.1 mmol/L (3.5-5.1); Sodium 139.0 mmol/L (136-145)
[2025-02-11] MEDS: TRIAMTERENE/HCTZ 37.5/25MG TAB PO STA (11:40)
[2025-02-11 11:46] VITALS: BP 143/69; PULSE 64; RESP 16; O2SAT 92
== END 2025-02-11 13:06 | disposition home or self-care (01) | DRG 427 ==
LOC: ASU 07:39 → 3E 11:41